=== PATIENT | female | born 1945 | race Caucasian/White ===

== ENCOUNTER → 2018-03-22 08:52 | Outpatient (CLI) | payer MEDICARE, OTHER, SELFPAY ==
[2018-03-22 10:19] LABS: Absolute Lymphocyte Count 1.57 X10^3/ul (0.83-4.51); Absolute Neutrophil Count 2.2 X10^3/uL (2.0-7.7); Basophil# 0.02 X10^3/uL; Basophil% 0.5 % (0-1); Eosinophil# 0.16 X10^3/uL; Eosinophils% 3.7 % (0-5); Hematocrit 48.2 % (37-47); Hemoglobin 16.4 g/dl (12.0-15.0); Lymphocyte # 1.57 X10^3/ul (4.0); Mean Corpuscular Hgb 30.8 pg (27.0-32.0); Mean Corpuscular Volume 90.4 fL (81-99); Mean Platelet Vol. 10.2 fl (6.2-12.0); Monocyte% 9.2 % (0-10); Neutrophil % 50.4 % (47-70); Platelet Count 207 K/mm3 (150-450); RBC Distribution Width CV 13.2 % (11.6-14.6); RBC Distribution Width SD 43.5 fl (35.1-43.9); Red Blood Count 5.33 M/mm3 (4.2-5.4); White Blood Count 4.4 K/mm3 (4.4-11.0)
[2018-03-22 10:22] LABS: POSITIVE COUNT NO; POSITIVE DIFFERENTIAL NO; POSITIVE MORPHOLOGY NO
[2018-03-22 10:43] LABS: Anion Gap 7 (5-15); BUN 18 mg/dL (7-18); BUN/Creat Ratio 19.4 RATIO (10-20); Calcium,Total 9.3 mg/dL (8.5-10.1); Chloride 104 mmol/L (98-107); Cholesterol 209 mg/dL (200); Creatinine, Serum 0.93 mg/dL (0.55-1.02); EST Glomerular Filtration Rate 63 mL/min (>60); Est Glom Filt Rate - Afr Amer 76 mL/min (>60); Glucose 118 mg/dL (74-106); High Density Lipoprotein 64 mg/dL; Potassium 4.2 mmol/L (3.5-5.1); Sodium Level 140 mmol/L (136-145); Thyroid Stim Hormone (TSH) 3.05 uIU/mL (0.358-3.74); Triglycerides 200 mg/dL; Very Low Density Lipoprotein 40 mg/dL (5-40)
[2018-03-22 11:13] LABS: Hemoglobin A1c 6.2 % (4.2-6.3)
== END ==
PROVIDERS: Family Provider Family Medicine; PCP Family Medicine; Visit Provider Family Medicine
DX: Z00.00 Encounter for general adult medical examination without abnormal findings (principal); R35.8 Other polyuria
CPT/HCPCS: 36415; 80048; 80061; 83036; 84443; 85025

== ENCOUNTER → 2018-03-26 15:22 | Outpatient (CLI) | payer MEDICARE, OTHER, SELFPAY ==
--- NOTE | 2018-03-26 15:24 | BI_ITS ---
MAMMOGRAPHY - BILATERAL SCREENING REASON FOR EXAM: Female, 73 years old. Routine annual screening examination. PERTINENT HISTORY: Aunt with breast cancer. TECHNIQUE: Digital bilateral breast velvet (3D mammographic acquisition) in the CC and MLO projections. 2-D mediolateral oblique (MLO) and craniocaudad (CC) views of both breasts were obtained. CAD: Full Field Digital Mammography with Computer Added Detection was performed. COMPARISON: Comparison is made with prior study dated July 24, 2015 and March 09, 2014. FINDINGS: Breast Composition: There are scattered areas of fibroglandular density. There are no dominant masses or suspicious calcifications. No other significant abnormalities are identified. There has been no significant change since the prior study. BI/SCREENING MAMM (CAD), BILAT IMPRESSION: Stable bilateral screening mammogram. Yearly follow-up mammogram recommended. (A) ASSESSMENT CATEGORY: BIRADS Category 1: Negative. A letter regarding these results will be sent to the patient by the facility within 30 days. Approximately 10% of breast cancers are not detected by mammography. A normal mammogram should not delay biopsy of a clinically suspicious abnormality. [id number] Electronically Signed: Ventura Winn MD at 8:02 EDT Tel [phone], Service support ,
== END ==
PROVIDERS: Family Provider Family Medicine; PCP Family Medicine; Visit Provider Family Medicine
DX: Z12.31 Encounter for screening mammogram for malignant neoplasm of breast (principal)
CPT/HCPCS: 77063; 77067

== ENCOUNTER → 2018-09-07 11:12 | Outpatient (CLI) | payer MEDICARE, OTHER, SELFPAY ==
[2018-09-07 14:11] LABS: Vitamin B12 737 pg/mL (211-911)
[2018-09-07 14:15] LABS: Microalbumin,Random Urine 33.1 mg/L (NO RANGE EST.); Microalbumin:Creatinine Ratio 28.3 mg/g CRE (<30 mg/g CRE)
[2018-09-07 14:44] LABS: AST(SGOT) 21 U/L (15-37); Alanine Aminotransfer ALT/SGPT 30 U/L (13-56); Albumin, Serum 3.9 g/dL (3.2-5.0); Alkaline Phosphatase 56 U/L (45-117); Anion Gap 10 (5-15); BUN 23 mg/dL (7-18); BUN/Creat Ratio 24.8 RATIO (10-20); Calcium,Total 9.3 mg/dL (8.5-10.1); Chloride 103 mmol/L (98-107); Creatinine, Serum 0.93 mg/dL (0.55-1.02); EST Glomerular Filtration Rate 63 mL/min (>60); Est Glom Filt Rate - Afr Amer 77 mL/min (>60); Glucose 105 mg/dL (74-106); Potassium 3.8 mmol/L (3.5-5.1); Protein, Total 7.9 g/dL (6.4-8.2); Sodium Level 142 mmol/L (136-145); T4 Free Direct 0.82 ng/dL (0.76-1.46)
== END ==
PROVIDERS: Family Provider Family Medicine; PCP Family Medicine; Visit Provider Family Medicine
DX: E88.81 Metabolic syndrome and other insulin resistance (principal); R53.81 Other malaise
CPT/HCPCS: 36415; 80053; 82043; 82570; 82607; 82746; 84439; 84443

== ENCOUNTER 2018-10-07 14:00 | Outpatient (RCR) | payer MEDICARE, OTHER, SELFPAY ==
--- NOTE | 2018-10-08 07:35 | HP.PTEVAL_ITS ---
Patient's Visit Information GARCIA MELGOZA is a 73 year old F referred to Physical Therapy by Fer Hough with a diagnosis of RTC tenderness. Date of Evaluation: 09/09/18 Physical Therapist: Jm Robles - Visit Plan Frequency: 1x/Week Duration: 4-6 Weeks Plan: Start with RTC ROM AAROM progressing to RTC stability/strength exsercises as tolerated. May use modalities if needed to decrease symptoms. - Subjective Findings: Pt. is here today for her initial evaluation with diagnosis of R RTC tenderness. Pt reports having increased pain in her R shouder, expecially with reaching over head and with attempting to lift anything. She is having difficulty with upper body dressing and with sleeping on her R side. Pt. denies N/T in her arm and no raidiating pain. Pt. reports pain is isolated to R subacromial space. Pt. has some pain in R deltoid. Pt. reports being able to complete most ADLs, but has increased pain while doing so. Pt. is hopeful to reduce symptoms in order get back to completing all ADLs without issues. - Pain R shoulder Pain Intensity (Out of 10): 4 Pain Intensity Range: 0 Comment: only with certain positions. - Objective POSTURE: Pt. has rounded shoulders, equal shoulder heights. Pt. has increased thoracic kyphosis, but is able to correct with TC/VCing. FH posture. PALPATION: Pt. has slight tenderness along posterior aspect of R subacromial space and R bicpitial groove. No pain through rest of shoulder. NEURO: Pt. has normal neuro signs. Normal DTR of bilateral UEs. Pt. has normal sensation. ROM: L shoulder: flexion 177deg, abd 175deg, Functional ER C5 functional IR L2. R shoulder- flexion 170deg increase NW, abd 165deg increase NW, functional ER C4 NE, functional IR L5 increase NW. MMT: LUE- wrist/elbow 5/5 throughout; shoulder- flexon 4+/5, abd 4+/5, ER 4+/5, IR 4+/5, ext 5/5. RUE- wrist/elbow 5/5 throughout; shoulder- flexion 4/5 mild increase NW, abd 4/5 mild increase NW, ER 4/5 increase NW, IR 4+/5 NE, ext 5/5 NE. - Special Tests R Shoulder Drop Sign - IS Test: Negative R Shoulder Empty Can - SS: Positive R Shoulder Belly Press - SupScap: Negative R Shoulder Neer - Impingement: Positive R Shoulder Farooq Fadi - Impingement: Positive R Shoulder Biceps Load Test - Labrum: Negative R Shoulder Speeds Test - Labrum/Biceps: Negative - Goals Goal 1:: Pt to be I with HEP. Goal Time Frame: 4-6 Weeks Goal 2:: Pt. to have increased R shoulder ROM symmetrical to L side without increase in symptoms. Goal Time Frame: 4-6 Weeks Goal 3:: Pt. to have increased R shoulder strength by 1/2 grade of all effected musculature in order to increase stability and joint. Goal Time Frame: 4-6 Weeks Goal 4:: Pt. to sleep throughout the night without increase in symptoms. Goal Time Frame: 4-6 Weeks Goal 5:: Pt. able to complete all ADls and house work without increase in symptoms. Goal Time Frame: 4-6 Weeks - Rehabilitation Potential Physical Therapy Diagnosis: Pt. has signs and symptoms consistent with R RTC pathology. Pt. does not appear to have a tear of the RTC, as she has decent strength and ROM. Pt. does have a slight painful arc with abduction movements. Pt. appears to have a RTC tendonosis and would benefit from PT to increase R shoulder ROM, strength and decreased symptoms in order to get back to all ADLS and recreational activities withotu increase in symptoms. Rehabilitation Potential: Excellent - Anticipated Interventions Patient/Client Instruction: Educate patient on: Condition, Plan of Care, Risk Factors, Benefits of Fitness Program For the Purpose of:: To foster healthy habits, To improve decision making, To facilitate caregiver knowledge, To improve self management, To prevent re- injury, To improve ability to perform tasks related to life management, To improve tolerance to ADL's Therapeutic Exercise to Include: Strength training, Power training, Postural training, Flexibilty training, Passive ROM, Active ROM, Scapular Strength/Stabilization For the Purpose of:: To decrease pain, To decrease swelling/inflammation, To increase ROM, To improve nutrient delivery to tissue, To increase oxygenation perfusion, To improve muscle performance and motor function, To improve ability to perform ADL's, To improve health of tissue, To decrease soft tissue restriction, To increase flexibility/ROM Manual Therapy Techniques to Include: Mobilization, Functional dry needling, Soft tissue mobilization For the Purpose of:: To decrease pain, To decrease swelling/inflammation, To increase ROM, To improve nutrient delivery to tissue Cryotherapy (ice pack, ice massage): Yes Ultrasound (thermal/non thermal): Yes For the Purpose of:: To decrease pain, To decrease swelling/inflammation, To increase ROM Thank you for the opportunity to evaluate your patient. For Medicare and Medicare HMO plans, please review the plan of care and approve it. It will need to be FAXED BACK to us at [phone] for Medicare purposes. For Medicare only, by signing this I certify the plan of care. Please let me know if there are questions or concerns regarding this plan of care. Physician Signature: Date:
--- NOTE | 2018-10-08 07:49 | HP.PTREVAL_ITS ---
Fer Hough, It has been my pleasure to treat GARCIA MELGOZA over the last 5 visits for RTC tenderness. Please see the progress note below for an update on the physical therapy plan of care! Subjective: Pt. reports I am doing pretty well I just fell a little weak in my shoulder, I am not having much pain any more. She reports being HEP compliant without issues. Pt. pleased. Objective/Function: ROM: R shoulder- flexion- 175deg, abd 173deg, Functional IR L2, functional ER C5 no pain. MMT: flexion 4+/5, abd 4+/5, ER 4+/5, IR 5/5, ext 5/5. Pt. reports being able to sleep withtout increase in symptoms. Pt. does have mild increase in symptoms with reaching out with wt., but minimal, no lasting symptoms. Pt. is independent with HEP without issues. Plan Plan: Start with RTC ROM AAROM progressing to RTC stability/strength exsercises as tolerated. May use modalities if needed to decrease symptoms. Goals Goal 1:: Pt to be I with HEP. Goal Time Frame: 4-6 Weeks Goal Progress: Goal Met Goal 2:: Pt. to have increased R shoulder ROM symmetrical to L side without increase in symptoms. Goal Time Frame: 4-6 Weeks Goal Progress: Goal Met Goal 3:: Pt. to have increased R shoulder strength by 1/2 grade of all effected musculature in order to increase stability and joint. Goal Time Frame: 4-6 Weeks Goal Progress: Goal Met Goal 4:: Pt. to sleep throughout the night without increase in symptoms. Goal Time Frame: 4-6 Weeks Goal Progress: Goal Met Goal 5:: Pt. able to complete all ADls and house work without increase in symptoms. Goal Time Frame: 4-6 Weeks Goal Progress: Progressing Anticipated Interventions Patient/Client Instruction: Educate patient on: Condition, Plan of Care, Risk Factors, Benefits of Fitness Program For the Purpose of:: To foster healthy habits, To improve decision making, To facilitate caregiver knowledge, To improve self management, To prevent re- injury, To improve ability to perform tasks related to life management, To improve tolerance to ADL's Therapeutic Exercise to Include: Strength training, Power training, Postural training, Flexibilty training, Passive ROM, Active ROM, Scapular Strength/Stabilization For the Purpose of:: To decrease pain, To decrease swelling/inflammation, To increase ROM, To improve nutrient delivery to tissue, To increase oxygenation perfusion, To improve muscle performance and motor function, To improve ability to perform ADL's, To improve health of tissue, To decrease soft tissue restriction, To increase flexibility/ROM Manual Therapy Techniques to Include: Mobilization, Functional dry needling, Soft tissue mobilization For the Purpose of:: To decrease pain, To decrease swelling/inflammation, To increase ROM, To improve nutrient delivery to tissue Cryotherapy (ice pack, ice massage): Yes Ultrasound (thermal/non thermal): Yes For the Purpose of:: To decrease pain, To decrease swelling/inflammation, To increase ROM Please do not hesitate to contact me at [phone] by phone or if you have questions or concerns regarding this new plan of care! Sincerely, Jm Robles
--- NOTE | 2019-01-05 12:29 | HP.PT.NRP ---
HP - Discharge Summary (1) - Patient Information GARCIA MELGOZA was seen in my office for initial evaluation on 09/09/18. The following Plan of Care was established for this patient: Initial Frequency: 1x/Week Initial Duration: 4-6 Weeks - Anticipated Interventions Patient/Client Instruction: Educate patient on: Condition, Plan of Care, Risk Factors, Benefits of Fitness Program For the Purpose of:: To foster healthy habits, To improve decision making, To facilitate caregiver knowledge, To improve self management, To prevent re-injury, To improve ability to perform tasks related to life management, To improve tolerance to ADL's Therapeutic Exercise to Include: Strength training, Power training, Postural training, Flexibilty training, Passive ROM, Active ROM, Scapular Strength/Stabilization For the Purpose of:: To decrease pain, To decrease swelling/inflammation, To increase ROM, To improve nutrient delivery to tissue, To increase oxygenation perfusion, To improve muscle performance and motor function, To improve ability to perform ADL's, To improve health of tissue, To decrease soft tissue restriction, To increase flexibility/ROM Manual Therapy Techniques to Include: Mobilization, Functional dry needling, Soft tissue mobilization For the Purpose of:: To decrease pain, To decrease swelling/inflammation, To increase ROM, To improve nutrient delivery to tissue Cryotherapy (ice pack, ice massage): Yes Ultrasound (thermal/non thermal): Yes For the Purpose of:: To decrease pain, To decrease swelling/inflammation, To increase ROM This patient was last seen in our office 10/07/18. Pertinent comments regarding their Physical therapy will appear below: PT. ws seen for her RTC pain. Pt. was treated with strengthening, ROM and US. Pt. was doing 85% better at our last visit. She was to follow up with PT if needed. Pt. has not been seen in several months. Pt. will be DC from PT at this point intime. At this point I will be discontinuing this patient from physical therapy. I would be happy to see this patient again in the future if found appropriate by the physician. Thank you! Jm Robles, NATASHAT
== END 2018-10-07 19:00 | disposition home or self-care (01) ==
LOC: PT 14:00
PROVIDERS: Family Provider Family Medicine; PCP Family Medicine; Referring Provider Family Medicine; Visit Provider Family Medicine
DX: M25.511 Pain in right shoulder (principal)
CPT/HCPCS: 97110; 97161

== ENCOUNTER 2018-11-17 18:39 | Emergency (ER) | payer MEDICARE, OTHER, SELFPAY ==
[2018-11-17 18:40] VITALS: BP 200/98; PULSE 89; RESP 16; TEMP 36.3; O2SAT 96; BMI 35.9
[2018-11-17 18:59] VITALS: TEMP 36.3
--- NOTE | 2018-11-17 19:08 | ED.VISSUMM ---
- ER Visit Summary Date of Service: 11/17/18 Chief Complaint: Dog bite left thumb History of Present Illness: The patient is a 73 F that was bitten by an older dog on her left thumb. Patient states this is not her pet. She is unsure of her last tetanus update. She is right-hand dominant. Physical Examination: Vital signs significant for blood pressure of 200/98, otherwise unremarkable. Patient sitting in a bedside chair no acute distress. Head neck examination is unremarkable. Heart is regular rate and rhythm. Lung sounds are clear. Left upper extremity examination was a puncture wound to the pad of the left thumb measuring approximately 0.5 cm. There is no active bleeding at this time. She has full range of motion and sensation is intact. Test Results: Left thumb x-rays reveal no evidence of foreign body. Emergency Department Course and Treatment: Patient is given tetanus update along with p.o. Augmentin. Wound is cleansed and dressed. She be discharged with 3 days of antibiotics at home. Treatment Plan: [] Disposition: Discharge Impression: Dog bite left thumb This note was generated with [employer] dictation software. It may contain incorrect words, spelling, and punctuation that were not noted in review of the chart prior to signing ED Disposition - Plan for ED Patient: Chief Complaint: Bite Referrals: Fer Hough MD [Primary Care Provider] -
--- NOTE | 2018-11-17 19:10 | RAD_ITS ---
STUDY: X-RAY - LEFT HAND, ATTENTION FIRST FINGER REASON FOR EXAM: Female, 73 years old. Dogbite TECHNIQUE: 3 view(s) of the finger were obtained. COMPARISON: None. FINDINGS: There are degenerative changes of the carpometacarpal joint. Normal metacarpal. Normal metacarpophalangeal joint. Normal proximal phalanx. Normal distal phalanx. Normal interphalangeal joint. Soft tissues appear grossly unremarkable. RAD/Finger(s) Min 2 Views IMPRESSION: 1. There are no No opaque foreign body. 2. No fracture or dislocation. Electronically Signed: Ronaldo Barba DO at 19:37 EST Tel [phone], Service support ,
--- NOTE | 2018-11-17 19:11 | ED.DEP ---
ED Disposition - Plan for ED Patient: Disposition: Home or Assisted Living Chief Complaint: Bite Instructions: ED Bite Dog Prescriptions: Amox/Clavulanate Tablet [Augmentin Tablet] 875 mg PO Q12H #6 tablet Referrals: Fer Hough MD [Primary Care Provider] - 1 Week
[2018-11-17] MEDS: Diphth,Pertuss(Acell),Tet Vac 0.5 ML Vial IM (19:12)
[2018-11-17] MEDS: Amox/Clavulanate 875 MG Tablet PO (19:12)
== END 2018-11-17 19:54 | disposition home or self-care (01) ==
LOC: ED 19:26
PROVIDERS: Emergency Provider Emergency Medicine; Family Provider Family Medicine; PCP Family Medicine
DX: S61.052A Open bite of left thumb without damage to nail, initial encounter (principal); W54.0XXA Bitten by dog, initial encounter; Y93.9 Activity, unspecified; Y92.89 Other specified places as the place of occurrence of the external cause; Y99.9 Unspecified external cause status; Z23 Encounter for immunization; I10 Essential (primary) hypertension; F32.9 Major depressive disorder, single episode, unspecified
CPT/HCPCS: 73140; 90471; 90715; 99282

== ENCOUNTER → 2019-04-22 11:12 | Outpatient (CLI) | payer MEDICARE, OTHER, SELFPAY ==
--- NOTE | 2019-04-22 11:16 | RAD_ITS ---
HISTORY:left knee pain for several months now left knee pain for several months now COMPARISON: None FINDINGS: # of images incl. paperwork: 4 XR Knee Complete 4 Views or More: Left BONE AND JOINTS: No acute fracture or subluxation. There is minimal lateral patellar tilt SOFT TISSUES: Unremarkable. No radiopaque foreign body. RAD/Knee 4 or More Views IMPRESSION: No acute pathology Minimal lateral patellar tilt If symptoms persist consider MRI for further evaluation at [phone] Reported and signed by: Tri Carter DO Electronically Signed: Tri Carter DO at 0:07 EDT Tel , Service support ,
== END ==
PROVIDERS: Family Provider Family Medicine; PCP Family Medicine; Referring Provider Family Medicine; Visit Provider Family Medicine
DX: M25.562 Pain in left knee (principal)
CPT/HCPCS: 73564

== ENCOUNTER → 2019-05-05 10:39 | Outpatient (CLI) | payer MEDICARE, OTHER, SELFPAY ==
[2019-05-05 12:16] LABS: Absolute Lymphocyte Count 2.35 X10^3/ul (0.83-4.51); Basophil# 0.03 X10^3/uL; Basophil% 0.5 % (0-1); Eosinophil# 0.14 X10^3/uL; Eosinophils% 2.3 % (0-5); Hematocrit 46.2 % (37-47); Hemoglobin 15.9 g/dl (12.0-15.0); Lymphocyte # 2.35 X10^3/ul (4.0); Lymphocyte % 38.4 % (19-41); Mean Corp Hgb Conc 34.4 g/gl (32-36); Mean Corpuscular Hgb 30.9 pg (27.0-32.0); Mean Corpuscular Volume 89.7 fL (81-99); Mean Platelet Vol. 9.7 fl (6.2-12.0); Monocyte# 0.57 X10^3/uL; Monocyte% 9.3 % (0-10); Neutrophil # 3.02 X10^3/uL (2.7-7.7); Neutrophil % 49.3 % (47-70); Platelet Count 216 K/mm3 (150-450); RBC Distribution Width CV 13.1 % (11.6-14.6); RBC Distribution Width SD 42.8 fl (35.1-43.9); Red Blood Count 5.15 M/mm3 (4.2-5.4); White Blood Count 6.1 K/mm3 (4.4-11.0)
[2019-05-05 12:17] LABS: POSITIVE COUNT NO; POSITIVE DIFFERENTIAL NO; POSITIVE MORPHOLOGY NO
[2019-05-05 12:36] LABS: Microalbumin,Random Urine 15.1 mg/L (NO RANGE EST.); Microalbumin:Creatinine Ratio 22.5 mg/g CRE (<30 mg/g CRE)
[2019-05-05 12:46] LABS: ALB/GLOB Ratio 1.2 RATIO (0.9-2.4); AST(SGOT) 21 U/L (15-37); Alanine Aminotransfer ALT/SGPT 32 U/L (13-56); Albumin, Serum 4.1 g/dL (3.2-5.0); Alkaline Phosphatase 69 U/L (45-117); Anion Gap 5 (5-15); BUN 25 mg/dL (7-18); Calcium,Total 9.5 mg/dL (8.5-10.1); Chloride 105 mmol/L (98-107); Creatinine, Serum 0.96 mg/dL (0.55-1.02); EST Glomerular Filtration Rate 60 mL/min (>60); Est Glom Filt Rate - Afr Amer 73 mL/min (>60); Globulin 3.5 g/dL (2.2-4.2); Glucose 91 mg/dL (74-106); Protein, Total 7.6 g/dL (6.4-8.2); Sodium Level 139 mmol/L (136-145); Thyroid Stim Hormone (TSH) 3.73 uIU/mL (0.358-3.74)
== END ==
PROVIDERS: Family Provider Family Medicine; PCP Family Medicine; Referring Provider Family Medicine; Visit Provider Family Medicine
DX: I10 Essential (primary) hypertension (principal); M17.10 Unilateral primary osteoarthritis, unspecified knee
CPT/HCPCS: 36415; 80053; 82043; 82570; 84443; 85025

== ENCOUNTER → 2019-07-22 07:56 | Outpatient (CLI) | payer MEDICARE, OTHER, SELFPAY ==
[2019-07-22 11:05] LABS: AST(SGOT) 23 U/L (15-37); Alanine Aminotransfer ALT/SGPT 35 U/L (13-56); Albumin, Serum 3.8 g/dL (3.2-5.0); Alkaline Phosphatase 57 U/L (45-117); Anion Gap 3 (5-15); BUN 21 mg/dL (7-18); BUN/Creat Ratio 21.7 RATIO (10-20); Calcium,Total 9.1 mg/dL (8.5-10.1); Chloride 105 mmol/L (98-107); Creatinine, Serum 0.97 mg/dL (0.55-1.02); EST Glomerular Filtration Rate 60 mL/min (>60); Est Glom Filt Rate - Afr Amer 73 mL/min (>60); Globulin 3.7 g/dL (2.2-4.2); Glucose 117 mg/dL (74-106); Protein, Total 7.5 g/dL (6.4-8.2); Sodium Level 139 mmol/L (136-145)
[2019-09-21 09:56] VITALS: BMI 35.9
== END ==
PROVIDERS: Family Provider Family Medicine; PCP Family Medicine; Referring Provider Family Medicine; Visit Provider Family Medicine
DX: I10 Essential (primary) hypertension (principal)
CPT/HCPCS: 36415; 80053

== ENCOUNTER → 2019-08-04 08:36 | Outpatient (CLI) | payer MEDICARE, OTHER, SELFPAY ==
[2019-08-04 10:03] LABS: Absolute Lymphocyte Count 1.77 X10^3/uL (0.83-4.51); Absolute Neutrophil Count 2.6 X10^3/uL (2.0-7.7); Basophil# 0.04 X10^3/uL; Basophil% 0.8 % (0-1); Eosinophil# 0.16 X10^3/uL; Eosinophils% 3.2 % (0-5); Hematocrit 46.3 % (37-47); Hemoglobin 15.4 g/dL (12.0-15.0); Lymphocyte # 1.77 X10^3/ul (4.0); Lymphocyte % 35.7 % (19-41); Mean Corp Hgb Conc 33.3 g/dL (32-36); Mean Corpuscular Hgb 30.4 pg (27.0-32.0); Mean Corpuscular Volume 91.5 fL (81-99); Mean Platelet Vol. 9.8 fl (6.2-12.0); Monocyte% 8.1 % (0-10); NRBC Flagged by Analyzer 0 % (0-5); Neutrophil # 2.57 X10^3/uL (2.7-7.7); Neutrophil % 51.8 % (47-70); Platelet Count 209 K/mm3 (150-450); RBC Distribution Width CV 12.7 % (11.6-14.6); RBC Distribution Width SD 42.4 fl (35.1-43.9); Red Blood Count 5.06 M/mm3 (4.2-5.4)
[2019-08-04 10:41] LABS: AST(SGOT) 23 U/L (15-37); Alanine Aminotransfer ALT/SGPT 32 U/L (13-56); Albumin, Serum 3.7 g/dL (3.2-5.0); Alkaline Phosphatase 55 U/L (45-117); Anion Gap 6 (5-15); BUN 24 mg/dL (7-18); BUN/Creat Ratio 23.8 RATIO (10-20); CRP < 2.90 mg/L (0.0-3.0); Calcium,Total 9.3 mg/dL (8.5-10.1); Chloride 104 mmol/L (98-107); Creatinine, Serum 1.01 mg/dL (0.55-1.02); EST Glomerular Filtration Rate 57 mL/min (>60); Est Glom Filt Rate - Afr Amer 69 mL/min (>60); Ferritin 92 ng/mL (8-252); Globulin 3.8 g/dL (2.2-4.2); Glucose 132 mg/dL (74-106); Hemoglobin A1c 6.1 % (4.2-6.3); Iron 124 ug/dL (50-170); Iron Binding Capacity,Total 321 ug/dL (250-450); PERCENT IRON SATURATION 38.6 % (15.0-55.0); Protein, Total 7.5 g/dL (6.4-8.2); Sodium Level 141 mmol/L (136-145); Thyroid Stim Hormone (TSH) 3.47 uIU/mL (0.358-3.74)
[2019-08-04 11:20] LABS: Hepatitis C Antibody Non-Reactive (Nonreactive); Vitamin D,25 Hydroxy 36.7 ng/mL (29.95-100.01)
[2019-08-07 13:44] LABS: Haptoglobin 91 mg/dL (34-200)
== END ==
PROVIDERS: Family Provider Family Medicine; PCP Family Medicine; Referring Provider Family Medicine; Visit Provider Family Medicine
DX: R17 Unspecified jaundice (principal); R53.83 Other fatigue; M19.90 Unspecified osteoarthritis, unspecified site
CPT/HCPCS: 36415; 80048; 80053; 80061; 80076; 82043; 82306; 82570; 82728; 83010; 83036; 83540; 83550; 84443; 85025; 85610; 86140; 86803

== ENCOUNTER → 2019-08-08 09:46 | Outpatient (CLI) | payer MEDICARE, OTHER, SELFPAY ==
--- NOTE | 2019-08-08 09:50 | US_ITS ---
STUDY: ABDOMINAL ULTRASOUND - RIGHT UPPER QUADRANT REASON FOR VISIT: Female, 74 years old elevated bilirubin. TECHNIQUE: Ultrasound evaluation of the right upper quadrant was performed with real-time and static barry-scale imaging. TECHNICAL QUALITY: Adequate. COMPARISON: None. FINDINGS: Liver: The liver measures 17 cm. There is increased echogenicity consistent with fatty infiltration. The bile ducts are within normal limits. There is hepatic color flow. The direction of portal flow is hepatopetal. There is no demonstrated mass lesion. Gallbladder: The patient is status post cholecystectomy. Common Bile Duct (C.B.D.): The common bile duct measures 5 mm. Pancreas: Normal size of the visualized head, body and tail of the pancreas. There is normal echogenicity of the pancreas. There is no demonstrated pancreatic mass or cyst. Right Kidney: Normal size of the right kidney. The right kidney measures 12.6 x 5.9 x 5.4 cm. Normal renal cortex. The right cortex measures 1.1 cm. There are at least 3 renal cortical cysts. One cyst at the anterior upper midpole measuring 1.8 x 2.3 x 2.1 cm. The second is at the anterior midpole, measuring 1.7 x 1.6 x 2.3 cm. A third fluid filled area that may be a septated cyst measuring 2.6 x 3.6 x 3.8 cm is adjacent to the renal pelvis. Distention of the renal pelvis itself is not excluded. There is no other sign of right hydronephrosis, however. US/Abdomen Limited IMPRESSION: 1. Prior cholecystectomy. 2. Fatty infiltration of the liver. 3. Unremarkable pancreas. 4. Renal cortical cysts, as noted. Possible fluid-filled extrarenal pelvis. Electronically Signed: Silviano Kate MD at 17:01 EDT , Service support ,
== END ==
PROVIDERS: Family Provider Family Medicine; PCP Family Medicine; Referring Provider Family Medicine; Visit Provider Family Medicine
DX: R17 Unspecified jaundice (principal)
CPT/HCPCS: 76705

== ENCOUNTER → 2019-10-14 07:56 | Outpatient (CLI) | payer MEDICARE, OTHER, SELFPAY ==
[2019-09-21 09:56] VITALS: BMI 35.9
[2019-10-14 10:21] LABS: AST(SGOT) 19 U/L (15-37); Alanine Aminotransfer ALT/SGPT 33 U/L (13-56); Albumin, Serum 3.8 g/dL (3.2-5.0); Alkaline Phosphatase 53 U/L (45-117); Bilirubin, Direct 0.32 mg/dL (0.00-0.30); Globulin 3.7 g/dL (2.2-4.2); Protein, Total 7.5 g/dL (6.4-8.2)
== END ==
PROVIDERS: Family Provider Family Medicine; PCP Family Medicine; Referring Provider Family Medicine; Visit Provider Family Medicine
DX: K76.0 Fatty (change of) liver, not elsewhere classified (principal)
CPT/HCPCS: 36415; 80076

== ENCOUNTER → 2020-02-16 09:20 | Outpatient (CLI) | payer MEDICARE, OTHER, SELFPAY ==
[2019-09-21 09:56] VITALS: BMI 35.9
--- NOTE | 2020-02-16 09:23 | BI_ITS ---
MAMMOGRAPHY - BILATERAL SCREENING REASON FOR EXAM: Female, 74 years old. Routine annual screening examination. PERTINENT HISTORY: Aunt with breast cancer. TECHNIQUE: Digital bilateral breast paddy (3D mammographic acquisition) in the CC and MLO projections. 2-D mediolateral oblique (MLO) and craniocaudad (CC) views of both breasts were obtained. CAD: Full Field Digital Mammography with Computer Added Detection was performed. COMPARISON: Comparison is made with prior examination dated March 26, 2018 and July 24, 2015. FINDINGS: Breast Composition: The breasts are almost entirely fatty. There are no dominant masses or suspicious calcifications. No other significant abnormalities are identified. There has been no significant change since the prior study. BI/SCREEN MAMM (CAD) W/PADDY BILAT IMPRESSION: Stable bilateral screening mammogram. Yearly follow-up mammogram recommended. (A) ASSESSMENT CATEGORY: BIRADS Category 1: Negative. A letter regarding these results will be sent to the patient by the facility within 30 days. Approximately 10% of breast cancers are not detected by mammography. A normal mammogram should not delay biopsy of a clinically suspicious abnormality. [id number] Electronically Signed: Ventura Winn, at 10:50 EDT , Service support ,
--- NOTE | 2020-02-16 09:27 | BD_ITS ---
STUDY: DUAL ENERGY X-RAY ABSORPTIOMETRY / DXA REASON FOR EXAM: Female, 74 years old. SECTION HAND -- TAKES HCTZ -- TAKES MULTIVITAMIN -- HX OF TAKING FOSAMAX IN PAST -- DOES NO EXERCISE -- FAMILY HX OF OSTEO- MOTHER -- HX OF RIGHT HIP REPLACEMENT -- LOULOU OF 3 INCHES TECHNIQUE: Bone Mineral Density (BMD) measurements of lumbar spine and left hip were obtained. COMPARISON: Comparison is made with prior examination dated May 11, 2012. FINDINGS: Lumbar Spine (L1-L4): g/cm2 (1.371) / T-score (1.6) / Z-score (3.3) Findings are suggestive of normal bone density with a low fracture risk. Left Femur Total: g/cm2 (1.031) / T-score (0.2) / Z-score (1.9) Left Femoral Neck: g/cm2 (0.974) / T-score (-0.5) / Z-score (1.4) The T-Scores on the most recent prior examination were: Lumbar Spine (L1-L4): There has been improvement of bone density since the previous examination. Left Femur Total: which represents an improvement of 0.9%. BD/Dexa Bone Density Study IMPRESSION: The patient is considered normal as outlined below according to World [employer] Organization (WHO) criteria with a low fracture risk. There has been improvement of bone density since the previous examination. Reference Information: The T-score is the number of standard deviations above or below the standard which is normal for young adults at their peak bone mineral density. The World Health Organization (WHO) interprets the T-scores as follows: Above -1 Normal bone density Between -1 and -2.5 Osteopenia Equal to / or below -2.5 Osteoporosis As a practical clinical guideline, osteopenia may be graded as follows: Mild -1 through -1.5 Moderate -1.6 through -2.0 Severe -2.1 through -2.4 The Z-score is the number of standard deviations above or below age-matched controls. A Z-score of less than -1.5 would be considered abnormal. References: 1. NIH Osteoporosis and Related Bone Diseases http://www.osteo.org 2. International Society for Clinical Densitometry http://www.iscd.org 3. National Osteoporosis Foundation http://www.nof.org Electronically Signed: Ventura Winn, at 10:17 EDT , Service support ,
== END ==
PROVIDERS: PCP Family Medicine; Referring Provider Nurse Practitioner Adult Health; Visit Provider Nurse Practitioner Adult Health
DX: Z12.31 Encounter for screening mammogram for malignant neoplasm of breast (principal); Z78.0 Asymptomatic menopausal state
CPT/HCPCS: 77063; 77067; 77080

== ENCOUNTER → 2020-07-17 11:24 | Outpatient (CLI) | payer MEDICARE, OTHER, SELFPAY ==
[2019-09-21 09:56] VITALS: BMI 35.9
[2020-07-17 16:28] LABS: Absolute Lymphocyte Count 1.88 X10^3/uL (0.83-4.51); Absolute Neutrophil Count 3.1 X10^3/uL (2.0-7.7); Basophil# 0.04 X10^3/uL; Basophil% 0.7 % (0-1); Eosinophil# 0.28 X10^3/uL; Eosinophils% 4.8 % (0-5); Hematocrit 48.9 % (37-47); Hemoglobin 16.2 g/dL (12.0-15.0); Lymphocyte # 1.88 X10^3/ul (4.0); Lymphocyte % 32.3 % (19-41); Mean Corp Hgb Conc 33.1 g/dL (32-36); Mean Corpuscular Hgb 30.6 pg (27.0-32.0); Mean Corpuscular Volume 92.4 fL (81-99); Mean Platelet Vol. 10.6 fl (6.2-12.0); Monocyte# 0.52 X10^3/uL; Monocyte% 8.9 % (0-10); NRBC Flagged by Analyzer 0 % (0-5); Neutrophil # 3.07 X10^3/uL (2.7-7.7); Neutrophil % 52.8 % (47-70); Platelet Count 221 K/mm3 (150-450); RBC Distribution Width CV 12.7 % (11.6-14.6); Red Blood Count 5.29 M/mm3 (4.2-5.4); White Blood Count 5.8 K/mm3 (4.4-11.0)
[2020-07-17 16:37] LABS: AST(SGOT) 25 U/L (15-37); Alanine Aminotransfer ALT/SGPT 30 U/L (13-56); Albumin, Serum 3.9 g/dL (3.2-5.0); Alkaline Phosphatase 55 U/L (45-117); Anion Gap 5 (5-15); BUN 19 mg/dL (7-18); BUN/Creat Ratio 21.3 RATIO (10-20); Calcium,Total 9.8 mg/dL (8.5-10.1); Chloride 104 mmol/L (98-107); Creatinine, Serum 0.89 mg/dL (0.55-1.02); EST Glomerular Filtration Rate 66 mL/min (>60); Est Glom Filt Rate - Afr Amer 79 mL/min (>60); Glucose 84 mg/dL (74-106); Potassium 3.9 mmol/L (3.5-5.1); Protein, Total 7.9 g/dL (6.4-8.2); Sodium Level 139 mmol/L (136-145)
[2020-07-17 16:44] LABS: Microalbumin,Random Urine 18.2 mg/L (NO RANGE EST.); Microalbumin:Creatinine Ratio 33.4 mg/g CRE (<30 mg/g CRE)
== END ==
PROVIDERS: PCP Family Medicine; Referring Provider Family Medicine; Visit Provider Family Medicine
DX: I10 Essential (primary) hypertension (principal); E66.9 Obesity, unspecified; Z68.35 Body mass index [BMI] 35.0-35.9, adult
CPT/HCPCS: 36415; 80053; 82043; 82570; 85025

== ENCOUNTER → 2020-07-25 10:20 | Outpatient (CLI) | payer MEDICARE, OTHER, SELFPAY ==
[2019-09-21 09:56] VITALS: BMI 35.9
--- NOTE | 2020-07-25 10:21 | US_ITS ---
STUDY: ABDOMINAL ULTRASOUND REASON FOR EXAM: Female, 75 years old. F/u renal cysts seen 1 year ago -- s/p cholecystectomy TECHNIQUE: Transabdominal ultrasound was performed with real-time and static barry scale imaging. TECHNICAL QUALITY: Adequate. COMPARISON: Comparison is made with prior study dated 08/08/2019. FINDINGS: Liver: The liver measures 16.8 cm. There is increased echogenicity consistent with fatty infiltration. The bile ducts are within normal limits. There is hepatic color flow. The direction of portal flow is hepatopetal. There is no demonstrated mass lesion. Portal vein measurement: Gallbladder: The patient is status post cholecystectomy. Common Bile Duct (C.B.D.): The common bile duct measures 7.2 mm. Pancreas: Normal size of the head, body and tail of the pancreas. There is increased echogenicity of the pancreas. There is no demonstrated pancreatic mass or cyst. Spleen: Normal size of the spleen. The spleen measures 9.8 cm x 4.8 cm x 4.5 cm. Right Kidney: Normal size of the right kidney. The right kidney measures 12.6 cm x 6.1 cm x 4.8 cm. Normal renal cortex. The right cortex measures 1.1 cm. 4 renal cysts are seen. The largest measures 3.6 cm x 4.5 cm x 3 cm. There is no right hydronephrosis. Left Kidney: Normal size of the left kidney. The left kidney measures 11.6 cm x 4.8 cm x 4.8 cm. Normal renal cortex. The left cortex measures 1.6 cm. There is a 2.7 cm x 3 cm x 2.3 cm cyst. There is no left hydronephrosis. Aorta: Calcific plaques. I.V.C.: The IVC is patent. There is no ascites. US/Abdomen Complete IMPRESSION: Bilateral renal cysts more prominent on the right side. Status post cholecystectomy. Fatty infiltration of the liver. Electronically Signed: Ventura Winn, at 12:31 EDT , Service support ,
== END ==
PROVIDERS: PCP Family Medicine; Referring Provider Family Medicine; Visit Provider Family Medicine
DX: N28.1 Cyst of kidney, acquired (principal)
CPT/HCPCS: 76700

== ENCOUNTER → 2021-01-14 08:18 | Outpatient (CLI) | payer MEDICARE, OTHER, SELFPAY ==
[2019-09-21 09:56] VITALS: BMI 35.9
[2021-01-14 10:18] LABS: Absolute Neutrophil Count 3.7 X10^3/uL (2.0-7.7); Basophil# 0.04 X10^3/uL; Basophil% 0.6 % (0-1); Eosinophil# 0.15 X10^3/uL; Eosinophils% 2.4 % (0-5); Hematocrit 49.5 % (37-47); Hemoglobin 16.1 g/dL (12.0-15.0); Lymphocyte % 31.4 % (19-41); Mean Corp Hgb Conc 32.5 g/dL (32-36); Mean Corpuscular Hgb 29.7 pg (27.0-32.0); Mean Corpuscular Volume 91.3 fL (81-99); Mean Platelet Vol. 10.3 fl (6.2-12.0); Monocyte% 7.8 % (0-10); NRBC Flagged by Analyzer 0 % (0-5); Neutrophil # 3.65 X10^3/uL (2.7-7.7); Neutrophil % 57.3 % (47-70); Platelet Count 237 K/mm3 (150-450); RBC Distribution Width CV 12.6 % (11.6-14.6); RBC Distribution Width SD 42.5 fl (35.1-43.9); Red Blood Count 5.42 M/mm3 (4.2-5.4); White Blood Count 6.4 K/mm3 (4.4-11.0)
[2021-01-14 10:37] LABS: AST(SGOT) 18 U/L (15-37); Alanine Aminotransfer ALT/SGPT 32 U/L (13-56); Albumin, Serum 3.7 g/dL (3.2-5.0); Alkaline Phosphatase 49 U/L (45-117); Anion Gap 4 (5-15); BUN 18 mg/dL (7-18); BUN/Creat Ratio 19.4 RATIO (10-20); Calcium,Total 9.4 mg/dL (8.5-10.1); Chloride 104 mmol/L (98-107); Creatinine, Serum 0.93 mg/dL (0.55-1.02); EST Glomerular Filtration Rate 63 mL/min (>60); Est Glom Filt Rate - Afr Amer 76 mL/min (>60); Globulin 3.6 g/dL (2.2-4.2); Glucose 119 mg/dL (74-106); Protein, Total 7.3 g/dL (6.4-8.2); Sodium Level 139 mmol/L (136-145)
== END ==
PROVIDERS: PCP Family Medicine; Referring Provider Family Medicine; Visit Provider Family Medicine
DX: K76.0 Fatty (change of) liver, not elsewhere classified (principal)
CPT/HCPCS: 36415; 80053; 85025

== ENCOUNTER 2021-01-15 08:00 | Outpatient (RCR) | payer MEDICARE, OTHER, SELFPAY ==
[2019-09-21 09:56] VITALS: BMI 35.9
[2021-01-15] MEDS: COVID-19 VACC, MRNA(PFIZER)/PF 30 MCG/0.3 ML SYRINGE IM (14:19)
[2021-02-05] MEDS: COVID-19 VACC, MRNA(PFIZER)/PF 30 MCG/0.3 ML SYRINGE IM (14:10)
== END 2021-04-16 23:59 ==
LOC: IMMUN 08:00
PROVIDERS: PCP Family Medicine; Visit Provider Family Medicine
DX: Z23 Encounter for immunization (principal)
CPT/HCPCS: 0001A; 0002A; 91300

== ENCOUNTER → 2021-01-17 10:27 | Outpatient (CLI) | payer MEDICARE, OTHER, SELFPAY ==
[2019-09-21 09:56] VITALS: BMI 35.9
[2021-01-17 12:13] LABS: Erythrocyte Sedimentation Rate 8 mm/hr (0-30)
[2021-01-17 12:26] LABS: Microalbumin,Random Urine 21.8 mg/L (NO RANGE EST.); Microalbumin:Creatinine Ratio 14.7 mg/g CRE (<30 mg/g CRE)
[2021-01-17 12:32] LABS: CRP < 2.90 mg/L (0.0-3.0); Ferritin 118 ng/mL (8-252)
[2021-01-18 20:08] LABS: Endomysial Antibody IgA Negative (Negative)
[2021-01-18 21:43] LABS: Immunoglobulin A 133 mg/dL (64-422); t-Transglutaminase IgA <2 U/mL (0-3)
== END ==
PROVIDERS: PCP Family Medicine; Referring Provider Family Medicine; Visit Provider Family Medicine
DX: R19.7 Diarrhea, unspecified (principal); I10 Essential (primary) hypertension; G25.81 Restless legs syndrome
CPT/HCPCS: 36415; 82043; 82570; 82728; 82784; 83516; 85652; 86140; 86255

== ENCOUNTER → 2021-03-22 09:58 | Outpatient (CLI) | payer MEDICARE, OTHER, SELFPAY ==
[2019-09-21 09:56] VITALS: BMI 35.9
[2021-03-22 12:08] LABS: Absolute Neutrophil Count 2.4 X10^3/uL (2.0-7.7); Basophil# 0.04 X10^3/uL; Basophil% 0.8 % (0-1); Eosinophil# 0.17 X10^3/uL; Eosinophils% 3.6 % (0-5); Hematocrit 50.1 % (37-47); Hemoglobin 16.1 g/dL (12.0-15.0); Lymphocyte % 35.7 % (19-41); Mean Corp Hgb Conc 32.1 g/dL (32-36); Mean Corpuscular Hgb 29.6 pg (27.0-32.0); Mean Corpuscular Volume 92.1 fL (81-99); Mean Platelet Vol. 10.4 fl (6.2-12.0); Monocyte# 0.47 X10^3/uL; Monocyte% 9.9 % (0-10); NRBC Flagged by Analyzer 0 % (0-5); Neutrophil # 2.38 X10^3/uL (2.7-7.7); Platelet Count 242 K/mm3 (150-450); RBC Distribution Width CV 12.6 % (11.6-14.6); Red Blood Count 5.44 M/mm3 (4.2-5.4); White Blood Count 4.8 K/mm3 (4.4-11.0)
[2021-03-22 12:53] LABS: AST(SGOT) 20 U/L (15-37); Alanine Aminotransfer ALT/SGPT 33 U/L (13-56); Albumin, Serum 3.8 g/dL (3.2-5.0); Alkaline Phosphatase 48 U/L (45-117); Anion Gap 3 (5-15); BUN 19 mg/dL (7-18); CRP < 2.90 mg/L (0.0-3.0); Calcium,Total 9.7 mg/dL (8.5-10.1); Chloride 103 mmol/L (98-107); EST Glomerular Filtration Rate 65 mL/min (>60); Est Glom Filt Rate - Afr Amer 78 mL/min (>60); Globulin 3.9 g/dL (2.2-4.2); Glucose 115 mg/dL (74-106); Lipase 164 U/L (73-393); Protein, Total 7.7 g/dL (6.4-8.2); Sodium Level 138 mmol/L (136-145)
[2021-03-25 20:08] LABS: Endomysial Antibody IgA Negative (Negative)
[2021-03-25 20:41] LABS: Immunoglobulin A 121 mg/dL (64-422); t-Transglutaminase IgA <2 U/mL (0-3)
== END ==
PROVIDERS: PCP Family Medicine; Referring Provider Family Medicine; Visit Provider Family Medicine
DX: R19.7 Diarrhea, unspecified (principal)
CPT/HCPCS: 36415; 80053; 82784; 83516; 83690; 85025; 86140; 86255

== ENCOUNTER → 2021-03-29 07:25 | Outpatient (CLI) | payer MEDICARE, OTHER, SELFPAY ==
[2019-09-21 09:56] VITALS: BMI 35.9
--- NOTE | 2021-03-29 07:27 | CT_ITS ---
STUDY: CT ABDOMEN AND PELVIS WITH CONTRAST REASON FOR EXAM: Female, 76 years old. chronic diarrhea and now LLQ pain on exam RADIATION DOSAGE (If Supplied By Facility): CTDIvol = ( 20.42 ) mGy, DLP = ( 1366.19 ) mGycm TECHNIQUE: Transaxial images were obtained from the dome of the diaphragm to the symphysis pubis with oral contrast. IV 100mL [id number]-300 was administered. Sagittal and coronal images were reconstructed. Individualized dose optimization techniques were used for this CT. COMPARISON: None. FINDINGS: The visualized lung bases are unremarkable. The visualized portions of the heart are within normal limits. Normal liver. There is non-visualization of the gallbladder, which may be secondary to either contraction or a prior cholecystectomy. Normal spleen. Normal pancreas. Normal bilateral adrenal glands. No obstructive uropathy, multiple bilateral simple renal cysts. No specific follow-up needed. Normal visualized stomach. Normal small intestine. Retained stool noted throughout the colon. There are a few scattered diverticula but no CT evidence of acute diverticulitis. The appendix is visualized and appears normal. Appendix best seen on coronal recon images [id number] There is diffuse atherosclerotic calcification of the abdominal aorta, without a demonstrated aneurysm. Normal inferior vena cava. Normal retroperitoneum. Normal urinary bladder. Uterus is present, the endometrium cannot be accurately evaluated with CT. No suspicious adnexal mass or free fluid There is a fat-containing ventral hernia with the neck measuring 2.7 cm just to the right of midline. There are diffuse degenerative changes of the visualized lumbar spine, and pelvis. There is been previous interbody fusion between T12 and L1 and there is a grade 1 spondylolisthesis at L4-5. Replaced right hip joint free of complication CT/Abdomen/Pelvis WITH Contrast IMPRESSION: No suspicious solid organ abnormality, simple bilateral renal cysts, no specific follow-up needed Sigmoid diverticulosis, no CT evidence of acute diverticulitis. Normal appendix visualized Uterus is present the endometrium cannot be accurately evaluated with CT. Fat-containing ventral hernia Degenerative bony changes Electronically Signed: Silviano Arias MD at 8:01 EDT , Service support ,
== END ==
PROVIDERS: PCP Family Medicine; Referring Provider Family Medicine; Visit Provider Family Medicine
DX: R10.32 Left lower quadrant pain (principal)
CPT/HCPCS: 74177; Q9967

== ENCOUNTER 2021-05-02 05:12 | Day surgery (SDC) | payer MEDICARE, OTHER, SELFPAY ==
[2021-04-19 09:10] VITALS: BMI 33.6
--- NOTE | 2021-05-02 05:36 | HP.PCM_ITS ---
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: No Allergies No Known Allergies Allergy (Verified 04/19/21 09:14) Medications celecoxib 200 mg PO DAILY 11/17/18 [History Confirmed 04/19/21] hydrochlorothiazide 25 mg PO DAILY 11/17/18 [History Confirmed 04/19/21] lisinopril 20 mg PO DAILY 11/17/18 [History Confirmed 04/19/21] magnesium oxide 500 mg PO BID 11/17/18 [History Confirmed 04/19/21] omega-3 fatty acids-fish oil 1 ea PO TID 11/17/18 [History Confirmed 04/19/21] pyridoxine (vitamin B6) 200 mg PO BID 11/17/18 [History Confirmed 04/19/21] amlodipine 5 mg tablet 5 mg PO DAILY #90 tab 09/21/19 [History Confirmed 04/19/21] azelastine 205.5 mcg (0.15 %) nasal spray 2 spray INTRANASAL DAILY #30 ml 09/21/19 [History Confirmed 04/19/21] diclofenac sodium 1 % topical gel 2 g TOPICAL ONCE PRN #300 g 09/21/19 [History Confirmed 04/19/21] folic acid 400 mcg tablet 400 mcg PO DAILY 09/21/19 [History Confirmed 04/19/21] psyllium husk 3.4 gram/5.4 gram oral powder 1 tbsp PO DAILY PRN 09/21/19 [History Confirmed 04/19/21] PFSH Medical History Arthritis Back problem Depression Elevated bilirubin Fatigue Hypertension Lymphocytic colitis Numbness and tingling Osteoarthritis Surgical History History of carpal tunnel surgery Hx of cholecystectomy Hx of colonoscopy Hx of tonsillectomy Family History Mother Arthritis Hypertension Father Heart disease Hypertension Diabetes Brother Pancreatic cancer Diabetes Heart disease Hypertension Cancer skin cancer Social History Smoking Status: Never smoker second hand exposure: No alcohol intake: never substance use type: does not use caffeine: Yes what type of physical activity do you participate in: none frequency: does not exercise HPI HPI HPI: GARCIA MELGOZA, is a 76 F who presents to the office today for surgical consultation regarding 2 different items. The patient is referred by Dr. Fer Hough and a written copy my surgical consult and recommendations were returned to him. BUN is 76. She is retired from the [employer]. She is having trouble with postprandial epigastric pain. She has a known ventral incisional hernia at the umbilicus related to a remote laparoscopic cholecystectomy. She does not think that is the source of her discomfort but she is not sure. There is no particular foods that cause her increased grief. Of very significant pertinence so is that she has been having intractable diarrhea and fecal incontinence. No fever chills or sweats. No bright red blood per rectum or melena. As noted below March 29, [address] scan showing the ventral hernia and some diverticulosis. Her previous colonoscopy was done by myself December 19, 2014. Random biopsies were obtained at that time and lymphocytic colitis was identified but the patient was not symptomatic and so no treatment was pursued. Her current episode of diarrhea and incontinence started mid December 2020. She has had very slight weight loss but some of that intentional March 29, 2021 STUDY: CT ABDOMEN AND PELVIS WITH CONTRAST REASON FOR EXAM: Female, 76 years old. chronic diarrhea and now LLQ pain on exam RADIATION DOSAGE (If Supplied By Facility): CTDIvol = ( 20.42 ) mGy, DLP = ( 1366.19 ) mGycm TECHNIQUE: Transaxial images were obtained from the dome of the diaphragm to the symphysis pubis with oral contrast. IV 100mL [id number]-300 was administered. Sagittal and coronal images were reconstructed. Individualized dose optimization techniques were used for this CT. COMPARISON: None. FINDINGS: The visualized lung bases are unremarkable. The visualized portions of the heart are within normal limits. Normal liver. There is non-visualization of the gallbladder, which may be secondary to either contraction or a prior cholecystectomy. Normal spleen. Normal pancreas. Normal bilateral adrenal glands. No obstructive uropathy, multiple bilateral simple renal cysts. No specific follow-up needed. Normal visualized stomach. Normal small intestine. Retained stool noted throughout the colon. There are a few scattered diverticula but no CT evidence of acute diverticulitis. The appendix is visualized and appears normal. Appendix best seen on coronal recon images [id number] There is diffuse atherosclerotic calcification of the abdominal aorta, without a demonstrated aneurysm. Normal inferior vena cava. Normal retroperitoneum. Normal urinary bladder. Uterus is present, the endometrium cannot be accurately evaluated with CT. No suspicious adnexal mass or free fluid There is a fat-containing ventral hernia with the neck measuring 2.7 cm just to the right of midline. There are diffuse degenerative changes of the visualized lumbar spine, and pelvis. There is been previous interbody fusion between T12 and L1 and there is a grade 1 spondylolisthesis at L4-5. Replaced right hip joint free of complication CT/Abdomen/Pelvis WITH Contrast IMPRESSION: No suspicious solid organ abnormality, simple bilateral renal cysts, no specific follow-up needed Sigmoid diverticulosis, no CT evidence of acute diverticulitis. Normal appendix visualized Uterus is present the endometrium cannot be accurately evaluated with CT. Fat-containing ventral hernia Degenerative bony changes Electronically Signed: Silviano Arias MD at 8:01 EDT , Service support , ROS General General: Yes weight change; No appetite, fatigue, colon cancer or breast cancer HEENT HEENT: No difficulty swallowing, eye injury, eye surgery, swollen glands or hoarseness Endo Endocrine: No thyroid disease, diabetes mellitus, thyroid cancer, Hair loss, heat intolerance or cold intolerance Skin Skin: No rash or changing moles Musc Musculoskeletal: Yes back problems and arthritis; No rheumatoid arthritis, gout or joint pain Cardio Cardiovascular: Yes high blood pressure; No murmur, pacemaker, heart disease, atrial fibrillation, heart attack, heart stent, palpitations, shortness of breat with exertion or chest pain Psych Psychiatric: Yes depression; No anxiety or hearing voices Resp Respiratory: No shortness of breath, No sleep apnea, No cough, No COPD, No asthma, No emphysema and No wheezing Gastro Gastrointestinal: No abdominal pain, No nausea or vomiting, Yes diarrhea, No constipation, No blood in stool, No acid reflux, Yes hemorrhoids, No ulcers, No gallbladder problem and No black,tarry stools Waldemar Hematologic: No blood thinners, No blood disorders, No bleeding, No anemia and No blood clots Exam Const General: cooperative, comfortable and no acute distress Nutritional Appearance: average body habitus Orientation: awake [facility] Head: normal to inspection Chest Chest palpation & inspection: normal inspection of the chest Resp Effort & Inspection: normal respiratory effort Auscultation: clear to auscultation bilaterally Cardio Rate: regular rate Rhythm: regular rhythm GI Palpation: soft and no hepatosplenomegaly Auscultation: normal bowel sounds Musc Cervical Spine: normal cervical lordosis Skin General: no rashes or lesions noted Neuro General: patient alert and patient awake Extrem General: no calf tenderness bilaterally Psych Affect: normal affect COVID (Procedure Consent) Procedure Criteria Procedure Criteria: Yes Elective The surgeon/proceduralist and patient have discussed in detail the risk of exposure to and/or potential harm posed by the COVID-19 virus with having a surgery/procedure at this time versus the risk of delaying the surgery/procedure. It is not possible to know either the risk of delaying the surgery or procedure or chance of getting an infection with perfect accuracy, but a joint decision was made between the patient and the surgeon/proceduralist to proceed at this time with the scheduled surgery/procedure as indicated on the consent form. Assessment and Plan Assessment and Plan (1) Epigastric abdominal pain: Status: Acute (2) Ventral incisional hernia without obstruction or gangrene: Status: Acute (3) Diarrhea: Status: Acute Qualifiers: Diarrhea type: unspecified type Qualified Code(s): R19.7 - Diarrhea, unspecified Plan Details Additional Comments: Very pleasant 76-year-old female with postprandial epigastr ic pain. She has had a previous laparoscopic cholecystectomy. This discomfort is relatively new. She does have a ventral incisional hernia located to the umbilicus. She is not sure that this is contributing to her pain. Of great concern is intractable diarrhea with urgency so bad that she has incontinence. Previous colonoscopy December 2014 demonstrated lymphocytic colitis but she was not symptomatic since that time did not require treatment. Not clear whether this could be the same etiology. I propose for her a esophagogastroduodenoscopy with possible biopsy and evaluation of her epigastric pain. I propose for her a colonoscopy with possible biopsy or polypectomy as indicated. Consideration for random colonic biopsies certainly will be pursued. Pending the outcome of that evaluation I have instructed the patient that she is otherwise enjoying good health and if the diarrhea situation can be improve then perhaps she should consider pursuing ventral incisional herniorrhaphy. She will consider her treatment options and recontact me regarding that issue. I appreciate the ongoing opportunity of assisting with her surgical care Copy: Dr. Fer Arshad M.D., F.A.C.S. Coding Level of Care Code 07457 Diagnoses Epigastric abdominal pain R10.13 Ventral incisional hernia without obstruction or gangrene K43.2 Diarrhea R19.7 Diarrhea type: unspecified type I have re-examined the patient. There are no clinical changes since date of exam.
[2021-05-02 05:56] VITALS: BP 152/88; PULSE 66; RESP 16; TEMP 36.8; O2SAT 100; BMI 33.9
[2021-05-02] MEDS: Lactated Ringers 1,000 ML 100 ML IV (06:02)
--- NOTE | 2021-05-02 06:30 | EGD_PTH ---
PATIENT: GARCIA MELGOZA LOC: EN U#:[id number] AGE/SX: 76/F ROOM: RE05/02/[address]: Dr. Alex Arshad MD : 1945 BED: DIS: 05/02/2021 SPEC #: [id number] RECD: 05/02/21 08:40 STATUS: MARTHA RAIN #: [id number] JERMAINE: 05/02/21 06:[address]: Alex Arshad DEPT: SURGICAL PATHOLOGY RECD BY: Barby Castle ENTERED: 05/02/21 09:55 SP TYPE: EGD BIOPSY OT DR: Dr. Fer Hough MD Tissues: A - Duodenum, NOS B - Gastric mucous membrane C - Esophagus, NOS D - Esophagus, NOS E - COLON BIOPSY Procedures: Trichrome (control) Special Stain Group II Surgery Specimen Level IV HEADER OPERATION: [place], [place] PRE-OP DIAGNOSIS: Epigastric abdominal pain; ventral incisional hernia TISSUE SUBMITTED: A - Duodenum biopsy, B - Antrum biopsy for H. pylori and path, C - Distal esophagus biopsy, D - Mid esophagus biopsy, E - Random colonic biopsy MICROSCOPIC DIAGNOSIS A. Duodenum, biopsy: Fragments of duodenal mucosa, no pathologic diagnosis. B. Antral biopsy: Mild gastritis. See microscopic description and comment. C. Distal esophagus, biopsy: Fragments of squamous epithelium, no pathologic diagnosis. D. Mid esophagus, biopsy: A fragment of squamous epithelium, no pathologic diagnosis. E. Colon, random biopsy: Fragments of colonic mucosa with changes consistent with microscopic (lymphocytic) colitis. See comment. SJ:mike 05/03/2021 COMMENT B. The results of immunohistochemistry for Helicobacter pylori will be reported separately ([id number]). E. Trichrome stain with matched control is used in the evaluation of the specimen and do not any significant thickening of subepithelial collagen band. Case has been reviewed in consultation with Dr. Mohan who concurs with the above diagnosis. IDC:AM MICROSCOPIC DESCRIPTION Slides are reviewed. B. The specimen shows fragments of gastric mucosa with chronic inflammatory cell infiltrates in the lamina propria consisting of lymphocytes and plasma cells, consistent with mild chronic gastritis. Mucosal congestion is also present. GROSS DESCRIPTION A - Received in fixative is one container labeled with the patient's name and designated duodenal biopsy. The specimen consists of one irregular fragment of light doshi soft tissue that measures 0.3 x 0.2 x 0.1 cm. The specimen is totally submitted in one cassette. B - Received in fixative is one container labeled with the patient's name and designated antrum biopsy. The specimen consists of one irregular fragment of light doshi soft tissue that measures 0.3 x 0.2 x 0.1 cm. The specimen is totally submitted in one cassette. C - Received in fixative is one container labeled with the patient's name and designated distal esophagus biopsy. The specimen consists of multiple irregular fragments of light doshi soft tissue that in aggregate measure 1 x 0.2 x 0.1 cm. The specimen is totally submitted in one cassette. D - Received in fixative is one container labeled with the patient's name and designated mid esophagus biopsy. The specimen consists of two irregular fragments of light doshi soft tissue that in aggregate measure 0.4 x 0.2 x 0.1 cm. The specimen is totally submitted in one cassette. E - Received in fixative is one container labeled with the patient's name and designated random colonic biopsy. The specimen consists of multiple irregular fragments of light doshi soft tissue that in aggregate measure 2 x 0.5 x 0.1 cm. The specimen is totally submitted in one cassette. / SJ:rg 05/02/21 TC:4 CPT: 00550 x5, 12617
--- NOTE | 2021-05-02 06:30 | IMM_PTH ---
PATIENT: GARCIA MELGOZA LOC: EN U#:[id number] AGE/SX: 76/F ROOM: RE05/02/[address]: Dr. Alex Arshad MD : 1945 BED: DIS: 05/02/2021 SPEC #: [id number] RECD: 05/02/21 10:16 STATUS: MARTHA REKillian #: [id number] JERMAINE: 05/02/21 06:[address]: Alex Arshad DEPT: IMMUNOHISTOCHEMISTRY RECD BY: Cortney Obregon ENTERED: 05/02/21 10:20 SP TYPE: IMMUNO OTHR DR: Dr. Fer Hough MD Tissues: B - Stomach, NOS Procedures: H Pylori (initial) PHYSICIAN & INSTITUTION [place] [address] SPECIMEN INFORMATION: Tissue Source: B ? Antrum biopsy Clinical Info: Epigastric abdominal pain; ventral incisional hernia Specimen Number: [id number] CPT code: 60507 METHODOLOGY: Deparaffinized sections of prefer/formalin-fixed tissue or PAP/DQ stained slides are incubated with monoclonal/polyclonal antibodies/oligonucleotide probes. Localization is made via biotin free immunoperoxidase method. Appropriate controls are performed and reacted as expected. Results on target cell population are indicated in the following table: RESULTS: ANTIBODY / CLONE RESULT Block B H Pylori (polyclonal) negative These tests were developed and their performance characteristics determined by [facility]. They may not have been cleared or approved by the U.S. Food and Drug Administration. The FDA has determined that such clearance or approval is not necessary. INTERPRETATION: B. Antrum biopsy: Negative for Helicobacter pylori organisms. YOKASTA:mike 05/03/2021
[2021-05-02 07:01] VITALS: BP 108/61; BP 152/88; PULSE 62; RESP 16; TEMP 36.8; O2SAT 97
[2021-05-02 07:05] VITALS: BP 108/58; BP 152/88; PULSE 68; RESP 16; O2SAT 99
[2021-05-02 07:09] VITALS: BP 111/56; BP 152/88; PULSE 60; RESP 16; O2SAT 100
[2021-05-02 07:15] VITALS: BP 110/74; BP 152/88; PULSE 66; RESP 16; TEMP 36.8; O2SAT 100
[2021-05-02 07:45] VITALS: BP 152/88
--- NOTE | 2021-05-02 10:34 | OP.CCLET_ITS ---
05/02/2021 Fer Hough [address] [place] [address] Re : Upper GI endoscopy procedure for Denisa Guzman Dear Dr. Hough This procedure was performed on April. My impressions and recommendations are as follows: Impressions : - Normal mid esophagus. Biopsied. - Normal distal esophagus. Biopsied. - Small hiatal hernia. - Erythematous mucosa in the gastric body and antrum. Biopsied. - Normal examined duodenum. Biopsied. Recommendations : - Discharge patient to home. - Resume previous diet. - Continue present medications. - Telephone my office for pathology results in 1 week. Mild gastritis might correlate with patient's concerns of epigastric pain. She does not appear to be on any acid suppression medications. Will await biopsy pathology prior to making recommendations. My findings are described in the full procedure note, which is enclosed. If I can be of further assistance, please feel free to contact me at Doctor phone number(s): Work: . Sincerely, Alex Arshad MD 05/02/2021 7:00:27 AM This report has been signed electronically.
--- NOTE | 2021-05-02 10:34 | OP.CCLET_ITS ---
05/02/2021 Fer Hough [address] [place] [address] Re : Colonoscopy procedure for Denisa Guzman Dear Dr. Hough This procedure was performed on April. My impressions and recommendations are as follows: Impressions : - Hemorrhoids found on perianal exam. - Diverticulosis in the sigmoid colon. - The examination was otherwise normal. - Biopsies were taken with a cold forceps from the entire colon for evaluation of microscopic colitis. Recommendations : - Discharge patient to home. - Resume previous diet. - Continue present medications. - Repeat colonoscopy is not recommended due to current age (66 years or older) for screening purposes. - Telephone my office for pathology results in 1 week. My findings are described in the full procedure note, which is enclosed. If I can be of further assistance, please feel free to contact me at Doctor phone number(s): Work: . Sincerely, Alex Arshad MD 05/02/2021 7:03:05 AM This report has been signed electronically.
--- NOTE | 2021-05-02 10:34 | OP.EGD_ITS ---
Patient Name: Denisa Guzman Procedure Date: 05/02/2021 6:12 AM Date of : 1945 Age: 76 Procedure: Upper GI endoscopy Indications: Epigastric abdominal pain Providers: Alex Arshad MD Referring MD: Fer Hough Medicines: See the Anesthesia note for documentation of the administered medications Complications: No immediate complications. Procedure: Pre-Anesthesia Assessment: - Prior to the procedure, a History and Physical was performed, and patient medications and allergies were reviewed. The patient's tolerance of previous anesthesia was also reviewed. The risks and benefits of the procedure and the sedation options and risks were discussed with the patient. All questions were answered, and informed consent was obtained. Prior Anticoagulants: The patient has taken no previous anticoagulant or antiplatelet agents. ASA Grade Assessment: II - A patient with mild systemic disease. After reviewing the risks and benefits, the patient was deemed in satisfactory condition to undergo the procedure. After obtaining informed consent, the endoscope was passed under direct vision. Throughout the procedure, the patient's blood pressure, pulse, and oxygen saturations were monitored continuously. The gastroscope was introduced through the mouth, and advanced to the second part of duodenum. The upper GI endoscopy was accomplished without difficulty. The patient tolerated the procedure well. Scope In: 6:35:17 AM Scope Out: 6:40:31 AM Total Procedure Duration Time 0 hours 5 minutes 14 seconds Findings: The mid esophagus was normal. Biopsies were taken with a cold forceps for histology. The distal esophagus was normal. Biopsies were taken with a cold forceps for histology. A small hiatal hernia was present. Diffuse mildly erythematous mucosa without bleeding was found in the gastric body and in the gastric antrum. Biopsies were taken with a cold forceps for histology. The examined duodenum was normal. Biopsies were taken with a cold forceps for histology. Impression: - Normal mid esophagus. Biopsied. - Normal distal esophagus. Biopsied. - Small hiatal hernia. - Erythematous mucosa in the gastric body and antrum. Biopsied. - Normal examined duodenum. Biopsied. Recommendation: - Discharge patient to home. - Resume previous diet. - Continue present medications. - Telephone my office for pathology results in 1 week. Mild gastritis might correlate with patient's concerns of epigastric pain. She does not appear to be on any acid suppression medications. Will await biopsy pathology prior to making recommendations. Procedure Code(s): --- Professional --- 61011, Esophagogastroduodenoscopy, flexible, transoral; with biopsy, single or multiple Diagnosis Code(s): --- Professional --- K44.9, Diaphragmatic hernia without obstruction or gangrene K31.89, Other diseases of stomach and duodenum R10.13, Epigastric pain CPT copyright 2017 [employer]. All rights reserved. The codes documented in this report are preliminary and upon beef splitter review may be revised to meet current compliance requirements. Alex Arshad MD 05/02/2021 7:00:27 AM This report has been signed electronically. Number of Addenda: 0 Note Initiated On: 05/02/2021 6:12 AM
--- NOTE | 2021-05-02 10:34 | OP.COLON_ITS ---
Patient Name: Denisa Guzman Procedure Date: 05/02/2021 6:42 AM Date of : 1945 Age: 76 Procedure: Colonoscopy Indications: Chronic diarrhea Providers: Alex Arshad MD Referring MD: Fer Hough Medicines: See the Anesthesia note for documentation of the administered medications Patient Profile: Last Colonoscopy: December 2014. Complications: No immediate complications. Procedure: Pre-Anesthesia Assessment: - Prior to the procedure, a History and Physical was performed, and patient medications and allergies were reviewed. The patient's tolerance of previous anesthesia was also reviewed. The risks and benefits of the procedure and the sedation options and risks were discussed with the patient. All questions were answered, and informed consent was obtained. Prior Anticoagulants: The patient has taken no previous anticoagulant or antiplatelet agents. ASA Grade Assessment: II - A patient with mild systemic disease. After reviewing the risks and benefits, the patient was deemed in satisfactory condition to undergo the procedure. After I obtained informed consent, the scope was passed under direct vision. Throughout the procedure, the patient's blood pressure, pulse, and oxygen saturations were monitored continuously. The colonoscope was introduced through the anus and advanced to the cecum, identified by appendiceal orifice and ileocecal valve. The colonoscopy was performed without difficulty. The patient tolerated the procedure well. The quality of the bowel preparation was good. The ileocecal valve and the appendiceal orifice were photographed. Scope In: 6:44:24 AM Scope Withdrawal Time 0 hours 6 minutes 41 seconds Scope Out: 6:55:14 AM Total Procedure Duration Time 0 hours 10 minutes 50 seconds Findings: Hemorrhoids were found on perianal exam. A few diverticula were found in the sigmoid colon. The exam was otherwise without abnormality. Biopsies for histology were taken with a cold forceps from the entire colon for evaluation of microscopic colitis. Impression: - Hemorrhoids found on perianal exam. - Diverticulosis in the sigmoid colon. - The examination was otherwise normal. - Biopsies were taken with a cold forceps from the entire colon for evaluation of microscopic colitis. Recommendation: - Discharge patient to home. - Resume previous diet. - Continue present medications. - Repeat colonoscopy is not recommended due to current age (66 years or older) for screening purposes. - Telephone my office for pathology results in 1 week. Procedure Code(s): --- Professional --- 14258, Colonoscopy, flexible; with biopsy, single or multiple Diagnosis Code(s): --- Professional --- K64.9, Unspecified hemorrhoids K52.9, Noninfective gastroenteritis and colitis, unspecified K57.30, Diverticulosis of large intestine without perforation or abscess without bleeding CPT copyright 2017 [employer]. All rights reserved. The codes documented in this report are preliminary and upon recovery analyst review may be revised to meet current compliance requirements. Alex Arshad MD 05/02/2021 7:03:05 AM This report has been signed electronically. Number of Addenda: 0 Note Initiated On: 05/02/2021 6:42 AM
== END 2021-05-02 07:45 ==
LOC: EN 05:12 → AC 05:17
PROVIDERS: PCP Family Medicine; Referring Provider Family Medicine; Visit Provider Surgery
PROC: 0DJD8ZZ Inspection of Lower Intestinal Tract, Via Natural or Artificial Opening Endoscopic (ICD-10-PCS; CPT 45378; principal; 2021-05-02 06:25)
DX: K44.9 Diaphragmatic hernia without obstruction or gangrene (principal); K31.89 Other diseases of stomach and duodenum; K43.2 Incisional hernia without obstruction or gangrene; R10.13 Epigastric pain; K64.9 Unspecified hemorrhoids; K52.9 Noninfective gastroenteritis and colitis, unspecified; K57.30 Diverticulosis of large intestine without perforation or abscess without bleeding; I10 Essential (primary) hypertension; Z90.49 Acquired absence of other specified parts of digestive tract
CPT/HCPCS: 43239; 45380; 88305; 88313; 88342; J7120; J2405

== ENCOUNTER → 2021-07-10 07:54 | Outpatient (CLI) | payer MEDICARE, OTHER, SELFPAY ==
[2021-07-10 10:14] LABS: Hematocrit 47.8 % (37-47); Mean Corp Hgb Conc 33.5 g/dL (32-36); Mean Corpuscular Hgb 30.4 pg (27.0-32.0); Mean Corpuscular Volume 90.7 fL (81-99); Mean Platelet Vol. 10.5 fl (6.2-12.0); Platelet Count 228 K/mm3 (150-450); RBC Distribution Width CV 12.6 % (11.6-14.6); RBC Distribution Width SD 41.9 fl (35.1-43.9); Red Blood Count 5.27 M/mm3 (4.2-5.4)
[2021-07-10 10:34] LABS: International Normalized Ratio 0.9; Prothrombin Time (Protime)PT. 11.9 SECONDS (11.7-14.9)
[2021-07-10 10:41] LABS: AST(SGOT) 18 U/L (15-37); Alanine Aminotransfer ALT/SGPT 32 U/L (13-56); Albumin, Serum 3.7 g/dL (3.2-5.0); Alkaline Phosphatase 49 U/L (45-117); Anion Gap 3 (5-15); BUN 21 mg/dL (7-18); BUN/Creat Ratio 23.9 RATIO (10-20); Calcium,Total 9.3 mg/dL (8.5-10.1); Chloride 105 mmol/L (98-107); Creatinine, Serum 0.88 mg/dL (0.55-1.02); EST Glomerular Filtration Rate 67 mL/min (>60); Est Glom Filt Rate - Afr Amer 81 mL/min (>60); Globulin 3.7 g/dL (2.2-4.2); Glucose 112 mg/dL (74-106); Protein, Total 7.4 g/dL (6.4-8.2); Sodium Level 138 mmol/L (136-145)
== END ==
PROVIDERS: PCP Family Medicine
DX: K76.0 Fatty (change of) liver, not elsewhere classified (principal)
CPT/HCPCS: 36415; 80053; 85027; 85610

== ENCOUNTER → 2021-08-22 16:42 | Outpatient (CLI) | payer MEDICARE, OTHER, SELFPAY | PROVIDERS: PCP Family Medicine; Referring Provider Family Medicine; Visit Provider Family Medicine | DX: U07.1 COVID-19 (principal); Z11.52 Encounter for screening for COVID-19 | CPT/HCPCS: 87635; U0005; U0003 ==

== ENCOUNTER 2021-12-16 08:32 | Outpatient (CLI) | payer MEDICARE, SELFPAY ==
[2021-12-16 10:09] LABS: Absolute Lymphocyte Count 1.84 X10^3/uL (0.83-4.51); Absolute Neutrophil Count 2.5 X10^3/uL (2.0-7.7); Basophil# 0.04 X10^3/uL; Basophil% 0.8 % (0-1); Eosinophil# 0.26 X10^3/uL; Eosinophils% 5.1 % (0-5); Hematocrit 46.8 % (37-47); Hemoglobin 15.3 g/dL (12.0-15.0); Lymphocyte # 1.84 X10^3/ul (0.83-4.51); Lymphocyte % 36.3 % (19-41); Mean Corp Hgb Conc 32.7 g/dL (32-36); Mean Corpuscular Hgb 29.9 pg (27.0-32.0); Mean Corpuscular Volume 91.4 fL (81-99); Mean Platelet Vol. 10.4 fl (6.2-12.0); Monocyte# 0.37 X10^3/uL; Monocyte% 7.3 % (0-10); NRBC Flagged by Analyzer 0 % (0-5); Neutrophil # 2.54 X10^3/uL (2.7-7.7); Neutrophil % 50.1 % (47-70); Platelet Count 224 K/mm3 (150-450); RBC Distribution Width CV 12.7 % (11.6-14.6); RBC Distribution Width SD 42.6 fl (35.1-43.9); Red Blood Count 5.12 M/mm3 (4.2-5.4); White Blood Count 5.1 K/mm3 (4.4-11.0)
[2021-12-16 10:31] LABS: Microalbumin,Random Urine 68.3 mg/L (NO RANGE EST.); Microalbumin:Creatinine Ratio 59.4 mg/g CRE (<30 mg/g CRE)
[2021-12-16 10:32] LABS: Hemoglobin A1c 5.8 % (3.8-5.6)
[2021-12-16 10:47] LABS: AST(SGOT) 17 U/L (15-37); Alanine Aminotransfer ALT/SGPT 24 U/L (13-56); Albumin, Serum 3.7 g/dL (3.2-5.0); Alkaline Phosphatase 48 U/L (45-117); Anion Gap 4 (5-15); BUN 24 mg/dL (7-18); BUN/Creat Ratio 22.9 RATIO (10-20); CRP < 2.90 mg/L (0.0-3.0); Calcium,Total 9.2 mg/dL (8.5-10.1); Chloride 105 mmol/L (98-107); Cholesterol 217 mg/dL (200); Creatinine, Serum 1.05 mg/dL (0.55-1.02); EST Glomerular Filtration Rate 54 mL/min (>60); Est Glom Filt Rate - Afr Amer 66 mL/min (>60); Globulin 3.7 g/dL (2.2-4.2); Glucose 118 mg/dL (74-106); High Density Lipoprotein 71 mg/dL; Protein, Total 7.4 g/dL (6.4-8.2); Sodium Level 139 mmol/L (136-145); Thyroid Stim Hormone (TSH) 3.65 uIU/mL (0.358-3.74); Triglycerides 111 mg/dL; Very Low Density Lipoprotein 22 mg/dL (5-40)
== END 2021-12-16 23:59 | disposition home or self-care (01) ==
LOC: MTLAB 08:34
PROVIDERS: PCP Family Medicine; Referring Provider Family Medicine; Visit Provider Family Medicine
DX: I10 Essential (primary) hypertension (principal); K52.832 Lymphocytic colitis; E66.9 Obesity, unspecified; Z68.35 Body mass index [BMI] 35.0-35.9, adult
CPT/HCPCS: 36415; 80053; 80061; 82043; 82570; 83036; 84443; 85025; 86140

== ENCOUNTER 2021-12-24 15:19 | Outpatient (CLI) | payer MEDICARE, SELFPAY ==
--- NOTE | 2021-12-24 15:25 | RAD_ITS ---
STUDY: X-RAY - RIGHT HAND, ATTENTION SECOND FINGER REASON FOR EXAM: Female, 76 years old. Mucus cyst right index finger with nail grooving. TECHNIQUE: 3 view(s) of the finger were obtained. COMPARISON: None. FINDINGS: Osteopenia. Mild arthrosis of the second MCP and IP joints. Severe arthrosis of the DIP joint of the second digit with marked osteophyte formation. Soft tissue swelling at the DIP joint. RAD/Finger(s) Min 2 Views IMPRESSION: Osteopenia with osteoarthritic changes most marked at the DIP joint. No acute abnormality. Electronically Signed: Tyrese Jj MD at 9:36 EST ,
== END 2021-12-24 23:59 | disposition home or self-care (01) ==
LOC: RAD 15:21
PROVIDERS: PCP Family Medicine; Referring Provider Family Medicine; Visit Provider Family Medicine
DX: M67.441 Ganglion, right hand (principal); L60.8 Other nail disorders; M15.1 Heberden's nodes (with arthropathy)
CPT/HCPCS: 73140

== ENCOUNTER 2022-02-17 08:37 | Outpatient (CLI) | payer MEDICARE, SELFPAY | END 2022-02-17 23:59 | disposition home or self-care (01) | LOC: SDC 08:38 | PROVIDERS: PCP Family Medicine; Visit Provider Surgery | DX: Z01.812 Encounter for preprocedural laboratory examination (principal) ==

== ENCOUNTER → 2022-04-12 | Outpatient (CLI) | payer MEDICARE, SELFPAY ==
[2022-04-16 20:57] LABS: Pancreatic Elastase, Fecal 56 (>200)
[2022-04-24 21:39] LABS: Calprotectin, Stool 317 ug/g (0-120); pH, Stool 6.5 (7.0-7.5)
== END | disposition home or self-care (01) ==
LOC: LABSPEC 09:01
PROVIDERS: PCP Family Medicine; Visit Provider Family Medicine
DX: K86.89 Other specified diseases of pancreas (principal); R19.7 Diarrhea, unspecified
CPT/HCPCS: 82653; 83986; 83993

== ENCOUNTER → 2022-07-01 | Outpatient (CLI) | payer MEDICARE, SELFPAY ==
[2022-07-01 10:30] LABS: Hematocrit 45.8 % (37-47); Hemoglobin 15.7 g/dL (12.0-15.0); Mean Corp Hgb Conc 34.3 g/dL (32-36); Mean Corpuscular Hgb 31.2 pg (27.0-32.0); Mean Corpuscular Volume 91.1 fL (81-99); Mean Platelet Vol. 10.7 fl (6.2-12.0); Platelet Count 221 K/mm3 (150-450); RBC Distribution Width CV 12.8 % (11.6-14.6); RBC Distribution Width SD 42.4 fl (35.1-43.9); Red Blood Count 5.03 M/mm3 (4.2-5.4); White Blood Count 4.4 K/mm3 (4.4-11.0)
[2022-07-01 10:55] LABS: ALB/GLOB Ratio 1.1 RATIO (0.9-2.4); AST(SGOT) 18 U/L (15-37); Alanine Aminotransfer ALT/SGPT 22 U/L (13-56); Albumin, Serum 3.7 g/dL (3.2-5.0); Alkaline Phosphatase 47 U/L (45-117); Anion Gap 4 (5-15); BUN 22 mg/dL (7-18); BUN/Creat Ratio 24.6 RATIO (10-20); Calcium,Total 9.5 mg/dL (8.5-10.1); Chloride 107 mmol/L (98-107); Cholesterol 203 mg/dL (200); Creatinine, Serum 0.89 mg/dL (0.55-1.02); EST Glomerular Filtration Rate 65 mL/min (>60); Est Glom Filt Rate - Afr Amer 79 mL/min (>60); Globulin 3.5 g/dL (2.2-4.2); Glucose 117 mg/dL (74-106); High Density Lipoprotein 70 mg/dL; Potassium 3.9 mmol/L (3.5-5.1); Protein, Total 7.2 g/dL (6.4-8.2); Sodium Level 142 mmol/L (136-145); Triglycerides 122 mg/dL; Very Low Density Lipoprotein 24 mg/dL (5-40)
[2022-07-01 10:57] LABS: Hemoglobin A1c 5.8 % (3.8-5.6)
[2022-07-01 11:03] LABS: Microalbumin,Random Urine 37.1 mg/L (NO RANGE EST.); Microalbumin:Creatinine Ratio 27.3 mg/g CRE (<30 mg/g CRE)
== END | disposition home or self-care (01) ==
LOC: MTLAB 07:43
PROVIDERS: PCP Family Medicine; Referring Provider Family Medicine; Visit Provider Family Medicine
DX: E88.81 Metabolic syndrome and other insulin resistance (principal); I10 Essential (primary) hypertension; K76.0 Fatty (change of) liver, not elsewhere classified
CPT/HCPCS: 36415; 80053; 80061; 82043; 82570; 83036; 85027

== ENCOUNTER → 2022-08-04 | Outpatient (CLI) | payer MEDICARE, SELFPAY ==
--- NOTE | 2022-08-04 08:00 | US_ITS ---
STUDY: ABDOMINAL ULTRASOUND - ELASTOGRAPHY REASON FOR VISIT: Female, 77 years old. Fatty infiltration of the liver. Elevated bilirubin. TECHNIQUE: Liver stiffness measurements were obtained on a [employer]ia RS 85 ultrasound machine using a CA 1-7 probe following the SRU guidelines. 3 measurements were obtained using a 2-D-SWE method. The IQR/M was 18% suggesting a quality data set. TECHNICAL QUALITY: Adequate. COMPARISON: Comparison is made with prior study done earlier in the day. FINDINGS: Liver: Fatty infiltration of the liver. Median liver stiffness measured 10 kPa. US/Elastography Parenchyma/Organ IMPRESSION: Liver stiffness measures 10 kPa compatible with F2-F3 (Mild to moderate liver fibrosis) Metavir score. Electronically Signed: Ventura Winn MD at 9:36 EDT ,
--- NOTE | 2022-08-04 08:00 | US_ITS ---
STUDY: ABDOMINAL ULTRASOUND REASON FOR EXAM: Female, 77 years old. ELEVATED BILI . Prior cholecystectomy. TECHNIQUE: Transabdominal ultrasound was performed with real-time and static barry scale imaging. TECHNICAL QUALITY: Adequate. COMPARISON: Comparison is made with prior CT scan of the abdomen and pelvis dated 03/29/2021. FINDINGS: Liver: The liver measures 15.8 cm. There is increased echogenicity consistent with fatty infiltration. The bile ducts are within normal limits. There is hepatic color flow. The direction of portal flow is hepatopetal. There is no demonstrated mass lesion. Portal vein measurement: Gallbladder: The patient is status post cholecystectomy. Common Bile Duct (C.B.D.): The common bile duct measures 5 mm. Pancreas: Normal size of the head, body and tail of the pancreas. There is increased echogenicity of the pancreas. There is no demonstrated pancreatic mass or cyst. Spleen: Normal size of the spleen. The spleen measures 9.3 cm x 3.3 cm x 3.1 cm. Right Kidney: Normal size of the right kidney. The right kidney measures 11.3 cm x 7.5 cm x 5.2 cm. Normal renal cortex. The right cortex measures 1.7 cm. Multiple cysts are seen in the kidney. The largest cyst measures 6 cm x 5.5 cm x 4.5 cm. There is no right hydronephrosis. Left Kidney: Normal size of the left kidney. The left kidney measures 10.6 cm x 5.4 cm x 5.4 cm. Normal renal cortex. The left cortex measures 1.4 cm. There is no demonstrated renal mass or cyst. There is no left hydronephrosis. Aorta: Unremarkable I.V.C.: The IVC is patent. There is no ascites. US/Abdomen Complete IMPRESSION: Fatty infiltration of the liver. Status post cholecystectomy. Right renal cysts. Electronically Signed: Ventura Winn MD at 9:35 EDT ,
== END | disposition home or self-care (01) ==
PROVIDERS: PCP Family Medicine; Referring Provider Family Medicine; Visit Provider Family Medicine
DX: R17 Unspecified jaundice (principal)
CPT/HCPCS: 76700; 76981

== ENCOUNTER 2022-08-20 05:42 | Day surgery (SDC) | payer MEDICARE, SELFPAY ==
--- NOTE | 2022-08-19 23:39 | PCM.HP.BLA ---
History and Physical Date of Admission: 08/20/22 HISTORY OF PRESENT ILLNESS 77 year old woman presents with a soft tissue mass at eponychial fold right index finger that she has had for at least a year.? She has poked a needle in the mass a couple of times with some clear gelatinous drainage consistent with a ganglion (mucous) cyst of the right index finger.? It is on the radial side.? She is right hand dominant.? It has enlarged over the last several months.? She has evidence of Heberden's nodes from her arthritis and she thought it was related to her arthritis which explains some of the delay.? When the mass starting putting pressure on the nail bed complex growth center, she developed some nail grooving, and it's the grooving that was the motivating reason for today's visit.? She denies fever.? She denies trauma.? She denies any trouble with range of motion of her right hand and fingers. She had an x-ray done of the right hand on 12/24/21. It showed osteopenia. Mild arthrosis of the second MCP and IP joints. Severe arthrosis of the DIP joint of the second digit with marked osteophyte formation. Soft tissue swelling at the DIP joint. She presents at this time for further evaluation and treatment. 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) cholecystectomy colonoscopy tonsillectomy ALLERGIES No Known Allergies MEDICATIONS celecoxib hydrochlorothiazide lisinopril magnesium oxide omega-3 fatty acids-fish oil pyridoxine (vitamin B6) amlodipine folic acid cholecalciferol (vitamin D3) [Vitamin D3] famotidine [id number]-qszvk-[id number] 2-C-D3-silva [Wxcmxfry-Hqylsj-YYB with vit D] turmeric root extract FAMILY HISTORY Mother - Arthritis, Hypertension Father - Heart disease, Hypertension, Diabetes, Angina at rest Brother - Pancreatic cancer, Diabetes, Heart disease, Hypertension, Skin cancer Brother - Diabetes, Hypertension SOCIAL HISTORY Smoking Status:? Never smoker second hand exposure:? No alcohol intake:? never substance use type:? does not use REVIEW OF SYSTEMS General - Denies fever and weight loss.? Has fatigue. Eyes - Has cataracts.? Denies glaucoma. ENT - Denies nasal congestion and sore throat.? Has chronic sinus problems. Endocrine - Denies excessive thirst and urination. Skin - Denies skin cancer.? Has ulcerated enlarging soft tissue mass right index finger at the eponychial fold.? Musculoskeletal - Has joint pain, joint stiffness, weakness of muscles and joints, back pain, and arthritis.? Has Heberden's nodes involving the DIP joints. Neuro - Denies headaches. Cardiovascular - Denies chest pain, fatigue, and shortness of breath with exertion. Psych - Denies anxiety.? Has depression. Respiratory - Denies chronic cough and shortness of breath. Gastrointestinal - Denies nausea, vomiting, diarrhea, and constipation. Hematologic - Denies abnormal bruising and bleeding. Genitourinary - Denies hematuria and urinary frequency. PHYSICAL EXAMINATION General - Alert and Oriented. HEENT - PERRL. EOMI.? Throat is clear.? No suspicious lesions noted. Neck - Supple and nontender.? No cervical adenopathy.? No suspicious lesions noted. Lungs - Clear to auscultation. Heart - Regular rate and rhythm. Abdomen - Soft and nondistended. Extremities - FROM. No axillary adenopathy.? Radial pulses are palpable.? Has Heberden's nodes involving the DIP joints.? Patient is right hand dominant.? On the right index finger is a soft tissue mass on the radial aspect at the eponychial fold.? Measures 6 mm.? Has some ulceration.? No exposed bone,? No exposed tendon.? Mild tenderness to palpation.? Has nail grooving on the radial aspect of right index finger nail which is secondary to pressure from the growth of the soft tissue mass. No other suspicious lesions noted. Neuro - CN II-XII grossly intact. Psych - Normal mood and affect. ASSESSMENT 1.? 6 mm ulcerated soft tissue mass (consistent with a mucous cyst)? radial aspect right index finger at eponychial fold. 2.? Nail grooving radial aspect right index finger nail. 3.? Heberden's nodes on the dorsal DIP joint right index finger.? Where the mass is located, there is evidence of distal nail grooving from the pressure on the nail growth center. PLAN Recommend excision of this ulcerated mass and send it to Pathology for analysis to rule out carcinoma.? Because of the location of the wound at the eponychial fold area, and since there will exposed bone and exposed tendon after the excision, it is hard to put a skin graft over exposed bone and tendon.? Sometimes these masses travel underneath the extensor tendon and to the other side (ulnar side).? It is important to look very thoroughly since leaving even a small sliver behind can lead to recurrence of the symptomatology.? Reconstruction will be with a dorsal skin advancement flap.? This entails excising the mass in a horizontal direction to encompass the eponychial fold.? A vertical incision will be made down the finger toward the MP joint and the skin flap elevated at the level of the tendon sheath.? It should be able to advance into the defect and sutured.? The raw edge of the skin flap will help create a new eponychial fold.? Once this mass is removed, the nail grooving should improve and possibly reversed to some degree.? Any permanent damage to the nail growth center and the scar tissue will remain.? Sometimes a nail bed graft may be useful if there is chronic scarring on the nail bed.? If there is some difficulty in closing the skin flap because of the presence of the Heberdens's nodes, then they can be reduced it if means easier closure and safer as there will be less tension on the suture line. Preoperatively she had an X-ray of the right index finger on 12/24/21. It showed osteopenia. Mild arthrosis of the second MCP and IP joints. Severe arthrosis of the DIP joint of the second digit with marked osteophyte formation. Soft tissue swelling at the DIP joint. These osteophytes and bony spurs at the DIP joint would need to be excised to aid in the healing process and minimize recurrence. After surgery, may set her up with OT for range of motion exercises, strengthening, and edema management if stiffness and swelling persist postoperatively. Patient was informed of the risks and complications of the procedure including alternatives to surgery.? These were discussed with the patient personally.? Patient voices understanding and wishes to proceed. Some of the risks and complications were included in a form from the [place] [employer]. Some of the risks and complications that were discussed included but were not inclusive of failure to diagnose including symptom relief, pain, infection, numbness, stiffness, loss of digit, RSD (CRPS), need for further surgery, contracture, and wound healing problems.
--- NOTE | 2022-08-20 | CYST_PTH ---
PATIENT: GARCIA MELGOZA LOC: [facility] [place][id number] AGE/SX: 77/F ROOM: RE08/20/[address]: Dr. Harris Lazar MD : 1945 BED: DIS: 08/20/2022 SPEC #: [id number] RECD: 08/20/22 13:27 STATUS: MARTHA REQ #: [id number] JERMAINE: 08/20/22 00:[address]: Harris Lazar DEPT: SURGICAL PATHOLOGY RECD BY: Semaj Gar ENTERED: 08/20/22 13:27 SP TYPE: Cyst OTHR DR: Dr. Fer Hough MD Tissues: CYST Procedures: Decalcification bone/plaque Surgery Specimen Level IV HEADER OPERATION: Excision ulcerated mucus cyst right index finger, radial aspect PRE-OP DIAGNOSIS: Ulcerated mucus cyst right index finger TISSUE SUBMITTED: Mucus cyst right index finger MICROSCOPIC DIAGNOSIS Cyst of right index finger, biopsy: Fragments of bone and cartilage with fibrinoid/degenerative change. Skin with no pathologic change. AM:mike 08/25/2022 COMMENT The findings are consistent with mucous cyst. Clinical correlation is suggested. Case has been reviewed in consultation with Dr. Bobo who concurs with the above diagnosis. IDC:YOKASTA MICROSCOPIC DESCRIPTION Slides are reviewed. GROSS DESCRIPTION Received in fixative is one container labeled with the patient's name and designated bone plus mucus cyst right index finger. The specimen consists of multiple pieces of skin, soft tissue and bone that in aggregate measure 2 x 1 x 0.3 cm. The entire specimen is submitted in one cassette after decalcification. / YOKASTA:mike 08/20/2022 TC:5 CPT: 65230, 81656
[2022-08-20] MEDS: Lactated Ringers 1,000 ML 15 ML IV (06:15)
[2022-08-20 06:31] VITALS: BP 148/61; PULSE 67; RESP 17; TEMP 36.9; O2SAT 97; BMI 31.6
[2022-08-20] MEDS: Cefazolin 2 GM in 0.9% Normal Saline 100 ML IV (07:34)
[2022-08-20] MEDS: Lidocaine 1% (30 ml sdv) 30 ML Vial (07:49)
[2022-08-20 08:50] VITALS: BP 114/44; BP 148/61; PULSE 76; RESP 14; TEMP 36.6; O2SAT 96
[2022-08-20 08:55] VITALS: BP 115/55; BP 148/61; PULSE 73; RESP 16; O2SAT 95
[2022-08-20 09:00] VITALS: BP 111/56; BP 148/61; PULSE 71; RESP 16; O2SAT 96
[2022-08-20 09:05] VITALS: BP 121/54; BP 148/61; PULSE 64; RESP 16; TEMP 36.8; O2SAT 98
--- NOTE | 2022-08-20 09:20 | PCM.OPRPT ---
Problems Associated Problem List Diagnoses (1) Ganglion cyst of finger of right hand: (2) Acquired deformity of nail of finger: (3) Heberden's nodes of both hands: Report of Operation Date of Procedure: 08/20/22 Pre-Operative Diagnosis: 1. 6 mm ulcerated soft tissue mass (consistent with a mucous cyst) radial aspect right index finger at eponychial fold. 2. Nail grooving radial aspect right index finger nail. 3. Heberden's nodes on the dorsal DIP joint right index finger. Where the mass is located, there is evidence of distal nail grooving from the pressure on the nail growth center. Post-Operative Diagnosis: Same. Surgery/Procedure Performed:: Excision 6 mm ulcerated mucous cyst radial aspect right index finger near eponychial fold with dorsal advancement skin flap reconstruction (6 cm2). Description of Surgical Findings:: 77 year old woman presents with a soft tissue mass at eponychial fold right index finger that she has had for at least a year.? She has poked a needle in the mass a couple of times with some clear gelatinous drainage consistent with a ganglion (mucous) cyst of the right index finger.? It is on the radial side.? She is right hand dominant.? It has enlarged over the last several months.? She has evidence of Heberden's nodes from her arthritis and she thought it was related to her arthritis which explains some of the delay.? When the mass starting putting pressure on the nail bed complex growth center, she developed some nail grooving, and it's the grooving that was the motivating reason for today's visit.? She denies fever.? She denies trauma.? She denies any trouble with range of motion of her right hand and fingers.? She had an x-ray done of the right hand on 12/24/21.? It showed osteopenia. Mild arthrosis of the second MCP and IP joints.? Severe arthrosis of the DIP joint of the second digit with marked osteophyte formation.? Soft tissue swelling at the DIP joint. She presents at this time for further evaluation and treatment. Patient was informed of the risks and complications of the procedure including alternatives to surgery. These were discussed with the patient personally. Patient voices understanding and wishes to proceed. Some of the risks and complications were included in a form from the [place] [employer]. Some of the risks and complications that were discussed included but were not inclusive of failure to diagnose including symptom relief, pain, infection, numbness, stiffness, loss of digit, RSD (CRPS), need for further surgery, contracture, and wound healing problems. Total tourniquet time - 39 minutes. Surgeon: Harris Lazar adjunct art history instructor: None Type of Anesthesia: Local MAC (Xylocaine digital metacarpal block and IV sedation) Anesthesiologist: Mac Garcia MD and Tyrese Mead CRNA. Specimen's removed: Ulcerated mucous cyst right index finger with underlying bone to Pathology. Drains: None. Estimated Blood Loss (mL): 2. Description of Procedure: Patient was taken to OR in supine position and was given IV sedation. The right hand was prepped and draped in the usual fashion. SCD's were placed for DVT prophylaxis. Perioperative antibiotics were given intravenously. Using Xylocaine, a digital metacarpal block was placed at the base of the right index finger. After waiting 5 minutes for the anesthetic to take effect, a digital tourniquet was placed. Under loupe magnification, I made a horizontal incision to over the mass to expose the mass. The overlying skin was thin and scarred from previous ulceration. I made a circular incision to encompass the mass as I dissected down to the bone. The sac was dissected out and removed with the overlying skin. I explored underneath the extensor tendon that remained intact. The ulnar side of the finger showed no evidence of a continuation of the mucous cyst. There was a large osteophyte present that was sharply excised using rongeurs. By opening up the joint using the rongeurs, it minimizes recurrence of the mucous cyst. There was not enough skin to close the wound primarily. So I designed a dorsal skin flap that would be based on the ulnar vasculature. I made a vertical incision down the dorsal radial aspect of the finger past the PIP joint crease. I extended the incision horizontally toward the ulnar side of the finger. I dissected the dorsal skin flap off the underlying extensor tendon. When I dissected just past the PIP joint crease, I was able to advance the dorsal skin flap distally to close the wound defect. The soft tissue and bone was sent to Pathology for analysis to rule out carcinoma. The wound was irrigated with saline. I then started to close the wound after advancing the dorsal skin flap with 5-0 Monocryl interrupted sutures for the deep dermis and subcutaneous tissue. The skin was approximated with 5-0 Prolene simple interrupted and vertical mattress interrupted sutures. The tourniquet was released after 39 minutes while I was closing the skin. No active bleeding noted. Some oozing edges that were controlled with gauze compression and 5-0 Prolene sutures. The skin flap was pink and viable during the repair of the dorsal wound right index finger. Antibiotic ointment was applied to the suture line followed by Xeroform gauze and 2x2 gauze followed by a Kerlix compression gauze. She will keep her head elevated during the initial postop period. She will followup in a week for a wound check and for discussion of the pathology report. The sutures will be removed in two weeks. Grafts/Implants Used: None. Procedure Start Time: 07:51 Procedure Stop Time: 08:36 Complications None. Admit VTE Documentation VTE Present on Admission: No VTE Mechan Device Prophylaxis: SCD's VTE Pharm Prophylaxis ordered?: No Addendum Addendum: Surgery Charges CPT - 22774 ICD-10 - M67.441, L60.8, M15.1 17868 M67.441, L60.8, M15.1
--- NOTE | 2022-08-20 09:25 | DCINST_ITS ---
Discharge Instructions Diet Discharge Diet: No restrictions Activity Discharge Activity: May Not Drive, May Shower (wear plastic bag over right hand when showering. ) and - ( Keep right hand elevated. No lifting right hand.) May resume sexual activity in: No Restrictions Weight Bearing Status: Full weight bearing Lifting Restrictions: no lifting right hand. Keep extremity elevated above heart level: Right Arm Dressing / Incision Call your doctor if your incision/area has: Continuous Slow Oozing, Sudden Increased Bleeding, Increased Pain/ Swelling, Increased Redness, Foul Smelling Discharge and Swelling at the incision site Call your doctor if you observe: Fever of 101 or Higher, Coldness, Increased Pain, Shortness of breath, Chest pain, Calf discomfort and Uncontrolled pain Change Dressing in: do not change dressing (will remove the operative dressing in office in one week.) Remove Dressing in: 1 week (will remove the operative dressing in the office in a week.) Cleanse incision/area with: Keep Dressing Clean & Dry and - (wear plastic bag over right hand when showering.) Additional Dressing/Incision Instructions:: if the dressing feels tight, patient may unwrap the dressing and reapply more loosely. Or she can come into the office and we can change the dressing and apply it more loosely. Any questions she can call the office. Follow Up Care Please Follow Up With: Harris Lazar MD When: Friday August 26, 2022 at 1000am. Test Results: Test results from this visit will be discussed in further detail at your follow- up appointment, if applicable. Discharge Plan Admission Primary Reason for Your Visit: excision mucous cyst right index finger. Attending Provider: Harris Lazar Primary Care Provider: Fer Hough Discharge Orders/Prescriptions Prescriptions: New cefadroxil 500 mg capsule 500 mg PO BID Qty: 8 0RF oxycodone-acetaminophen [Percocet] 5-325 mg tablet 1 tab PO Q6H PRN (Reason: pain (scale score 7-10)) 7 Days Qty: 28 0RF Rx Instructions: 28 tabs (twenty-eight) L.acidoph,saliva-B.bif-S.therm [Acidophilus Probiotic Blend] 175 mg capsule 1 cap PO DAILY Qty: 10 0RF Continued amlodipine 5 mg tablet 5 mg PO DAILY Qty: 90 Label Comments: TAKE 1 TABLET BY MOUTH EVERY DAY folic acid 400 mcg tablet 400 mcg PO DAILY celecoxib 200 MG capsule 200 mg PO DAILY lisinopril 10 MG tablet 20 mg PO DAILY hydrochlorothiazide 25 MG tablet 25 mg PO DAILY pyridoxine (vitamin B6) 100 MG tablet 200 mg PO BID omega-3 fatty acids-fish oil 1 EACH capsule 1 ea PO TID magnesium oxide 500 MG capsule 500 mg PO BID cholecalciferol (vitamin D3) [Vitamin D3] 25 mcg (1,000 unit) Tablet 25 mcg PO BID turmeric root extract 500 mg Capsule 500 mg PO DAILY Nranwbft-Gukcwr-FLY with vit D 750-30-1,000-1 ur-yf-mvdp-mg Tablet 1 tab PO BID tolterodine 4 mg capsule,extended release 24hr 4 mg PO QHS Label Comments: TAKE 1 CAPSULE BY MOUTH ONCE DAILY IN THE EVENING TO HELP WITH URINE URGENCY Creon 36,000-114,000- 180,000 unit capsule,delayed release(DR/EC) 36,000 cap PO BID Label Comments: TAKE 3 CAPSULES BY MOUTH WITH MEALS AND 1 CAP WITH LARGE SNACK. MAX 11 CAPSULES DAILY Referrals / Follow Up: Fer Hough MD [Primary Care Provider] - Disposition Disposition (needs filled in before D/C Order can be placed): Home, Self Care
[2022-08-20 10:45] VITALS: BP 148/61; PULSE 56; RESP 16; TEMP 36.6; O2SAT 97
== END 2022-08-20 10:57 | disposition home or self-care (01) ==
LOC: SDC 05:43 → AC 05:44
PROVIDERS: PCP Family Medicine; Referring Provider Surgery; Visit Provider Surgery
PROC: (CPT 26160; principal; 2022-08-20 07:20)
DX: M67.441 Ganglion, right hand (principal); M15.1 Heberden's nodes (with arthropathy); E78.00 Pure hypercholesterolemia, unspecified; I10 Essential (primary) hypertension; L60.8 Other nail disorders
CPT/HCPCS: 26160; 14040; 01810; 88304; 88305; 88311; J7120; J2405

== ENCOUNTER → 2022-11-19 | Outpatient (CLI) | payer MEDICARE, SELFPAY ==
--- NOTE | 2022-11-19 08:41 | BI_ITS ---
MAMMOGRAPHY - BILATERAL SCREENING REASON FOR EXAM: Female, 77 years old. Routine annual screening examination. PERTINENT HISTORY: Aunt with breast cancer. TECHNIQUE: Digital bilateral breast paddy (3D mammographic acquisition) in the CC and MLO projections. 2-D mediolateral oblique (MLO) and craniocaudad (CC) views of both breasts were obtained. CAD: Full Field Digital Mammography with Computer Added Detection was performed. COMPARISON: Comparison is made with prior examination 02/16/2020 and 03/26/2018. FINDINGS: Breast Composition: The breasts are almost entirely fatty. There are no dominant masses or suspicious calcifications. No other significant abnormalities are identified. There has been no significant change since the prior study. BI/SCRN MAMM (CAD)W/PADDY BILAT IMPRESSION: Stable bilateral screening mammogram. Yearly follow-up mammogram recommended. (A) ASSESSMENT CATEGORY: BIRADS Category 1: Negative. A letter regarding these results will be sent to the patient by the facility within 30 days. Approximately 10% of breast cancers are not detected by mammography. A normal mammogram should not delay biopsy of a clinically suspicious abnormality. [id number] Electronically Signed: Ventura Winn MD at 9:42 EST ,
--- NOTE | 2022-11-19 08:46 | BD_ITS ---
STUDY: DUAL ENERGY X-RAY ABSORPTIOMETRY / DXA REASON FOR EXAM: Female, 77 years old. Z780 TECHNIQUE: Bone Mineral Density (BMD) measurements of lumbar spine and left hip were obtained. COMPARISON: Comparison is made with prior study dated 02/16/2020. FINDINGS: Lumbar Spine (L1-L4): g/cm2 (1.231) / T-score (1.7) / Z-score (4.2) Findings are suggestive of normal bone density with a low fracture risk. Left Femur Total: g/cm2 (0.962) / T-score (0.2) / Z-score (2.0) Left Femoral Neck: g/cm2 (0.817) / T-score (-0.3) / Z-score (1.9) The T-Scores on the most recent prior examination were: Lumbar Spine (L1-L4): There has been improvement of bone density since the previous examination. Left Femur Total: which represents a worsening of 0.2%. BD/Dexa Bone Density Study IMPRESSION: The patient is considered normal as outlined below according to World [employer] Organization (WHO) criteria with a low fracture risk. There has been improvement of bone density since the previous examination. Reference Information: The T-score is the number of standard deviations above or below the standard which is normal for young adults at their peak bone mineral density. The World Health Organization (WHO) interprets the T-scores as follows: Above -1 Normal bone density Between -1 and -2.5 Osteopenia Equal to / or below -2.5 Osteoporosis As a practical clinical guideline, osteopenia may be graded as follows: Mild -1 through -1.5 Moderate -1.6 through -2.0 Severe -2.1 through -2.4 The Z-score is the number of standard deviations above or below age-matched controls. A Z-score of less than -1.5 would be considered abnormal. References: 1. NIH Osteoporosis and Related Bone Diseases www osteo.org 2. International Society for Clinical Densitometry www iscd.org 3. National Osteoporosis Foundation www nof.org Electronically Signed: Ventura Winn MD at 9:34 EST ,
== END | disposition home or self-care (01) ==
PROVIDERS: PCP Family Medicine; Referring Provider Nurse Practitioner Family; Visit Provider Nurse Practitioner Family
DX: Z12.31 Encounter for screening mammogram for malignant neoplasm of breast (principal); Z78.0 Asymptomatic menopausal state; Z13.820 Encounter for screening for osteoporosis
CPT/HCPCS: 77063; 77067; 77080

== ENCOUNTER → 2023-03-02 | Outpatient (CLI) | payer MEDICARE, SELFPAY ==
[2023-03-02 12:09] LABS: Absolute Lymphocyte Count 1.63 X10^3/uL (0.83-4.51); Absolute Neutrophil Count 3.3 X10^3/uL (2.0-7.7); Basophil# 0.04 X10^3/uL; Basophil% 0.7 % (0-1); Eosinophil# 0.11 X10^3/uL; Hematocrit 49.9 % (37-47); Hemoglobin 16.6 g/dL (12.0-15.0); Lymphocyte # 1.63 X10^3/ul (0.83-4.51); Lymphocyte % 29.7 % (19-41); Mean Corp Hgb Conc 33.3 g/dL (32-36); Mean Corpuscular Hgb 30.1 pg (27.0-32.0); Mean Corpuscular Volume 90.6 fL (81-99); Mean Platelet Vol. 10.3 fl (6.2-12.0); Monocyte# 0.44 X10^3/uL; NRBC Flagged by Analyzer 0 % (0-5); Neutrophil # 3.26 X10^3/uL (2.7-7.7); Neutrophil % 59.4 % (47-70); Platelet Count 240 K/mm3 (150-450); RBC Distribution Width CV 12.5 % (11.6-14.6); RBC Distribution Width SD 41.2 fl (35.1-43.9); Red Blood Count 5.51 M/mm3 (4.2-5.4); White Blood Count 5.5 K/mm3 (4.4-11.0)
[2023-03-02 12:32] LABS: Microalbumin,Random Urine 32.8 mg/L (NO RANGE EST.); Microalbumin:Creatinine Ratio 71.9 mg/g CRE (<30 mg/g CRE)
[2023-03-02 12:51] LABS: Vitamin B12 783 pg/mL (211-911)
[2023-03-02 13:26] LABS: ALB/GLOB Ratio 0.9 RATIO (0.9-2.4); AST(SGOT) 17 U/L (15-37); Alanine Aminotransfer ALT/SGPT 26 U/L (13-56); Albumin, Serum 3.7 g/dL (3.2-5.0); Alkaline Phosphatase 62 U/L (45-117); Anion Gap 5 (5-15); BUN 20 mg/dL (7-18); BUN/Creat Ratio 25.4 RATIO (10-20); CRP < 2.90 mg/L (0.0-3.0); Calcium,Total 9.8 mg/dL (8.5-10.1); Chloride 104 mmol/L (98-107); Creatinine, Serum 0.79 mg/dL (0.55-1.02); EST Glomerular Filtration Rate 75 mL/min (>60); Est Glom Filt Rate - Afr Amer 91 mL/min (>60); Ferritin 87 ng/mL (8-252); Glucose 106 mg/dL (74-106); Magnesium 2.4 mg/dL (1.6-2.6); Potassium 3.6 mmol/L (3.5-5.1); Protein, Total 7.7 g/dL (6.4-8.2); Sodium Level 137 mmol/L (136-145)
== END | disposition home or self-care (01) ==
LOC: MTLAB 10:57
PROVIDERS: PCP Family Medicine; Referring Provider Family Medicine; Visit Provider Family Medicine
DX: K52.832 Lymphocytic colitis (principal); K86.89 Other specified diseases of pancreas; I10 Essential (primary) hypertension
CPT/HCPCS: 36415; 80053; 82043; 82570; 82607; 82728; 82746; 83735; 85025; 86140

== ENCOUNTER → 2023-07-21 | Outpatient (CLI) | payer MEDICARE, SELFPAY ==
[2023-07-21 10:08] LABS: Absolute Lymphocyte Count 1.72 X10^3/uL (0.83-4.51); Absolute Neutrophil Count 3.3 X10^3/uL (2.0-7.7); Basophil# 0.03 X10^3/uL; Basophil% 0.5 % (0-1); Eosinophil# 0.12 X10^3/uL; Eosinophils% 2.1 % (0-5); Hematocrit 47.9 % (37-47); Hemoglobin 15.8 g/dL (12.0-15.0); Lymphocyte # 1.72 X10^3/ul (0.83-4.51); Lymphocyte % 30.6 % (19-41); Mean Corpuscular Hgb 30.6 pg (27.0-32.0); Mean Corpuscular Volume 92.6 fL (81-99); Mean Platelet Vol. 10.3 fl (6.2-12.0); Monocyte# 0.48 X10^3/uL; Monocyte% 8.5 % (0-10); NRBC Flagged by Analyzer 0 % (0-5); Neutrophil # 3.25 X10^3/uL (2.7-7.7); Neutrophil % 57.9 % (47-70); Platelet Count 228 K/mm3 (150-450); RBC Distribution Width CV 12.6 % (11.6-14.6); RBC Distribution Width SD 43.5 fl (35.1-43.9); Red Blood Count 5.17 M/mm3 (4.2-5.4); White Blood Count 5.6 K/mm3 (4.4-11.0)
[2023-07-21 10:32] LABS: Prothrombin Time (Protime)PT. 12.7 SECONDS (11.7-14.9)
[2023-07-21 10:42] LABS: AST(SGOT) 14 U/L (15-37); Alanine Aminotransfer ALT/SGPT 21 U/L (13-56); Albumin, Serum 3.6 g/dL (3.2-5.0); Alkaline Phosphatase 51 U/L (45-117); Anion Gap 4 (5-15); BUN 25 mg/dL (7-18); BUN/Creat Ratio 26.2 RATIO (10-20); Calcium,Total 9.7 mg/dL (8.5-10.1); Chloride 105 mmol/L (98-107); Creatinine, Serum 0.96 mg/dL (0.55-1.02); EST Glomerular Filtration Rate 60 mL/min (>60); Est Glom Filt Rate - Afr Amer 73 mL/min (>60); Globulin 3.7 g/dL (2.2-4.2); Glucose 107 mg/dL (74-106); Potassium 3.7 mmol/L (3.5-5.1); Protein, Total 7.3 g/dL (6.4-8.2); Sodium Level 140 mmol/L (136-145)
[2023-07-21 11:47] LABS: Microalbumin,Random Urine 20.5 mg/L (NO RANGE EST.); Microalbumin:Creatinine Ratio 19.9 mg/g CRE (<30 mg/g CRE)
== END | disposition home or self-care (01) ==
LOC: MTLAB 08:47
PROVIDERS: PCP Family Medicine
DX: K76.0 Fatty (change of) liver, not elsewhere classified (principal); R10.13 Epigastric pain
CPT/HCPCS: 36415; 80053; 82043; 82570; 85025; 85610

== ENCOUNTER → 2024-03-17 | Outpatient (CLI) | payer MEDICARE, SELFPAY ==
[2024-03-17 16:10] LABS: Absolute Lymphocyte Count 1.66 X10^3/uL (0.83-4.51); Absolute Neutrophil Count 2.2 X10^3/uL (2.0-7.7); Basophil# 0.04 X10^3/uL; Basophil% 0.9 % (0-1); Eosinophil# 0.16 X10^3/uL; Eosinophils% 3.5 % (0-5); Hematocrit 47.2 % (37-47); Hemoglobin 15.1 g/dL (12.0-15.0); Lymphocyte # 1.66 X10^3/ul (0.83-4.51); Lymphocyte % 36.6 % (19-41); Mean Corpuscular Volume 90.8 fL (81-99); Mean Platelet Vol. 10.2 fl (6.2-12.0); Monocyte# 0.42 X10^3/uL; Monocyte% 9.3 % (0-10); NRBC Flagged by Analyzer 0 % (0-5); Neutrophil # 2.24 X10^3/uL (2.7-7.7); Neutrophil % 49.3 % (47-70); Platelet Count 227 K/mm3 (150-450); RBC Distribution Width SD 43.5 fl (35.1-43.9); White Blood Count 4.5 K/mm3 (4.4-11.0)
[2024-03-17 16:28] LABS: Erythrocyte Sedimentation Rate 10 mm/hr (0-30)
[2024-03-17 16:42] LABS: Microalbumin,Random Urine 15.8 mg/L (NO RANGE EST.); Microalbumin:Creatinine Ratio 27.2 mg/g CRE (<30 mg/g CRE)
[2024-03-17 16:46] LABS: ALB/GLOB Ratio 1.1 RATIO (0.9-2.4); AST(SGOT) 20 U/L (15-37); Alanine Aminotransfer ALT/SGPT 25 U/L (13-56); Albumin, Serum 3.9 g/dL (3.2-5.0); Alkaline Phosphatase 57 U/L (45-117); Anion Gap 5 (5-15); BUN 22 mg/dL (7-18); BUN/Creat Ratio 25.4 RATIO (10-20); CRP < 2.90 mg/L (0.0-3.0); Chloride 102 mmol/L (98-107); Creatinine, Serum 0.87 mg/dL (0.55-1.02); EST Glomerular Filtration Rate 67 mL/min (>60); Est Glom Filt Rate - Afr Amer 81 mL/min (>60); Globulin 3.6 g/dL (2.2-4.2); Glucose 95 mg/dL (74-106); Potassium 3.8 mmol/L (3.5-5.1); Protein, Total 7.5 g/dL (6.4-8.2); Sodium Level 139 mmol/L (136-145); Thyroid Stim Hormone (TSH) 3.08 uIU/mL (0.358-3.74)
[2024-03-19 11:10] LABS: Lyme Scn Total Ab w/Rflx Negative (Negative)
[2024-03-21 13:07] LABS: ANTINUCLEAR ANTIBODIES DIRECT Negative (Negative)
== END | disposition home or self-care (01) ==
LOC: MFPLAB 11:04
PROVIDERS: PCP Family Medicine; Visit Provider Family Medicine
DX: M19.90 Unspecified osteoarthritis, unspecified site (principal); I10 Essential (primary) hypertension
CPT/HCPCS: 36415; 80053; 82043; 82570; 84443; 85025; 85652; 86038; 86140; 86618

== ENCOUNTER → 2024-04-07 | Outpatient (CLI) | payer MEDICARE, SELFPAY ==
[2024-04-07 17:44] LABS: Absolute Lymphocyte Count 1.82 X10^3/uL (0.83-4.51); Absolute Neutrophil Count 2.4 X10^3/uL (2.0-7.7); Basophil# 0.02 X10^3/uL; Basophil% 0.4 % (0-1); Hematocrit 44.4 % (37-47); Hemoglobin 14.6 g/dL (12.0-15.0); Lymphocyte # 1.82 X10^3/ul (0.83-4.51); Lymphocyte % 36.3 % (19-41); Mean Corp Hgb Conc 32.9 g/dL (32-36); Mean Corpuscular Hgb 29.4 pg (27.0-32.0); Mean Corpuscular Volume 89.5 fL (81-99); Mean Platelet Vol. 10.1 fl (6.2-12.0); Monocyte# 0.71 X10^3/uL; Monocyte% 14.1 % (0-10); NRBC Flagged by Analyzer 0 % (0-5); Neutrophil # 2.36 X10^3/uL (2.7-7.7); Platelet Count 250 K/mm3 (150-450); RBC Distribution Width CV 12.5 % (11.6-14.6); RBC Distribution Width SD 41.1 fl (35.1-43.9); Red Blood Count 4.96 M/mm3 (4.2-5.4)
[2024-04-07 17:55] LABS: Erythrocyte Sedimentation Rate 14 mm/hr (0-30)
[2024-04-07 18:38] LABS: ALB/GLOB Ratio 0.9 RATIO (0.9-2.4); AST(SGOT) 23 U/L (15-37); Alanine Aminotransfer ALT/SGPT 28 U/L (13-56); Albumin, Serum 3.5 g/dL (3.2-5.0); Alkaline Phosphatase 57 U/L (45-117); Anion Gap 5 (5-15); BUN 25 mg/dL (7-18); BUN/Creat Ratio 27.8 RATIO (10-20); CRP < 2.90 mg/L (0.0-3.0); Calcium,Total 9.6 mg/dL (8.5-10.1); Chloride 101 mmol/L (98-107); EST Glomerular Filtration Rate 64 mL/min (>60); Est Glom Filt Rate - Afr Amer 78 mL/min (>60); Glucose 93 mg/dL (74-106); Lipase 23 U/L (13-75); Potassium 3.6 mmol/L (3.5-5.1); Protein, Total 7.5 g/dL (6.4-8.2); Sodium Level 137 mmol/L (136-145)
== END | disposition home or self-care (01) ==
PROVIDERS: PCP Family Medicine; Visit Provider Family Medicine
DX: R19.7 Diarrhea, unspecified (principal); R10.13 Epigastric pain
CPT/HCPCS: 36415; 80053; 83690; 83993; 85025; 85652; 86140; 87329; 87493

== ENCOUNTER → 2024-05-04 | Outpatient (CLI) | payer MEDICARE, SELFPAY ==
--- NOTE | 2024-05-04 14:01 | CT_ITS ---
PROCEDURE: CT LEFT KNEE WITHOUT CONTRAST REASON FOR EXAM: Female, 79 years old. Preoperative planning for the [employer] Robotic knee surgery. Knee pain. TECHNIQUE: Transaxial CT of the hip, knee and ankle were obtained. Coronal and sagittal reconstruction images of the knee were provided. Individualized dose optimization techniques were used for this CT. COMPARISON: None. FINDINGS: Standard protocol for the preoperative planning for the [employer] robotic knee surgery was performed. Mild arthrosis of the left, moderate medial compartmental arthrosis of the knee and mild arthrosis of the lateral and patellofemoral compartments. Mild arthrosis of the tibiotalar joint.. CT/Extremity Lower without Contra IMPRESSION: Preoperative [employer] Robotic knee surgical CT evaluation with findings as described above. Electronically Signed: Tyrese Jj MD at 15:41 EDT ,
== END | disposition home or self-care (01) ==
LOC: CT 13:56
PROVIDERS: PCP Family Medicine; Referring Provider Orthopaedic Surgery; Visit Provider Orthopaedic Surgery
DX: M17.12 Unilateral primary osteoarthritis, left knee (principal); M21.162 Varus deformity, not elsewhere classified, left knee
CPT/HCPCS: 73700

== ENCOUNTER → 2024-05-24 | Outpatient (CLI) | payer MEDICARE, SELFPAY ==
--- NOTE | 2024-05-24 10:49 | EKG12_ITS ---
Test Reason : PRE OP Blood Pressure : / mmHG Vent. Rate : 058 BPM Atrial Rate : 058 BPM P-R Int : 188 ms QRS Dur : 076 ms QT Int : 384 ms P-R-T Axes : 057 -22 063 degrees QTc Int : 376 ms Sinus bradycardia with Premature atrial complexes Septal infarct (cited on or before 31-JAN-2015) Abnormal ECG Confirmed by MAN MALONE, LILIA ([id number]), editorial intern DULCE MARIA SALDANA ([id number]) on 05/25/2024 9:34:25 AM Referred By: All Turner Confirmed By:PIEDAD CONWAY MD
--- NOTE | 2024-05-24 11:10 | RAD_ITS ---
STUDY: X-RAY CHEST REASON FOR EXAM: Female, 79 years old. Pre-Surgical Testing TECHNIQUE: PA and lateral views of the chest. COMPARISON: None. FINDINGS: The lungs are clear and expanded. There is no demonstrated pleural abnormality. Normal size heart. Normal mediastinum and juan alberto. Normal visualized pulmonary arteries. Normal visualized aortic arch and descending thoracic aorta. Normal visualized thoracic spine. Normal visualized ribs, clavicles, and shoulders. There is no demonstrated abnormality of the visualized soft tissue structures of the upper abdomen. RAD/Chest PA and Lateral IMPRESSION: Normal x-ray examination of the chest. Electronically Signed: Avila Benedict MD at 8:16 EDT ,
[2024-05-24 12:38] LABS: Absolute Lymphocyte Count 1.68 X10^3/uL (0.83-4.51); Absolute Neutrophil Count 2.8 X10^3/uL (2.0-7.7); Basophil# 0.04 X10^3/uL; Basophil% 0.8 % (0-1); Eosinophil# 0.17 X10^3/uL; Eosinophils% 3.3 % (0-5); Hematocrit 45.9 % (37-47); Hemoglobin 15.2 g/dL (12.0-15.0); Lymphocyte # 1.68 X10^3/ul (0.83-4.51); Lymphocyte % 32.7 % (19-41); Mean Corp Hgb Conc 33.1 g/dL (32-36); Mean Corpuscular Hgb 29.2 pg (27.0-32.0); Mean Corpuscular Volume 88.3 fL (81-99); Mean Platelet Vol. 10.4 fl (6.2-12.0); Monocyte# 0.46 X10^3/uL; Monocyte% 8.9 % (0-10); NRBC Flagged by Analyzer 0 % (0-5); Neutrophil # 2.78 X10^3/uL (2.7-7.7); Neutrophil % 54.1 % (47-70); Platelet Count 215 K/mm3 (150-450); RBC Distribution Width CV 12.7 % (11.6-14.6); RBC Distribution Width SD 40.9 fl (35.1-43.9); White Blood Count 5.1 K/mm3 (4.4-11.0)
[2024-05-24 13:19] LABS: Albumin, Serum 3.8 g/dL (3.2-5.0); Anion Gap 5 (5-15); BUN 22 mg/dL (7-18); BUN/Creat Ratio 24.6 RATIO (10-20); Calcium,Total 9.9 mg/dL (8.5-10.1); Chloride 105 mmol/L (98-107); EST Glomerular Filtration Rate 65 mL/min (>60); Est Glom Filt Rate - Afr Amer 78 mL/min (>60); Glucose 107 mg/dL (74-106); Potassium 3.6 mmol/L (3.5-5.1); Sodium Level 138 mmol/L (136-145)
== END | disposition home or self-care (01) ==
PROVIDERS: PCP Family Medicine; Referring Provider Orthopaedic Surgery; Visit Provider Orthopaedic Surgery
DX: Z01.810 Encounter for preprocedural cardiovascular examination (principal); Z01.811 Encounter for preprocedural respiratory examination; Z01.818 Encounter for other preprocedural examination; I10 Essential (primary) hypertension
CPT/HCPCS: 36415; 71046; 80048; 82040; 85025; 93005

== ENCOUNTER → 2024-06-17 | Outpatient (CLI) | payer MEDICARE, SELFPAY ==
--- NOTE | 2024-06-17 07:15 | KNEE_PTH ---
PATIENT: GARCIA MELGOZA LOC: [facility] U#:[id number] AGE/SX: 79/F ROOM: RE06/17/[address]: Dr. All Turner MD : 1945 BED: DIS: 06/17/2024 SPEC #: [id number] RECD: 06/17/24 14:54 STATUS: MARTHA REQ #: [id number] JERMAINE: 06/17/24 07:[address]: All Turner DEPT: SURGICAL PATHOLOGY RECD BY: Barby Castle ENTERED: 06/20/24 09:37 SP TYPE: TOTAL KNEE OTHR DR: Dr. Fer Hough MD [facility] Tissues: Knee, NOS Procedures: Decalcification bone/plaque Surgery Specimen Level IV HEADER OPERATION: Left total knee replacement PRE-OP DIAGNOSIS: Left knee grade 4 osteoarthritis TISSUE SUBMITTED: Bone and tissue left knee MICROSCOPIC DIAGNOSIS Bone and tissue of left knee, total knee resection: Severe degenerative joint disease. AM: 06/22/2024 MICROSCOPIC DESCRIPTION Slides are reviewed. GROSS DESCRIPTION Received is one container designated bone and soft tissue left knee. The specimen consists of multiple fragments of doshi-yellow bone measuring in aggregate 10.0 x 8.0 x 2.0 cm. No soft tissue is identified. A number of bony fragments contain articular surfaces consistent with tibial plateau and femoral condyle and displaying prominent osteophyte formation, eburnation and bone erosion. Perfusionist sections are submitted in one cassette after decalcification./ YOKSATA/ 06/20/2024 TC:5 CPT: 91157, 04394
== END | disposition home or self-care (01) ==
LOC: LABSPEC 16:22
PROVIDERS: PCP Family Medicine; Referring Provider Orthopaedic Surgery; Visit Provider Orthopaedic Surgery
DX: M17.12 Unilateral primary osteoarthritis, left knee (principal)
CPT/HCPCS: 88305; 88311

== ENCOUNTER → 2024-09-13 | Outpatient (CLI) | payer MEDICARE, SELFPAY ==
[2024-09-13 15:42] LABS: Prothrombin Time (Protime)PT. 13.2 SECONDS (11.7-14.9)
[2024-09-13 15:47] LABS: ALB/GLOB Ratio 1.1 RATIO (0.9-2.4); AST(SGOT) 18 U/L (15-37); Alanine Aminotransfer ALT/SGPT 23 U/L (13-56); Albumin, Serum 3.9 g/dL (3.2-5.0); Alkaline Phosphatase 61 U/L (45-117); Anion Gap 4 (5-15); BUN 25 mg/dL (7-18); Calcium,Total 9.9 mg/dL (8.5-10.1); Chloride 103 mmol/L (98-107); Creatinine, Serum 0.83 mg/dL (0.55-1.02); EST Glomerular Filtration Rate 70 mL/min (>60); Est Glom Filt Rate - Afr Amer 85 mL/min (>60); Globulin 3.6 g/dL (2.2-4.2); Glucose 95 mg/dL (74-106); Protein, Total 7.5 g/dL (6.4-8.2); Sodium Level 138 mmol/L (136-145)
[2024-09-13 15:57] LABS: Microalbumin,Random Urine 19.1 mg/L (NO RANGE EST.); Microalbumin:Creatinine Ratio 30.5 mg/g CRE (<30 mg/g CRE)
[2024-09-13 16:11] LABS: Hemoglobin A1c 5.8 % (3.8-5.6)
== END | disposition home or self-care (01) ==
LOC: MFPLAB 11:26
PROVIDERS: PCP Family Medicine; Visit Provider Family Medicine
DX: I10 Essential (primary) hypertension (principal); E88.810 Metabolic syndrome; K76.0 Fatty (change of) liver, not elsewhere classified
CPT/HCPCS: 36415; 80053; 82043; 82570; 83036; 85610

== ENCOUNTER → 2025-02-03 | Outpatient (CLI) | payer MEDICARE, SELFPAY ==
[2025-02-03 12:37] LABS: Absolute Lymphocyte Count 1.67 X10^3/uL (0.83-4.51); Absolute Neutrophil Count 2.8 X10^3/uL (2.0-7.7); Basophil# 0.04 X10^3/uL; Basophil% 0.8 % (0-1); Eosinophil# 0.15 X10^3/uL; Eosinophils% 2.9 % (0-5); Hematocrit 44.1 % (37-47); Lymphocyte # 1.67 X10^3/ul (0.83-4.51); Lymphocyte % 32.6 % (19-41); Mean Corpuscular Hgb 30.8 pg (27.0-32.0); Mean Corpuscular Volume 90.6 fL (81-99); Mean Platelet Vol. 9.6 fl (6.2-12.0); Monocyte# 0.49 X10^3/uL; Monocyte% 9.6 % (0-10); NRBC Flagged by Analyzer 0 % (0-5); Neutrophil # 2.76 X10^3/uL (2.7-7.7); Neutrophil % 53.9 % (47-70); Platelet Count 225 K/mm3 (150-450); RBC Distribution Width CV 12.2 % (11.6-14.6); RBC Distribution Width SD 40.7 fl (35.1-43.9); Red Blood Count 4.87 M/mm3 (4.2-5.4); White Blood Count 5.1 K/mm3 (4.4-11.0)
[2025-02-03 14:09] LABS: AST(SGOT) 22 U/L (<=31); Alanine Aminotransfer ALT/SGPT 18 U/L (<=34); Albumin, Serum 4.8 g/dL (3.4-4.8); Alkaline Phosphatase 68 U/L (35-104); Bilirubin, Direct 0.43 mg/dL (0.00-0.30); Globulin 2.7 g/dL (2.2-4.2); Protein, Total 7.5 g/dL (5.9-8.4)
== END | disposition home or self-care (01) ==
LOC: MTLAB 11:11
PROVIDERS: PCP Family Medicine
DX: K52.832 Lymphocytic colitis (principal); K76.0 Fatty (change of) liver, not elsewhere classified
CPT/HCPCS: 36415; 80076; 85025

== ENCOUNTER → 2025-05-01 | Outpatient (CLI) | payer MEDICARE, SELFPAY ==
[2025-05-01 15:13] LABS: Absolute Lymphocyte Count 1.83 X10^3/uL (0.83-4.51); Absolute Neutrophil Count 3.1 X10^3/uL (2.0-7.7); Basophil# 0.03 X10^3/uL; Basophil% 0.5 % (0-1); Eosinophil# 0.11 X10^3/uL; Eosinophils% 1.9 % (0-5); Hematocrit 47.5 % (37-47); Hemoglobin 15.8 g/dL (12.0-15.0); Lymphocyte # 1.83 X10^3/ul (0.83-4.51); Mean Corp Hgb Conc 33.3 g/dL (32-36); Mean Corpuscular Hgb 30.2 pg (27.0-32.0); Mean Corpuscular Volume 90.8 fL (81-99); Mean Platelet Vol. 9.9 fl (6.2-12.0); Monocyte# 0.63 X10^3/uL; NRBC Flagged by Analyzer 0 % (0-5); Neutrophil # 3.09 X10^3/uL (2.7-7.7); Neutrophil % 54.1 % (47-70); Platelet Count 263 K/mm3 (150-450); RBC Distribution Width CV 12.3 % (11.6-14.6); Red Blood Count 5.23 M/mm3 (4.2-5.4); White Blood Count 5.7 K/mm3 (4.4-11.0)
[2025-05-01 15:51] LABS: ALB/GLOB Ratio 1.4 RATIO (0.9-2.4); AST(SGOT) 23 U/L (<=31); Alanine Aminotransfer ALT/SGPT 15 U/L (<=34); Albumin, Serum 4.5 g/dL (3.4-4.8); Alkaline Phosphatase 71 U/L (35-104); Anion Gap 12 (5-15); BUN 26 mg/dL (4-19); Calcium,Total 10.2 mg/dL (7.6-11.0); Carbon Dioxide 27.5 mmol/L (21.0-32.0); Chloride 101 mmol/L (98-108); Creatinine, Serum 1.15 mg/dL (0.70-1.20); EST Glomerular Filtration Rate 48 (>60); Ferritin 102 ng/mL (22-378); Globulin 3.2 g/dL (2.2-4.2); Glucose 111 mg/dL (70-99); Magnesium 2.7 mg/dL (1.5-2.2); Potassium 4.6 mmol/L (3.3-5.1); Protein, Total 7.6 g/dL (5.9-8.4); Sodium Level 141 mmol/L (133-145)
[2025-05-01 16:37] LABS: Microalbumin,Random Urine 28.5 mg/L (NO RANGE EST.); Microalbumin:Creatinine Ratio 16.6 mg/g CRE
== END | disposition home or self-care (01) ==
LOC: MFPLAB 12:01
PROVIDERS: PCP Family Medicine; Visit Provider Family Medicine
DX: K86.81 Exocrine pancreatic insufficiency (principal); I10 Essential (primary) hypertension; K76.0 Fatty (change of) liver, not elsewhere classified
CPT/HCPCS: 36415; 80053; 82043; 82570; 82728; 83735; 85025

== ENCOUNTER → 2025-08-16 | Outpatient (CLI) | payer MEDICARE, SELFPAY | END | disposition home or self-care (01) | LOC: LABSPEC 10:53 | PROVIDERS: PCP Family Medicine | DX: R19.7 Diarrhea, unspecified (principal) | CPT/HCPCS: 87493 ==

== ENCOUNTER → 2025-10-12 | Outpatient (CLI) | payer MEDICARE, SELFPAY ==
--- NOTE | 2025-10-12 15:06 | BD_ITS ---
PROCEDURE: DEXA BONE DENSITY STUDY 10/12/2025 REASON FOR EXAM: F, age 80 y/o . TECHNIQUE: Procedure Code: BDDBD Modality: DX Procedure: DEXA BONE DENSITY STUDY COMPARISON: 11/19/2022 FINDINGS: BMD and T-SCORES Lumbar spine: 1.154 g/cm2, T-score 1.1 Levels: L1 and L4 Change from prior: -1.7%. Left femoral neck: 0.796 g/cm2, T-score -0.5 Left total hip: 0.917 g/cm2, T-score -0.2 Change from prior: -4.7%. The World Health Organization has defined the following categories based on bone density: Normal bone density: T-score equal to or greater than -1.0 Osteopenia: T-score between -1.0 and -2.5 Osteoporosis: T-score equal to or less than -2.5 FRAX (or Comparable) Fracture Risk Assessment: 10 Year Probability of Fracture: Major Osteoporotic Fracture: 9.4% Hip Fracture: 1.4% (Note: FRAX is not to be reported in setting of normal range bone density, osteoporosis on DEXA, known history of osteoporosis, prior osteoporotic hip or vertebral fracture, or for any patient undergoing pharmacological treatment for bone loss.) The National Osteoporosis Foundation (NOF) recommends pharmacological treatment for patients with a FRAX 10-year risk of 3% or higher for a hip fracture, or 20% or higher for a major osteoporotic fracture, to prevent osteoporosis and reduce fracture risk. The patient does not meet the pharmacological treatment recommendations for prevention of osteoporosis.
--- NOTE | 2025-10-12 16:00 | BI_ITS ---
EXAM: SCRN MAMM (CAD)W/PADDY BILAT DATE: 10/12/2025 CLINICAL HISTORY: F, Age 80 y/o , SCREEN TECHNIQUE: Procedure Code: [id number] Modality: MG Procedure: SCRN MAMM (CAD)W/PADDY BILAT COMPARISON: Prior exam(s) dated 11/19/2022, 02/16/2020. FINDINGS: TISSUE DENSITY: The breasts are almost entirely fatty. Bilateral Breast Mammographic Findings: No significant masses, calcifications or other abnormalities are identified. BI/SCRN MAMM (CAD)W/PADDY BILAT IMPRESSION: There is no mammographic evidence of malignancy. OVERALL FINAL ASSESSMENT BI-RADS 1: NEGATIVE. RECOMMENDATION: Routine annual follow-up in 1 Year Additional Recommendation none A letter with findings and recommendations will be mailed to the patient. Reading Location: [id number]
--- OUTSIDE RECORDS SUMMARY | 2025-10-12 18:22 | XMS RPT_ITS | CCD ---
Author Organization [facility] CliniSymn Care Team Providers Care Zigzagger Name Role Phone Dr. Maribell Hough Primary Care Provider [phone] Dr. Maribell Hough Referring Provider [phone] Dr. Harris Lazar Attending Provider Dr. Maribell Hough Primary Care Provider [phone] Nagi, Dr. Harris Campos Attending Provider Nagi, Dr. Harris Campos Referring Provider Nagi, Dr. Harris Campos Other Provider Dr. Maribell Hough Primary Care Provider [phone] Nagi, Dr. Harris Campos Attending Provider Nagi, Dr. Harris Campos Referring Provider Nagi, Dr. Harris Campos Other Provider Dr. Maribell Hough Referring Provider [phone] Dr. Maribell Hough MD Primary Care Provider Dr. Maribell Hough MD Referring Provider Tao Cisse Attending Provider JOSE MEYERS Attending Provider JOSE MEYERS Referring Provider Dr. Maribell Hough MD Primary Care Provider Dr. Maribell Hough MD Attending Provider Dr. Maribell Hough MD Primary Care Physician Gianluca MALONE, Dr. Monroe Attending Physician Dr. Maribell Hough MD Referring Provider [phone] Tao Cisse Attending Physician [phone] Maribell Hough Referring Unavailable Maribell Hough Primary Care Unavailable Tao Cisse Attending Unavailable Maribell Hough Primary Care Unavailable Maribell Hough Referring Unavailable Tao Cisse Attending Unavailable Maribell Hough Primary Care Unavailable McMorrow GRINDING SUPERVISOR, Laurent Referring Unavailable McMorrow GRINDING SUPERVISOR, Laurent Attending Unavailable Maribell Hough Attending Unavailable Maribell Hough Primary Care Unavailable DAVID OBRIEN Attending Unavailable Mariblel Hough Primary Care Unavailable DAVID OBRIEN Referring Unavailable Maribell Hough Primary Care Unavailable Maribell Hough Attending Unavailable Medications Current Medications Medication Drug Class(es) Dates Sig (Normalized) Sig (Original) amoxicillin 875 mg oral tablet (1 source) Penicillin-class Antibacterial Start: 08-01-2025 take 1 tablet by mouth twice daily Amoxicillin 875 mg tablet Active 875 mg PO TWICE A DAY August 01, 2025 12:00am Complies with drug therapy amylase 893834 unt / lipase 92704 unt / protease [id number] unt delayed release oral capsule (6 sources) Start: 08-13-2022 take 32403-910684 capsules by mouth twice daily Qbaubi-Xqyzfmeq-Iwoi ase (Creon) 36,000-114,000- 180,000 unit capsule,delayed release(DR/EC) Active 58821 NMA PO TWICE A DAY August 13, 2022 12:00am Complies with drug therapy cholecalciferol 0.025 mg oral tablet (9 sources) Vitamin D Start: 04-29-2021 take 1 tablet by mouth twice daily Cholecalciferol (Vitamin D3) (Vitamin D3) 25 mcg (1,000 unit) Tablet Active 25 ug PO TWICE A DAY April 29, 2021 12:00am Complies with drug therapy folic acid 0.4 mg oral tablet (9 sources) Start: 09-21-2019 take 1 tablet by mouth once daily Folic Acid 400 mcg tablet Active 400 ug PO DAILY September 21, 2019 1:00am Complies with drug therapy Nnzlbwrm-Nfvxy-Isp 2-C-D3-Silva (Cukglwez-Fgjbyh-Uxt With Vit D) 750-30-1,000-1 mi-dq-gzxh-mg Tablet (9 sources) Start: 04-29-2021 take 1 tablet by mouth once daily Xtjemhtr-Ftpia-Tbc 2-C-D3-Silva (Injmfays-Mltaxn-Mfc With Vit D) 750-30-1,000-1 jk-fw-poiw-mg Tablet Active 1 TABLET PO DAILY April 29, 2021 2:55pm Start: 04-29-2021 Glucosam-Chond -Msm 2-C-D3-Silva (Fufvgdsu-Rkommb-Pip With Vit D) 750-30-1,000-1 pl-wh-pzfy-mg Tablet Active 1 {tbl} PO TWICE A DAY April 29, 2021 12:00am Complies with drug therapy Start: 04-29-2021 Glucosam-Chond -Msm 2-C-D3-Silva (Yyttqrdf-Ufifsy-Ppc With Vit D) 750-30-1,000-1 ji-lv-heky-mg Tablet Active 1 {tbl} PO TWICE A DAY April 29, 2021 12:00am Start: 04-29-2021 take 1 tablet by brad twice daily Pjljwxnt-Mqjwx-Ekf 2-C-D3-Silva (Jotqofft-Nwhkjp-Dka With Vit D) 750-30-1,000-1 jo-ms-xofz-mg Tablet Active 1 TABLET PO TWICE A DAY April 28, 2021 11:00pm Start: 04-29-2021 take 1 tablet by brad twice daily Zzmrsjws-Fbcbl-Znd 2-C-D3-Silva (Ykdsllrz-Ojkxxu-Cnn With Vit D) 750-30-1,000-1 eb-jo-nwkk-mg Tablet Active 1 TABLET PO TWICE A DAY April 29, 2021 12:00am Start: 04-29-2021 take 1 tablet by brad once daily Wkewtmwk-Ttecs-Qen 2-C-D3-Silva (Cyxdpxqo-Emoefs-Usy With Vit D) 750-30-1,000-1 gg-nh-evdo-mg Tablet Active 1 TABLET PO DAILY April 29, 2021 12:00am hydroCHLOROthiazide 25 mg oral tablet (9 sources) Thiazide Diuretic Start: 11-17-2018 take 1 tablet by mouth once daily Hydrochlorothiazide 25 MG tablet Active 25 mg PO DAILY November 17, 2018 1:00am Complies with drug therapy lisinopril 10 mg oral tablet (9 sources) Angiotensin Converting Enzyme Inhibitor Start: 11-17-2018 take 2 tablets by mouth once daily Lisinopril 10 MG tablet Active 20 mg PO DAILY November 17, 2018 1:00am Complies with drug therapy Start: 11-17-2018 take 20 mg by mouth once daily Lisinopril Active 20 MG PO DAILY November 17, 2018 1:00am magnesium oxide 500 mg oral capsule (9 sources) Start: 11-17-2018 take 1 capsule by mouth twice daily Magnesium Oxide 500 MG capsule Active 500 mg PO TWICE A DAY November 17, 2018 1:00am Complies with drug therapy Taswell-3 Fatty Acids-Fish Oil (6 sources) Start: 11-17-2018 Taswell-3 Fatty Acids-Fish Oil Active 1 EACH PO THREE TIMES A DAY November 17, 2018 8:04pm Start: 11-17-2018 Taswell-3 Fatty Acids-Fish Oil Active 1 EACH PO THREE TIMES A DAY November 17, 2018 12:00am Start: 11-17-2018 Taswell-3 Fatty Acids-Fish Oil Active 1 EACH PO THREE TIMES A DAY November 17, 2018 1:00am Taswell-3 Fatty Acids-Fish Oil 1 EACH capsule (3 sources) Start: 11-17-2018 Taswell-3 Fatty Acids-Fish Oil 1 EACH capsule Active 1 NMA PO THREE TIMES A DAY November 17, 2018 1:00am Complies with drug therapy Start: 11-17-2018 Taswell-3 Fatty Acids-Fish Oil 1 EACH capsule Active 1 NMA PO THREE TIMES A DAY November 17, 2018 1:00am 24 hr tolterodine tartrate 4 mg extended release oral capsule (9 sources) Cholinergic Muscarinic Antagonist Start: 01-30-2022 take 1 capsule by mouth every twenty-four hours at bedtime Tolterodine 4 mg capsule,extended release 24hr Active 4 mg PO AT BEDTIME January 30, 2022 12:00am Complies with drug therapy Turmeric Root Extract (3 sources) Start: 04-29-2021 take 500 mg by mouth once daily Turmeric Root Extract Active 500 MG PO DAILY April 29, 2021 2:55pm Start: 04-29-2021 take 500 mg by mouth once gilles y Turmeric Root Extract Active 500 MG PO DAILY April 29, 2021 12:00am Turmeric Root Extract (3 sources) Start: 04-29-2021 take 500 mg by mouth once daily Turmeric Root Extract Active 500 MG PO DAILY April 28, 2021 11:00pm Start: 04-29-2021 take 500 mg by mouth once gilles y Turmeric Root Extract Active 500 MG PO DAILY April 29, 2021 12:00am Turmeric Root Extract 500 mg Capsule (3 sources) Start: 04-29-2021 take 1 capsule by mouth once daily Turmeric Root Extract 500 mg Capsule Active 500 mg PO DAILY April 29, 2021 12:00am Complies with drug therapy Start: 04-29-2021 take 1 capsule by mo uth once daily Turmeric Root Extract 500 mg Capsule Active 500 mg PO DAILY April 29, 2021 12:00am vitamin b6 100 mg oral table t (9 sources) Start: 11-17-2018 Pyridoxine (Vi tamin B6) 100 MG tablet Active 200 mg PO TWICE A DAY November 17, 2018 1:00am Complies with drug therapy Completed/Discontinued Medications Medication Drug Class(es) Dates Sig (Normalized) Sig (Original) acetaminophen 325 mg / oxyCODONE hydrochloride 5 mg oral tablet (6 sources) Opioid Agonist Start: 08-20-2022 End: 09-02-2022 take 7-10 tablets by mouth every six hours as needed for pain Oxycodone-Acetamino phen (Percocet) 5-325 mg tablet Discontinued 1 {tbl} PO EVERY 6 HOURS as needed for pain (scale score 7-10) 28 7 0 August 20, 2022 September 02, 2022 1:35pm Other acute postprocedural pain Other acute postprocedural pain 28 tabs (twenty-eight) amLODIPine 5 mg oral tablet (9 sources) Dihydropyridine Calcium Channel Nikki Start: 09-21-2019 End: 02-24-2024 take 1 tablet by mouth once daily Amlodipine 5 mg tablet Discontinued 5 mg PO DAILY 90 0 September 21, 2019 1:00am February 24, 2024 9:29am amoxicillin 875 mg / clavulanate 125 mg oral tablet (9 sources) Penicillin-class Antibacterial Start: 11-17-2018 End: 09-21-2019 take 1 tablet by mouth every twelve hours Amoxicillin-Pot Clavulanate 875 MG tablet Discontinued 875 mg PO Q12H 6 0 November 17, 2018 1:00am September 21, 2019 10:45am aspirin 81 mg chewable tablet (18 sources) Platelet Aggregation Inhibitor, Nonsteroidal Anti-inflammatory Drug Start: 11-17-2018 End: 09-21-2019 take 1 tablet by mouth once daily Aspirin 81 MG tablet,chewable Discontinued 81 mg PO DAILY November 17, 2018 1:00am September 21, 2019 10:45am Start: 01-31-2015 End: 02-21-2015 take 1 tablet by mouth once daily Aspirin 81 MG tablet Discontinued 81 mg PO DAILY@0800 January 31, 2015 12:00am February 21, 2015 10:28am benzonatate 100 mg oral capsule (6 sources) Non-narcotic Antitussive Start: 10-26-2024 End: 08-01-2025 take 1 capsule by mouth three times daily as needed for cough Benzonatate 100 mg capsule Discontinued 100 mg PO THREE TIMES A DAY as needed for cough 20 0 October 26, 2024 1:00am August 01, 2025 10:23am Start: 02-24-2024 End: 10-26-2024 take 1 capsule by mouth three times daily as needed for cough Benzonatate 200 mg capsule Discontinued 200 mg PO THREE TIMES A DAY as needed for cough 20 0 February 24, 2024 12:00am October 26, 2024 9:39am 12 hr buPROPion hydrochloride 150 mg extended release oral tablet (9 sources) Aminoketone Start: 11-17-2018 End: 09-21-2019 take 1 tablet by mouth every twelve hours at bedtime Bupropion Hcl 150 MG tablet sustained-release 12 hr Discontinued 150 mg PO AT BEDTIME November 17, 2018 1:00am September 21, 2019 10:52am cefadroxil 500 mg oral capsule (6 sources) Cephalosporin Antibacterial Start: 08-20-2022 End: 09-02-2022 take 1 capsule by mouth twice daily Cefadroxil 500 mg capsule Discontinued 500 mg PO TWICE A DAY 8 0 August 20, 2022 12:00am September 02, 2022 1:34pm celecoxib 200 mg oral capsule (9 sources) Nonsteroidal Anti-inflammatory Drug Start: 11-17-2018 End: 08-01-2025 take 1 capsule by mouth once daily Celecoxib 200 MG capsule Discontinued 200 mg PO DAILY November 17, 2018 1:00am August 01, 2025 10:22am cephalexin 500 mg oral capsule (3 sources) Cephalosporin Antibacterial Start: 07-27-2024 End: 10-26-2024 take 1 capsule by mouth three times daily Cephalexin 500 mg capsule Discontinued 500 mg PO THREE TIMES A DAY July 27, 2024 12:00October 26, 2024 9:38am L.Acidoph,Saliva-B .Bif-S.Therm (Acidophilus Probiotic Blend) 175 mg capsule (6 sources) Start: 08-20-2022 End: 09-02-2022 take 1 capsule by mouth once daily L.Acidoph,Saliva-B.Bif -S.Therm (Acidophilus Probiotic Blend) 175 mg capsule Discontinued 1 NMA PO DAILY August 20, 2022 12:00am September 02, 2022 1:34pm Start: 08-20-2022 End: 09-02-2022 take 1 capsule by mouth once daily L.Acidoph,Saliva-B.Bif-S.Therm (Acidophi korey Probiotic Blend) 175 mg capsule Discontinued 1 NMA PO DAILY August 20, 2022 12:00am September 02, 2022 1:34pm Start: 08-20-2022 End: 09-02-2022 take 1 capsule by mouth once daily L.Acidoph,Saliva-B.Bif-S.Therm (Acidophi korey Probiotic Blend) 175 mg capsule Discontinued 1 CAP PO DAILY August 20, 2022 12:00am September 02, 2022 1:34pm Start: 08-20-2022 End: 09-02-2022 take 1 capsule by mouth once daily L.Acidoph,Saliva-B.Bif-S.Therm (Acidophi korey Probiotic Blend) 175 mg capsule Discontinued 1 CAP PO DAILY August 19, 2022 11:00pm September 02, 2022 12:34pm Start: 08-20-2022 take 1 capsule by mouth once daily L.Acidoph,Saliva-B.Bif-S.Therm (Acidophi korey Probiotic Blend) 175 mg capsule Active 1 CAP PO DAILY August 20, 2022 12:00am methylPREDNISolone 4 mg oral tablet (3 sources) Corticosteroid Start: 10-26-2024 End: 08-01-2025 take 1 tablet by mouth once Methylprednisolone (Medrol (Patrice)) 4 mg tablets,dose pack Discontinued 0 PO per package directions October 26, 2024 1:00am August 01, 2025 10:23am PO PER PKG DIR traMADol hydrochloride 50 mg oral tablet (9 sources) Opioid Agonist Start: 01-31-2015 End: 02-21-2015 take 1 tablet by mouth every six hours as needed for pain Tramadol 50 MG tablet Discontinued 50 mg PO EVERY 6 HOURS NEEDED as needed for Pain January 31, 2015 12:00am February 21, 2015 10:28am Problems Active Problems Problem Classification Problem Date Documented Da te Episodic/Chronic Abdominal hernia (9 sources) Ventral incisional hernia; Translations: [Incisional hernia without obstruction or gangrene] 04-19-2021 Episodic Abdominal pain (9 sources) Epigastric pain; Translations: [Epigastric pain] 04-19-2021 Episodic Allergic reactions (9 sources) Allergic condition; Translations: [Allergy, unspecified, initial encounter] 12-20-2021 Episodic Blindness and vision defects (9 sources) Wears glasses; Translations: [Presence of spectacles and contact lenses] 12-20-2021 Episodic Disorders of lipid metabolism (9 sources) Hypercholesterolemia ; Translations: [Pure hypercholesterolemia , unspecified] 08-13-2022 Chronic Comment on above: CONTROLLED WITH DIET Essential hypertension (10 sources) Hypertensive disorder; Translations: [Essential (primary) hypertension] Onset: 10-05-2024 04-29-2021 Chronic Comment on above: CONTROLLED ON MED Malaise and fatigue (9 sources) Fatigue; Translations: [Other fatigue] 09-21-2019 Episodic Mood disorders (9 sources) Depressive disorder; Translations: [Depression] 09-21-2019 Chronic Noninfectious gastroenteritis (10 sources) Lymphocytic colitis; Translations: [Lymphocytic colitis] Onset: 02-07-2025 09-21-2019 Chronic Osteoarthritis (20 sources) Bilateral Heberden nodes; Translations: [Heberden's nodes (with arthropathy)] Chronic Other connective tissue disease (9 sources) Ganglion cyst of right hand; Translations: [Ganglion, right hand] 08-22-2022 Episodic Comment on above: 6 mm ulcerated mucou s cyst radial aspect right index finger involving the eponychial fold Other connective tissue disease (5 sources) Ganglion, right hand; Translations: [Ganglion, unspecified] Episodic Other gastrointestinal disorders (9 sources) Diarrhea; Translations: [Diarrhea, unspecified] 04-19-2021 Episodic Other gastrointestinal disorders (1 source) Diarrhea, unspecified; Translations: [Diarrhea, unspecified] Onset: 09-06-2025 Episodic Other inflammatory condition of skin (9 sources) Psoriasis; Translations: [Psoriasis, unspecified] 12-20-2021 Chronic Other liver diseases (9 sources) Disease of liver; Translations: [Liver disease, unspecified] 12-20-2021 Chronic Other liver diseases (9 sources) Increased bilirubin level; Translations: [Unspecified jaundice] 09-21-2019 Episodic Other nervous system disorders (9 sources) Numbness and tingling sensation of skin; Translations: [Anesthesia of skin] 09-21-2019 Episodic Other nervous system disorders (6 sources) Acute postoperative pain; Translations: [Other acute postprocedural pain] 08-20-2022 Episodic Other skin disorders (9 sources) Acquired deformity of nail of finger; Translations: [Other nail disorders] 12-24-2021 Episodic Comment on above: nail grooving radial aspect right index finger nail Other skin disorders (5 sources) Other nail disorders; Translations: [Other specified diseases of nail] Episodic Residual codes; unclassified (9 sources) History of colonoscopy; Translations: [Other specified postprocedural states] 09-21-2019 Episodic Comment on above: 12/19/14 Skin and subcutaneous tissue infections (3 sources) Onychia of finger; Translations: [Cellulitis of right finger] 07-27-2024 Episodic Spondylosis; intervertebral disc disorders; other back problems (9 sources) Back problem; Translations: [Dorsopathy, unspecified] 09-21-2019 Episodic Past or Other Problems Problem Classification Problem Date Documented Da te Episodic/Chronic Pancreatic disorders (not diabetes) (1 source) Exocrine pancreatic insufficiency; Translations: [Exocrine pancreatic insufficiency] Onset: 05-05-2025 Episodic Results Test Name Value Interpretation Reference Range Facility CDIFF (PCR)on 08-16-2025 CDIFF A positive C. difficile molecular test does not differentiate between an active C. difficile infection and C. difficile colonization. Use clinical judgement and paired toxin/antigen testing to identify true infection and need for treatment. C diff DNA Spec Ql JAMESON+probe Reference Range: Negative [facility] GeneXpert: polymerase chain reaction (PCR) 027 027 NAP1-B1 Presumptive Negative *for epidemiolologic???u se C. Diff PCR Negative- No toxigenic C. Diff Detected Normal [facility] Comment on above: Performed By: #### M 100.6796 #### [facility] [address] [place], [address] Urgent Care Visit Reporton 0 08-01-2025 Urgent Care Visit Report [facility] [address], [address] [place] [address] OFFICE VISIT Date of Service: 08/01/25 MR#: [id number] Acct: [id number] Name: GARCIA MELGOZA Rep #: [id number] : 1945 Provider: LANIE Paez Age/Sex: 80/F Location: [facility] Status: Signed Intake Vital Signs 02/24/24 09:28 08/01/25 10:24 Height 5 ft 2 in 5 ft 2 in Weight: 185 lb BMI 33.8 BP 150/86 H Blood Pressure Location Lt brachial Position Sitting Pulse 84 Pulse Source Monitor Temp 98.6 F Temp Source Oral Pulse Oximetry (%) 98 Oxygen Delivery Method room air Intake Visit Reasons: CONGESTION, COUGH Chief Complaint: Cough, Congestion Accompanied by: Self Allergies No Known Allergies Allergy (Verified 08/01/25 10:22) Medications ???Medication ???Instructions ???Recorded ???Confirmed ???Type hydrochlorothiazide 25 mg tablet 25 mg PO DAILY 11/17/18 08/01/25 H istory lisinopril 10 mg tablet 20 mg PO DAILY 11/17/18 08/01/25 H istory magnesium oxide 500 mg capsule 500 mg PO BID 11/17/18 08/01/25 Hi story omega-3 fatty acids-fish oil 340 1 ea PO TID 11/17/18 08/01/25 Hist ory mg-1,000 mg capsule pyridoxine (vitamin B6) 100 mg 200 mg PO BID 11/17/18 08/01/25 Hi story tablet folic acid 400 mcg tablet 400 mcg PO DAILY 09/21/19 08/01/25 History cholecalciferol (vitamin D3) 25 25 mcg PO BID 04/29/21 08/01/25 Hi story mcg (1,000 unit) tablet (Vitamin D3) glucosamine 750 tq-yvrsmt-rtm 2-C 1 tab PO BID 04/29/21 08/01/25 Hi story 30 mg-D3 1,000 unit-silva 1 mg tablet (Glucosamine-Chondr oitin-MSM + vitD) turmeric root extract 500 mg 500 mg PO DAILY 04/29/21 08/01/25 History capsule tolterodine 4 mg capsule,extended 4 mg PO QHS 01/30/22 08/01/25 His tory release 24 hr juiwid-tcejfvee-fjk lase 36,000 cap PO BID 08/13/22 5 History 36,000-114,000-180, 000 unit capsule,delay rel (Creon) amoxicillin 875 mg tablet 875 mg PO BID #20 tabs 08/01/25 Rx Have you fallen in the past year?: No Nurse's Note: Cough, congestion, sneezing. Started before the fair was going on, but cough and congestion stayed. [facility] Medical History (Updated 07/27/24 @ 08:46 by Tao Espinoza PA, PA) Paronychia of right middle finger Wears partial dentures Post-menopausal History of hiatal hernia Non-smoker 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 Ganglion cyst of finger of right hand Psoriasis Liver disease High cholesterol Gall stones Carpal tunnel syndrome Cataract Allergies Wears glasses Kidney stone Fatty liver Gastric reflux Shortness of breath on exertion Lymphocytic colitis Depression Numbness and tingling Arthritis Back problem Elevated bilirubin Fatigue Osteoarthritis Hypertension Surgical History History of surgical removal of ganglion cyst Hx of colonoscopy History of total right hip replacement ( 02/19/15) Hx of tonsillectomy History of carpal tunnel surgery Hx of colonoscopy Hx of cholecystectomy Family History Mother Arthritis Hypertension Father Heart disease Hypertension Diabetes Angina at rest Brother Pancreatic cancer Diabetes Heart disease Hypertension Cancer skin cancer Skin cancer Brother Diabetes Hypertension Social History Smoking Status: Never smoker second hand exposure: No alcohol intake: never substance use type: does not use caffeine: Yes what type of physical activity do you participate in: none frequency: does not exercise additional social history: Does Not Take Aspirin Does Not Take Ibuprofen HPI HPI Chief Complaint: Cough, Congestion Details: GARCIA MELGOZA, is a 80 F who presents to the office today for [facility] evaluation at [facility] for approximately 3-week history of progressively worsening forehead pressure/congestion with purulent postnasal drip, cough, and sore throat. No complaints of fever, chills, myalgias, fatigue, runny nose, or nausea/vomiting/lopez rrhea. No complaints of chest pain/shortness of breath/dyspnea on exertion. No close contacts with similar complaints. No other associated symptoms and no other alleviating/aggrava ting factors. ROS Const Constitutional: No other (as above) Exam Const General: cooperative, healthy appearing and no acute distress Orientation: alert, awake HENMT Head: normal to inspection Ears: hearing grossly normal bilaterally, external ears normal, TM's normal bilaterally and EAC's normal Nose: external nose normal, nares normal, septum normal and no nasal discharge Face and sinus: (more content not included)... Normal [facility] Absolute lymphocyte countOrd ered By: Maribell Hough on 05-01-2025 Lymphocytes Auto (Unsp spec) [#/Vol] 1.83 10*3/uL 0.83-4.51 [facility] Absolute neutrophil countOrd ered By: Maribell Hough on 05-01-2025 Neutrophils (Bld) [#/Vol] 3.1 10*3/uL 2.0-7.7 [facility] Anion gap in Serum or Plasma Ordered By: Maribell Hough on 05-01-2025 Anion gap [Moles/Vol] 12 mmol/L 5-15 [facility] Automated lymphocyte count a s percentage of total leukocytesOrdered By: Maribell Hough on 05-01-2025 Lymphocytes/100 WBC Auto (Unsp spec) 32.0 % 19-41 [facility] BUN/creatinine ratioOrdered By: Maribell Hough on 05-01-2025 Urea nitrogen/Creatinine [Mass ratio] 23.0 mg/mg High 10-20 [facility] Basophil percentageOrdered B y: Maribell Hough on 05-01-2025 Basophils/100 WBC (Bld) 0.5 % 0-1 [facility] Bilirubin, totalOrdered By: Maribell Hough on 05-01-2025 Bilirubin [Mass/Vol] 0.90 mg/dL 0.00-1.30 [facility] CBC W/Diff, Automatedon 06-2 -2024 Absolute Lymph 1.83 X10 3/uL Normal 0.83-4.51 [facility] Comment on above: Performed By: #### L 100.0100, L502.0250, L501.5200, L500.4050, L503.6550 #### [facility] [address] [place], [address] Absolute Neut 3.1 X10 3/uL Normal 2.0-7.7 [facility] Comment on above: Performed By: #### L 100.0100, L502.0250, L501.5200, L500.4050, L503.6550 #### [facility] [address] [place], [address] Basophils/100 WBC (Bld) 0.5 % Normal 0-1 [facility] Comment on above: Performed By: #### L 100.0100, L502.0250, L501.5200, L500.4050, L503.6550 #### [facility] [address] [place], [address] Eosinophils/100 WBC (Bld) 1.9 % Normal 0-5 [facility] Comment on above: Performed By: #### L 100.0100, L502.0250, L501.5200, L500.4050, L503.6550 #### [facility] [address] [place], [address] Erythrocyte distribution width (RBC) [Ratio] 12.3 % Normal 11.6-14.6 [facility] Comment on above: Performed By: #### L 100.0100, L502.0250, L501.5200, L500.4050, L503.6550 #### [facility] [address] [place], [address] Hematocrit (Bld) [Volume fraction] 47.5 % High 37-47 [facility] Comment on above: Performed By: #### L 100.0100, L502.0250, L501.5200, L500.4050, L503.6550 #### [facility] [address] [place], [address] Hemoglobin (Bld) [Mass/Vol] 15.8 g/dL High 12.0-15.0 [facility] Comment on above: Performed By: #### L 100.0100, L502.0250, L501.5200, L500.4050, L503.6550 #### [facility] [address] [place], [address] IG% 0.500 Normal 0.0-0.9 [facility] Comment on above: Result Comment: IG% - Immature Granulocytes (promyelocytes, myelocytes and metamyelocytes) > 1% indicates that a LEFT SHIFT is Present. Performed By: #### L 100.0100, L502.0250, L501.5200, L500.4050, L503.6550 #### [facility] [address] [place], [address] Lymphocytes/100 WBC (Bld) 32.0 % Normal 19-41 [facility] Comment on above: Performed By: #### L 100.0100, L502.0250, L501.5200, L500.4050, L503.6550 #### [facility] [address] [place], [address] MCH (RBC) [Entitic mass] 30.2 pg Normal 27.0-32.0 [facility] Comment on above: Performed By: #### L 100.0100, L502.0250, L501.5200, L500.4050, L503.6550 #### [facility] [address] [place], [address] MCHC (RBC) [Mass/Vol] 33.3 g/dL Normal 32-36 [facility] Comment on above: Performed By: #### L 100.0100, L502.0250, L501.5200, L500.4050, L503.6550 #### [facility] [address] [place], [address] MCV (RBC) [Entitic vol] 90.8 fL Normal 81-99 [facility] Comment on above: Performed By: #### L 100.0100, L502.0250, L501.5200, L500.4050, L503.6550 #### [facility] [address] [place], [address] Monocytes/100 WBC (Bld) 11.0 % High 0-10 [facility] Comment on above: Performed By: #### L 100.0100, L502.0250, L501.5200, L500.4050, L503.6550 #### [facility] [address] [place], [address] Neutrophils/100 WBC (Bld) 54.1 % Normal 47-70 [facility] Comment on above: Performed By: #### L 100.0100, L502.0250, L501.5200, L500.4050, L503.6550 #### [facility] [address] [place], [address] Nucleated RBC (Bld) [#/Vol] 0 10*3/uL Normal 0-5 [facility] Comment on above: Performed By: #### L 100.0100, L502.0250, L501.5200, L500.4050, L503.6550 #### [facility] [address] [place], [address] Platelet mean volume (Bld) [Entitic vol] 9.9 fL Normal 6.2-12.0 [facility] Comment on above: Performed By: #### L 100.0100, L502.0250, L501.5200, L500.4050, L503.6550 #### [facility] [address] [place], [address] Platelets (Bld) [#/Vol] 263 10*3/uL Normal 150-450 [facility] Comment on above: Performed By: #### L 100.0100, L502.0250, L501.5200, L500.4050, L503.6550 #### [facility] [address] [place], [address] RBC (Bld) [#/Vol] 5.23 10*6/uL Normal 4.2-5.4 [facility] Comment on above: Performed By: #### L 100.0100, L502.0250, L501.5200, L500.4050, L503.6550 #### [facility] [address] [place], [address] RDW SD 41.0 fl Normal 35.1-43.9 [facility] Comment on above: Performed By: #### L 100.0100, L502.0250, L501.5200, L500.4050, L503.6550 #### [facility] [address] [place], [address] WBC (Bld) [#/Vol] 5.7 10*3/uL Normal 4.4-11.0 [facility] Comment on above: Performed By: #### L 100.0100, L502.0250, L501.5200, L500.4050, L503.6550 #### [facility] [address] [place], [address] Carbon dioxide, total [Moles /volume] in Central venous bloodOrdered By: Maribell Hough on 05-01-2025 CO2 [Moles/Vol] 27.5 mmol/L 21.0-32.0 [facility] Chloride assayOrdered By: Gaurang Hough on 05-01-2025 Chloride [Moles/Vol] 101 mmol/L 98-108 [facility] Comprehensive Metabolic Prof ilon 05-01-2025 Albumin [Mass/Vol] 4.5 g/dL Normal 3.4-4.8 [facility] Comment on above: Performed By: #### L 100.0100, L502.0250, L501.5200, L500.4050, L503.6550 #### [facility] [address] [place], [address] Albumin/Globulin [Mass ratio] 1.4 {ratio} Normal 0.9-2.4 [facility] Comment on above: Performed By: #### L 100.0100, L502.0250, L501.5200, L500.4050, L503.6550 #### [facility] [address] [place], [address] ALK PHOS 71 U/L Normal 35-104 [facility] Comment on above: Performed By: #### L 100.0100, L502.0250, L501.5200, L500.4050, L503.6550 #### [facility] [address] [place], [address] ALT [Catalytic activity/Vol] 15 U/L Normal <=34 [facility] Comment on above: Performed By: #### L 100.0100, L502.0250, L501.5200, L500.4050, L503.6550 #### [facility] [address] [place], [address] AST [Catalytic activity/Vol] 23 U/L Normal <=31 [facility] Comment on above: Performed By: #### L 100.0100, L502.0250, L501.5200, L500.4050, L503.6550 #### [facility] [address] [place], [address] Bilirubin [Mass/Vol] 0.90 mg/dL Normal 0.00-1.30 [facility] Comment on above: Performed By: #### L 100.0100, L502.0250, L501.5200, L500.4050, L503.6550 #### [facility] [address] [place], [address] BUN/CRE 23.0 RATIO High 10-20 [facility] Comment on above: Performed By: #### L 100.0100, L502.0250, L501.5200, L500.4050, L503.6550 #### [facility] [address] [place], [address] Calcium [Mass/Vol] 10.2 mg/dL Normal 7.6-11.0 [facility] Comment on above: Performed By: #### L 100.0100, L502.0250, L501.5200, L500.4050, L503.6550 #### [facility] [address] [place], [address] Chloride [Moles/Vol] 101 mmol/L Normal 98-108 [facility] Comment on above: Performed By: #### L 100.0100, L502.0250, L501.5200, L500.4050, L503.6550 #### [facility] [address] [place], [address] CO2 [Moles/Vol] 27.5 mmol/L Normal 21.0-32.0 [facility] Comment on above: Performed By: #### L 100.0100, L502.0250, L501.5200, L500.4050, L503.6550 #### [facility] [address] [place], [address] Creatinine [Mass/Vol] 1.15 mg/dL Normal 0.70-1.20 [facility] Comment on above: Performed By: #### L 100.0100, L502.0250, L501.5200, L500.4050, L503.6550 #### [facility] [address] [place], [address] GAP 12 Normal 5-15 [facility] Comment on above: Performed By: #### L 100.0100, L502.0250, L501.5200, L500.4050, L503.6550 #### [facility] [address] [place], [address] GFR/1.73 sq M.predicted among non-blacks MDRD (S/P/Bld) [Vol rate/Area] 48 mL/min/{1.73_m2} Low >60 [facility] Comment on above: Result Comment: mL/m in/1.73m2 CKD-EPI Creatinine Equation (2020) Performed By: #### L 100.0100, L502.0250, L501.5200, L500.4050, L503.6550 #### [facility] [address] [place], [address] Globulin (S) [Mass/Vol] 3.2 g/dL Normal 2.2-4.2 [facility] Comment on above: Performed By: #### L 100.0100, L502.0250, L501.5200, L500.4050, L503.6550 #### [facility] [address] [place], [address] Glucose [Mass/Vol] 111 mg/dL High 70-99 [facility] Comment on above: Performed By: #### L 100.0100, L502.0250, L501.5200, L500.4050, L503.6550 #### [facility] [address] [place], [address] Potassium [Moles/Vol] 4.6 mmol/L Normal 3.3-5.1 [facility] Comment on above: Performed By: #### L 100.0100, L502.0250, L501.5200, L500.4050, L503.6550 #### [facility] [address] [place], [address] Sodium [Moles/Vol] 141 mmol/L Normal 133-145 [facility] Comment on above: Performed By: #### L 100.0100, L502.0250, L501.5200, L500.4050, L503.6550 #### [facility] [address] [place], [address] T PROT 7.6 g/dL Normal 5.9-8.4 [facility] Comment on above: Performed By: #### L 100.0100, L502.0250, L501.5200, L500.4050, L503.6550 #### [facility] [address] [place], [address] Urea nitrogen [Mass/Vol] 26 mg/dL High 4-19 [facility] Comment on above: Performed By: #### L 100.0100, L502.0250, L501.5200, L500.4050, L503.6550 #### [facility] [address] [place], [address] Eosinophil percentageOrdered By: Maribell Hough on 05-01-2025 Eosinophils/100 WBC (Bld) 1.9 % 0-5 [facility] Erythrocyte distribution wid th ratioOrdered By: Maribell Hough on 05-01-2025 Erythrocyte distribution width (RBC) [Ratio] 12.3 % 11.6-14.6 [facility] Erythrocyte distribution wid th standard deviationOrdered By: Maribell Hough on 05-01-2025 Erythrocyte distribution width (RBC) [Ratio] 41.0 fl 35.1-43.9 [facility] Ferritinon 05-01-2025 Ferritin [Mass/Vol] 102 ng/mL Normal 22-378 [facility] Comment on above: Performed By: #### L 502.0250, L501.9985, L500.4050, L300.3900 #### [facility] [address] [place], [place], [address] Glomerular filtration rate ( GFR) estimation/1.73 sq m using serum, plasma, or whole bOrdered By: Maribell Hough on 05-01-2025 GFR/1.73 sq M.predicted among non-blacks MDRD (S/P/Bld) [Vol rate/Area] 48 mL/min/{1.73_m2} Low >60 [facility] Comment on above: mL/min/1.73m2 CKD-EP I Creatinine Equation (2020) Hematocrit Auto (Bld) [Volum e fraction]Ordered By: Maribell Hough on 05-01-2025 Hematocrit (Bld) [Volume fraction] 47.5 % High 37-47 [facility] Hemoglobin measurementOrdere d By: Maribell Hough on 05-01-2025 Hemoglobin (Bld) [Mass/Vol] 15.8 g/dL High 12.0-15.0 [facility] Immature granulocytes/100 WB C Auto (Bld)Ordered By: Maribell Hough on 05-01-2025 Immature granulocytes/100 WBC (Bld) 0.500 % 0.0-0.9 [facility] Comment on above: IG% - Immature Granu locytes (promyelocytes, myelocytes and metamyelocytes) > 1% indicates that a LEFT SHIFT is Present. Laboratory - Chemistry and C hemistry - challengeOrdered By: Maribell Hough on 05-01-2025 AST [Catalytic activity/Vol] 23 U/L <32 [facility] MCV (mean corpuscular volume ) determinationOrdered By: Maribell Hough on 05-01-2025 MCV (RBC) [Entitic vol] 90.8 fL 81-99 [facility] Magnesiumon 05-01-2025 Magnesium [Mass/Vol] 2.7 mg/dL High 1.5-2.2 [facility] Comment on above: Performed By: #### L 100.0100, L502.0250, L501.5200, L500.4050, L503.6550 #### [facility] [address] [place], [address] Magnesium measurement (mass/ volume)Ordered By: Maribell Hough on 05-01-2025 Magnesium (Unsp spec) [Mass/Vol] 2.7 mg/dL High 1.5-2.2 [facility] Mean corpuscular hemoglobin (MCH) determinationOrdered By: Maribell Hough on 05-01-2025 MCH (RBC) [Entitic mass] 30.2 pg 27.0-32.0 [facility] Mean corpuscular hemoglobin concentration (MCHC) determinationOrdered By: Maribell Hough on 05-01-2025 MCHC (RBC) [Mass/Vol] 33.3 g/dL 32-36 [facility] Mean platelet volume determi nationOrdered By: Maribell Hough on 05-01-2025 Platelet mean volume (Bld) [Entitic vol] 9.9 fL 6.2-12.0 [facility] Microalb:Creat Ratio,Random URon 05-01-2025 Creatinine [Mass/Vol] 172.00 mg/dL Normal 28.00-217.00 [facility] Comment on above: Performed By: #### L 502.0250, L501.9985, L500.4050, L300.3900 #### [facility] [address] [place], [address] MALB:CREAT 16.6 mg/g CRE Normal [facility] Comment on above: Performed By: #### L 502.0250, L501.9985, L500.4050, L300.3900 #### [facility] [address] [place], [address] MICROALBUMIN,UR 28.5 mg/L Normal NO RANGE EST. [facility] Comment on above: Performed By: #### L 502.0250, L501.9985, L500.4050, L300.3900 #### [facility] [address] [place], [address] Monocyte percentageOrdered B y: Maribell Hough on 05-01-2025 Monocytes/100 WBC (Bld) 11.0 % High 0-10 [facility] Neutrophil percentageOrdered By: Maribell Hough on 05-01-2025 Neutrophils/100 WBC (Bld) 54.1 % 47-70 [facility] Nucleated red blood cell per centageOrdered By: Maribell Hough on 05-01-2025 Nucleated RBC/100 WBC (Bld) [Ratio] 0 % 0-5 [facility] Platelet countOrdered By: Gaurang Hough on 05-01-2025 Platelets (Bld) [#/Vol] 263 10*3/uL 150-450 [facility] Potassium measurement (mass/ volume)Ordered By: Maribell Hough on 05-01-2025 Potassium (Unsp spec) [Mass/Vol] 4.6 mmol/L 3.3-5.1 [facility] RBC Auto (Bld) [#/Vol]Ordere d By: Maribell Hough on 05-01-2025 RBC (Bld) [#/Vol] 5.23 10*6/uL 4.2-5.4 [facility] Random urine creatinine nataliya urement (mass/volume)Ordered By: Maribell Hough on 05-01-2025 Creatinine Unsp time (U) [Mass/Vol] 172.00 mg/dL 28.00-217.00 [facility] Serum creatinine measurement (mass/volume)Ordered By: Maribell Hough on 05-01-2025 Creatinine [Mass/Vol] 1.15 mg/dL 0.70-1.20 [facility] Serum globulin measurementOr dered By: Maribell Hough on 05-01-2025 Globulin (S) [Mass/Vol] 3.2 g/dL 2.2-4.2 [facility] Serum glucose measurement (m ass/volume)Ordered By: Maribell Hough on 05-01-2025 Glucose [Mass/Vol] 111 mg/dL High 70-99 [facility] Serum or plasma alanine stoll otransferase (ALT) measurementOrdered By: Maribell Hough on 05-01-2025 ALT [Catalytic activity/Vol] 15 U/L <35 [facility] Serum or plasma albumin nataliya urement (mass/volume)Ordered By: Maribell Hough on 05-01-2025 Albumin [Mass/Vol] 4.5 g/dL 3.4-4.8 [facility] Serum or plasma albumin/glob ulin mass ratioOrdered By: Maribell Hough on 05-01-2025 Albumin/Globulin [Mass ratio] 1.4 {ratio} 0.9-2.4 [facility] Serum or plasma alkaline ravi sphatase measurementOrdered By: Maribell Hough on 05-01-2025 ALP [Catalytic activity/Vol] 71 U/L 35-104 [facility] Serum or plasma calcium nataliya urement (mass/volume)Ordered By: Maribell Hough on 05-01-2025 Calcium [Mass/Vol] 10.2 mg/dL 7.6-11.0 [facility] Serum or plasma ferritin kimi surement (mass/volume)Ordered By: Maribell Hough on 05-01-2025 Ferritin [Mass/Vol] 102 ng/mL 22-378 [facility] Serum or plasma urea nitroge n measurement (mass/volume)Ordered By: Maribell Hough on 05-01-2025 Urea nitrogen [Mass/Vol] 26 mg/dL High 4-19 [facility] Sodium levelOrdered By: Maribell Hough on 05-01-2025 Sodium [Moles/Vol] 141 mmol/L 133-145 [facility] Total proteinOrdered By: Mansi Hough on 05-01-2025 Protein [Mass/Vol] 7.6 g/dL 5.9-8.4 [facility] Urine albumin measurement [facility] detection limit of 20 mg/L or less (mass/volume)Ordered By: Maribell Hough on 05-01-2025 Albumin DL <= 20 mg/L (U) [Mass/Vol] 28.5 mg/L NO RANGE EST. [facility] White blood cell (WBC) count Ordered By: Maribell Hough on 05-01-2025 WBC (Bld) [#/Vol] 5.7 10*3/uL 4.4-11.0 [facility] Absolute lymphocyte counton 02-03-2025 Lymphocytes Auto (Unsp spec) [#/Vol] 1.67 10*3/uL 0.83-4.51 [facility] Absolute neutrophil counton 02-03-2025 Neutrophils (Bld) [#/Vol] 2.8 10*3/uL 2.0-7.7 [facility] Automated lymphocyte count a s percentage of total leukocyteson 02-03-2025 Lymphocytes/100 WBC Auto (Unsp spec) 32.6 % 19-41 [facility] Basophil percentageon 2024 Basophils/100 WBC (Bld) 0.8 % 0-1 [facility] Bilirubin directon Bilirubin.direct [Mass/Vol] 0.43 mg/dL High 0.00-0.30 [facility] Bilirubin, totalon Bilirubin [Mass/Vol] 1.10 mg/dL 0.00-1.30 [facility] CBC W/Diff, Automatedon 01-08 Absolute Lymph 1.67 X10 3/uL Normal 0.83-4.51 [facility] Comment on above: Performed By: #### L 502.0250, L501.9985, L500.4050, L300.3900 #### [facility] [address] [place], [address] Absolute Neut 2.8 X10 3/uL Normal 2.0-7.7 [facility] Comment on above: Performed By: #### L 502.0250, L501.9985, L500.4050, L300.3900 #### [facility] [address] [place], [address] Basophils/100 WBC (Bld) 0.8 % Normal 0-1 [facility] Comment on above: Performed By: #### L 502.0250, L501.9985, L500.4050, L300.3900 #### [facility] [address] [place], [address] Eosinophils/100 WBC (Bld) 2.9 % Normal 0-5 [facility] Comment on above: Performed By: #### L 502.0250, L501.9985, L500.4050, L300.3900 #### [facility] [address] [place], [address] Erythrocyte distribution width (RBC) [Ratio] 12.2 % Normal 11.6-14.6 [facility] Comment on above: Performed By: #### L 502.0250, L501.9985, L500.4050, L300.3900 #### [facility] [address] [place], [address] Hematocrit (Bld) [Volume fraction] 44.1 % Normal 37-47 [facility] Comment on above: Performed By: #### L 502.0250, L501.9985, L500.4050, L300.3900 #### [facility] [address] [place], [address] Hemoglobin (Bld) [Mass/Vol] 15.0 g/dL Normal 12.0-15.0 [facility] Comment on above: Performed By: #### L 502.0250, L501.9985, L500.4050, L300.3900 #### [facility] [address] [place], [address] IG% 0.200 Normal 0.0-0.9 [facility] Comment on above: Result Comment: IG% - Immature Granulocytes (promyelocytes, myelocytes and metamyelocytes) > 1% indicates that a LEFT SHIFT is Present. Performed By: #### L 502.0250, L501.9985, L500.4050, L300.3900 #### [facility] [address] [place], [address] Lymphocytes/100 WBC (Bld) 32.6 % Normal 19-41 [facility] Comment on above: Performed By: #### L 502.0250, L501.9985, L500.4050, L300.3900 #### [facility] [address] [place], [address] MCH (RBC) [Entitic mass] 30.8 pg Normal 27.0-32.0 [facility] Comment on above: Performed By: #### L 502.0250, L501.9985, L500.4050, L300.3900 #### [facility] [address] [place], [address] MCHC (RBC) [Mass/Vol] 34.0 g/dL Normal 32-36 [facility] Comment on above: Performed By: #### L 502.0250, L501.9985, L500.4050, L300.3900 #### [facility] [address] [place], [address] MCV (RBC) [Entitic vol] 90.6 fL Normal 81-99 [facility] Comment on above: Performed By: #### L 502.0250, L501.9985, L500.4050, L300.3900 #### [facility] [address] [place], [address] Monocytes/100 WBC (Bld) 9.6 % Normal 0-10 [facility] Comment on above: Performed By: #### L 502.0250, L501.9985, L500.4050, L300.3900 #### [facility] [address] [place], [address] Neutrophils/100 WBC (Bld) 53.9 % Normal 47-70 [facility] Comment on above: Performed By: #### L 502.0250, L501.9985, L500.4050, L300.3900 #### [facility] [address] [place], [address] Nucleated RBC (Bld) [#/Vol] 0 10*3/uL Normal 0-5 [facility] Comment on above: Performed By: #### L 502.0250, L501.9985, L500.4050, L300.3900 #### [facility] [address] [place], [address] Platelet mean volume (Bld) [Entitic vol] 9.6 fL Normal 6.2-12.0 [facility] Comment on above: Performed By: #### L 502.0250, L501.9985, L500.4050, L300.3900 #### [facility] [address] [place], [address] Platelets (Bld) [#/Vol] 225 10*3/uL Normal 150-450 [facility] Comment on above: Performed By: #### L 502.0250, L501.9985, L500.4050, L300.3900 #### [facility] [address] [place], [address] RBC (Bld) [#/Vol] 4.87 10*6/uL Normal 4.2-5.4 [facility] Comment on above: Performed By: #### L 502.0250, L501.9985, L500.4050, L300.3900 #### [facility] [address] [place], [address] RDW SD 40.7 fl Normal 35.1-43.9 [facility] Comment on above: Performed By: #### L 502.0250, L501.9985, L500.4050, L300.3900 #### [facility] [address] [place], [address] WBC (Bld) [#/Vol] 5.1 10*3/uL Normal 4.4-11.0 [facility] Comment on above: Performed By: #### L 502.0250, L501.9985, L500.4050, L300.3900 #### [facility] [address] [place], [address] Eosinophil percentageon 03-2 8-202 Eosinophils/100 WBC (Bld) 2.9 % 0-5 [facility] Erythrocyte distribution wid th ratioon 02-03-2025 Erythrocyte distribution width (RBC) [Ratio] 12.2 % 11.6-14.6 [facility] Erythrocyte distribution wid th standard deviationon 02-03-2025 Erythrocyte distribution width (RBC) [Entitic vol] 40.7 fL 35.1-43.9 [facility] Erythrocyte distribution width (RBC) [Ratio] 40.7 fl 35.1-43.9 [facility] Hematocrit Auto (Bld) [Volum e fraction]on 02-03-2025 Hematocrit (Bld) [Volume fraction] 44.1 % 37-47 [facility] Hemoglobin measurementon Hemoglobin (Bld) [Mass/Vol] 15.0 g/dL 12.0-15.0 [facility] Immature granulocytes/100 WB C Auto (Bld)on 02-03-2025 Immature granulocytes/100 WBC (Bld) 0.200 % 0.0-0.9 [facility] Comment on above: IG% - Immature Granu locytes (promyelocytes, myelocytes and metamyelocytes) > 1% indicates that a LEFT SHIFT is Present. Laboratory - Chemistry and C hemistry - challengeon 02-03-2025 AST [Catalytic activity/Vol] 22 U/L <32 [facility] Liver Profileon 02-03-2025 Albumin [Mass/Vol] 4.8 g/dL Normal 3.4-4.8 [facility] Comment on above: Performed By: #### L 502.0250, L501.9985, L500.4050, L300.3900 #### [facility] [address] [place], [address] ALK PHOS 68 U/L Normal 35-104 [facility] Comment on above: Performed By: #### L 502.0250, L501.9985, L500.4050, L300.3900 #### [facility] [address] [place], [address] ALT [Catalytic activity/Vol] 18 U/L Normal <=34 [facility] Comment on above: Performed By: #### L 502.0250, L501.9985, L500.4050, L300.3900 #### [facility] [address] [place], [address] AST [Catalytic activity/Vol] 22 U/L Normal <=31 [facility] Comment on above: Performed By: #### L 502.0250, L501.9985, L500.4050, L300.3900 #### [facility] [address] [place], [address] Bilirubin [Mass/Vol] 1.10 mg/dL Normal 0.00-1.30 [facility] Comment on above: Performed By: #### L 502.0250, L501.9985, L500.4050, L300.3900 #### [facility] [address] [place], [address] Bilirubin.direct [Mass/Vol] 0.43 mg/dL High 0.00-0.30 [facility] Comment on above: Performed By: #### L 502.0250, L501.9985, L500.4050, L300.3900 #### [facility] [address] [place], [address] Globulin (S) [Mass/Vol] 2.7 g/dL Normal 2.2-4.2 [facility] Comment on above: Performed By: #### L 502.0250, L501.9985, L500.4050, L300.3900 #### [facility] [address] [place], [address] T PROT 7.5 g/dL Normal 5.9-8.4 [facility] Comment on above: Performed By: #### L 502.0250, [id number], L500.4050, [id number] #### [facility] [address] [place], [address] Lymphocytes Auto (Unsp spec) [#/Vol]on 02-03-2025 Lymphocytes (Bld) [#/Vol] 1.67 10*3/uL 0.83-4.5 1 [facility] Lymphocytes/100 WBC Auto (Un sp spec)on 02-03-2025 Lymphocytes/100 WBC (Bld) 32.6 % 19-41 [facility] MCV (mean corpuscular volume ) determinationon 02-03-2025 MCV (RBC) [Entitic vol] 90.6 fL 81-99 [facility] Mean corpuscular hemoglobin (MCH) determinationon 02-03-2025 MCH (RBC) [Entitic mass] 30.8 pg 27.0-32.0 [facility] Mean corpuscular hemoglobin concentration (MCHC) determinationon 02-03-2025 MCHC (RBC) [Mass/Vol] 34.0 g/dL 32-36 [facility] Mean platelet volume determi nationon 02-03-2025 Platelet mean volume (Bld) [Entitic vol] 9.6 fL 6.2-12.0 [facility] Monocyte percentageon 2024 Monocytes/100 WBC (Bld) 9.6 % 0-10 [facility] Neutrophil percentageon 01-08 Neutrophils/100 WBC (Bld) 53.9 % 47-70 [facility] Nucleated red blood cell per centageon 02-03-2025 Nucleated RBC/100 WBC (Bld) [Ratio] 0 % 0-5 [facility] Platelet counton 02-03-2025 Platelets (Bld) [#/Vol] 225 10*3/uL 150-450 [facility] RBC Auto (Bld) [#/Vol]on RBC (Bld) [#/Vol] 4.87 10*6/uL 4.2-5.4 [facility] Serum globulin measurementon 02-03-2025 Globulin (S) [Mass/Vol] 2.7 g/dL 2.2-4.2 [facility] Serum or plasma alanine stoll otransferase (ALT) measurementon 02-03-2025 ALT [Catalytic activity/Vol] 18 U/L <35 [facility] Serum or plasma albumin nataliya urement (mass/volume)on 02-03-2025 Albumin [Mass/Vol] 4.8 g/dL 3.4-4.8 [facility] Serum or plasma alkaline ravi sphatase measurementon 02-03-2025 ALP [Catalytic activity/Vol] 68 U/L 35-104 [facility] Total proteinon 02-03-2025 Protein [Mass/Vol] 7.5 g/dL 5.9-8.4 [facility] White blood cell (WBC) count on 02-03-2025 WBC (Bld) [#/Vol] 5.1 10*3/uL 4.4-11.0 [facility] No Panel Informationon 10-26 POC SARS CoV-2 Antigen Negative [facility] Urgent Care Visit Reporton 1 12-27-2023 Urgent Care Visit Report [facility] [address], [address] [place] [address] OFFICE VISIT Date of Service: 10/26/24 MR#: [id number] Acct: [id number] Name: GARCIA MELGOZA Rep #: [id number] : 1945 Provider: LANIE Paez Age/Sex: 79/F Location: [facility] Status: Signed Intake Vital Signs 02/24/24 09:28 10/26/24 08:38 Height 5 ft 2 in BP 150/84 H Blood Pressure Location Rt brachial Position Sitting Respiration 16 Pulse 85 Pulse Source NIBP Temp 98.7 F Temp Source Oral Pulse Oximetry (%) 96 Oxygen Delivery Method room air Intake Visit Reasons: Cough 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, 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 Is patient in pain?: No Allergies No Known Allergies Allergy (Verified 10/26/24 08:38) Medications ???Medication ???Instructions ???Recorded ???Confirmed ???Type celecoxib 200 mg capsule 200 mg PO DAILY 11/17/18 02/24/24 History hydrochlorothiazide 25 mg tablet 25 mg PO DAILY 11/17/18 02/24/24 History lisinopril 10 mg tablet 20 mg PO DAILY 11/17/18 02/24/24 History magnesium oxide 500 mg capsule 500 mg PO BID 11/17/18 02/24/24 History omega-3 fatty acids-fish oil 340 1 ea PO TID 11/17/18 02/24/24 History mg-1,000 mg capsule pyridoxine (vitamin B6) 100 mg 200 mg PO BID 11/17/18 02/24/24 History tablet folic acid 400 mcg tablet 400 mcg PO DAILY 09/21/19 02/24/24 History cholecalciferol (vitamin D3) 25 25 mcg PO BID 04/29/21 02/24/24 History mcg (1,000 unit) tablet (Vitamin D3) glucosamine 750 fk-hiuwuz-vkr 2-C 1 tab PO BID 04/29/21 02/24/24 History 30 mg-D3 1,000 unit-silva 1 mg tablet (Glucosamine-Chondr oitin-MSM + vitD) turmeric root extract 500 mg 500 mg PO DAILY 04/29/21 02/24/24 History capsule tolterodine 4 mg capsule,extended 4 mg PO QHS 01/30/22 02/24/24 History release 24 hr ykverv-xzdohurz-syv lase 36,000 cap PO BID 08/13/22 02/24/24 History 36,000-114,000-180, 000 unit capsule,delay rel (Creon) benzonatate 100 mg capsule 100 mg PO TID PRN cough #20 caps 10/26/24 10/26/24 Rx methylprednisolone 4 mg tablets in See Rx Instructions PO PER PKG DIR 10/26/24 10/26/24 Rx a dose pack (Medrol (Patrice)) #21 tabs Is last menstrual period known: No Post menopausal: Yes Patient : No Have you fallen in the past year?: No Nurse's Note: cough, drainage x 1 week. denies RODGERS, mucus, fever, BA, congestion. 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 Ganglion cyst of finger of right hand Psoriasis Liver disease High cholesterol Gall stones Carpal tunnel syndrome Cataract Allergies Wears glasses Kidney stone Fatty liver Gastric reflux Shortness of breath on exertion Lymphocytic colitis Depression Numbness and tingling Arthritis Back problem Elevated bilirubin Fatigue Osteoarthritis Hypertension Surgical History History of surgical removal of ganglion cyst Hx of colonoscopy History of total right hip replacement ( 02/19/15) Hx of tonsillectomy History of carpal tunnel surgery Hx of colonoscopy Hx of cholecystectomy Family History Mother Arthritis Hypertension Father Heart disease Hypertension Diabetes Angina at rest Brother Pancreatic cancer Diabetes Heart disease Hypertension Cancer skin cancer Skin cancer Brother Diabetes Hypertension Social History Smoking Status: Never smoker second hand exposure: No alcohol intake: never substance use type: does not use caffeine: Yes what type of physical activity do you participate in: none frequency: does not exercise additional social history: Does Not Take Aspirin Does Not Take Ibuprofen HPI HPI 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, drainage Details: GARCIA MELGOZA, is a 79 F who presents to the office today for [facility] for approximately 1 week history of persistent cough w/ clear pnd. No c/o fever, RODGERS, myalgias, congestion/ runny nose, nausea, or diarrhea. Patient notes no complaints of chest pain or shortness of breath or dyspnea on exertion. Several close contacts recently dx???d w/ similar URI complaints. No hqug-hdv-bttpogo taken to assist. No other associated symptoms and no other alleviating/aggrava ting factors. ROS Const Constitutional: No other (As above) Exam Const General: cooperative, healthy appearing and no acute distress Orientation: alert, awake and oriented x3 HENMT Head: normal (more content not included)... Normal [facility] Metabolic Prof velmasesar 09-13-2024 Albumin [Mass/Vol] 3.9 g/dL Normal 3.2-5.0 [facility] Comment on above: Performed By: #### L 502.0250, L501.9985, L500.4050, L300.3900 #### [facility] [address] [place], [address] Albumin/Globulin [Mass ratio] 1.1 {ratio} Normal 0.9-2.4 [facility] Comment on above: Performed By: #### L 502.0250, L501.9985, L500.4050, L300.3900 #### [facility] [address] [place], [address] ALK P 61 U/L Normal 45-117 [facility] Comment on above: Performed By: #### L 502.0250, [id number], L500.4050, [id number] #### [facility] [address] [place], [address] ALT [Catalytic activity/Vol] 23 U/L Normal 13-56 [facility] Comment on above: Performed By: #### L 502.0250, [id number], L500.4050, L300.3900 #### [facility] [address] [place], [address] AST [Catalytic activity/Vol] 18 U/L Normal 15-37 [facility] Comment on above: Performed By: #### L 502.0250, [id number], L500.4050, L300.3900 #### [facility] [address] [place], [address] Bilirubin [Mass/Vol] 1.10 mg/dL High 0.20-1.00 [facility] Comment on above: Result Comment: For patients on eltrombopag therapy, use of Dimension [place] TBIL is not recommended. Performed By: #### L 502.0250, L501.9985, L500.4050, L300.3900 #### [facility] [address] [place], [address] BUN/CRE 30.0 RATIO High 10-20 [facility] Comment on above: Performed By: #### L 502.0250, [id number], L500.4050, L300.3900 #### [facility] [address] [place], [address] CA,Total 9.9 mg/dL Normal 8.5-10.1 [facility] Comment on above: Performed By: #### L 502.0250, [id number], L500.4050, L300.3900 #### [facility] [address] [place], [address] Chloride [Moles/Vol] 103 mmol/L Normal 98-107 [facility] Comment on above: Performed By: #### L 502.0250, L501.9985, L500.4050, L300.3900 #### [facility] [address] [place], [address] CO2 [Moles/Vol] 32.0 mmol/L Normal 21.0-32.0 [facility] Comment on above: Performed By: #### L 502.0250, [id number], L500.4050, L300.3900 #### [facility] [address] [place], [address] Creatinine [Mass/Vol] 0.83 mg/dL Normal 0.55-1.02 [facility] Comment on above: Result Comment: The validity of the calculated GFR GFRAA in patients over 70 years has not been determined. Clinical correlation is essential. Performed By: #### L 502.0250, L501.9985, L500.4050, L300.3900 #### [facility] [address] [place], [address] EST GFR - AA 85 mL/min Normal >60 [facility] Comment on above: Result Comment: Afri can Jamaican GFR Calc Performed By: #### L 502.0250, [id number], L500.4050, L300.3900 #### [facility] [address] [place], [address] GAP 4 Low 5-15 [facility] Comment on above: Performed By: #### L 502.0250, [id number], L500.4050, L300.3900 #### [facility] [address] [place], [address] GFR/1.73 sq M.predicted among non-blacks MDRD (S/P/Bld) [Vol rate/Area] 70 mL/min/{1.73_m2} Normal >60 [facility] Comment on above: Result Comment: Non- GFR Calc Performed By: #### L 502.0250, L501.9985, L500.4050, L300.3900 #### [facility] [address] [place], [address] Globulin (S) [Mass/Vol] 3.6 g/dL Normal 2.2-4.2 [facility] Comment on above: Performed By: #### L 502.0250, [id number], [id number], L300.3900 #### [facility] [address] [place], [address] Glucose [Mass/Vol] 95 mg/dL Normal 74-106 [facility] Comment on above: Performed By: #### L 502.0250, [id number], L500.4050, L300.3900 #### [facility] [address] [place], [address] Potassium [Moles/Vol] 4.0 mmol/L Normal 3.5-5.1 [facility] Comment on above: Performed By: #### L 502.0250, [id number], L500.4050, L300.3900 #### [facility] [address] [place], [address] Sodium [Moles/Vol] 138 mmol/L Normal 136-145 [facility] Comment on above: Performed By: #### L 502.0250, [id number], L500.4050, L300.3900 #### [facility] [address] [place], [address] T PROT 7.5 g/dL Normal 6.4-8.2 [facility] Comment on above: Performed By: #### L 502.0250, [id number], L500.4050, L300.3900 #### [facility] [address] [place], [address] Urea nitrogen [Mass/Vol] 25 mg/dL High 7-18 [facility] Comment on above: Performed By: #### L 502.0250, L501.9985, L500.4050, L300.3900 #### [facility] [address] [place], [address] Hemoglobin A1con 09-13-2024 HbA1c (Bld) [Mass fraction] 5.8 % High 3.8-5.6 [facility] Comment on above: Result Comment: Norm al < 5.7 % Prediabetic 5.7 - 6.4 % Diabetic >or= 6.5 % Please note range changes. Performed By: #### L 502.0250, L501.9985, L500.4050, L300.3900 #### [facility] [address] [place], [address] Microalb:Creat Ratio,Random URon 09-13-2024 Creatinine [Mass/Vol] 62.60 mg/dL Normal NO RANGE EST. [facility] Comment on above: Performed By: #### L 502.0250, L501.9985, L500.4050, L300.3900 #### [facility] [address] [place], [address] MALB:CRE 30.5 mg/g CRE High <30 mg/g CRE [facility] Comment on above: Performed By: #### L 502.0250, L501.9985, L500.4050, L300.3900 #### [facility] [address] [place], [address] MICROALBUMIN,UR 19.1 mg/L Normal NO RANGE EST. [facility] Comment on above: Performed By: #### L 502.0250, L501.9985, L500.4050, L300.3900 #### [facility] [address] [place], [address] Prothrombin Time w/INRon INR Coag (PPP) [Relative time] 1.0 {INR} Normal [facility] Comment on above: Performed By: #### L 502.0250, L501.9985, [id number], [id number] #### [facility] [address] [place], [address] PT Coag (PPP) [Time] 13.2 s Normal 11.7-14.9 [facility] Comment on above: Performed By: #### L 502.0250, L501.9985, [id number], [id number] #### [facility] [address] [place], [address] Absolute lymphocyte counton 07-21-2023 Lymphocytes Auto (Unsp spec) [#/Vol] 1.72 10*3/uL 0.83-4.51 [facility] Basophil percentageon 2022 Basophils/100 WBC (Bld) 0.5 % 0-1 [facility] Bilirubin [Mass/Vol] 1.10 mg/dL 0.20-1.00 [facility] Comment on above: For patients on eltr ombopag therapy, use of Dimension [place] TBIL is not recommended. Chloride [Moles/Vol] 105 mmol/L 98-107 [facility] Eosinophils/100 WBC (Bld) 2.1 % 0-5 [facility] Glucose [Mass/Vol] 107 mg/dL 74-106 [facility] Comment on above: Fasting Glucose resu lt from 100 to 125 mg/dL suggests IMPAIRED HOMEOSTASIS per A.D.A. criteria. Neutrophils (Bld) [#/Vol] 3.3 10*3/uL 2.0-7.7 [facility] Neutrophils/100 WBC (Bld) 57.9 % 47-70 [facility] Potassium [Moles/Vol] 3.7 mmol/L 3.5-5.1 [facility] Protein [Mass/Vol] 7.3 g/dL 6.4-8.2 [facility] Sodium [Moles/Vol] 140 mmol/L 136-145 [facility] WBC (Bld) [#/Vol] 5.6 10*3/uL 4.4-11.0 [facility] Blood erythrocytes count (nu mber/volume)on 07-21-2023 RBC (Bld) [#/Vol] 5.17 10*6/uL 4.2-5.4 [facility] Blood hemoglobin measurement (mass/volume)on 07-21-2023 Hemoglobin (Bld) [Mass/Vol] 15.8 g/dL 12.0-15.0 [facility] Blood lymphocytes/100 leukoc yteson 07-21-2023 Lymphocytes/100 WBC (Bld) 30.6 % 19-41 [facility] Blood monocytes/100 leukocyt eson 07-21-2023 Monocytes/100 WBC (Bld) 8.5 % 0-10 [facility] Blood platelet mean volumeon 07-21-2023 Platelet mean volume (Bld) [Entitic vol] 10.3 fL 6.2-12.0 [facility] Determination of erythrocyte mean corpuscular volume (MCV)on 07-21-2023 MCV (RBC) [Entitic vol] 92.6 fL 81-99 [facility] Hematocrit Auto (Bld) [Volum e fraction]on 07-21-2023 Hematocrit (Bld) [Volume fraction] 47.9 % 37-47 [facility] INR in Blood by Coagulation assayon 07-21-2023 INR Coag (Bld) [Relative time] 1.0 {INR} [facility] - Chemistry and C hemistry - challengeon 07-21-2023 ALP [Catalytic activity/Vol] 51 U/L 45-117 [facility] ALT [Catalytic activity/Vol] 21 U/L 13-56 [facility] CO2 [Moles/Vol] 31.0 mmol/L 21.0-32.0 [facility] Globulin (S) [Mass/Vol] 3.7 g/dL 2.2-4.2 [facility] Urea nitrogen/Creatinine [Mass ratio] 26.2 mg/mg 10-20 [facility] - Coagulationon 0 07-21-2023 PT Coag (PPP) [Time] 12.7 s 11.7-14.9 [facility] - Hematology and Cell countson 07-21-2023 Erythrocyte distribution width (RBC) [Entitic vol] 43.5 fL 35.1-43.9 [facility] Erythrocyte distribution width (RBC) [Ratio] 12.6 % 11.6-14.6 [facility] Immature granulocytes/100 WBC (Bld) 0.400 % 0.0-0.9 [facility] Comment on above: IG% - Immature Granu locytes (promyelocytes, myelocytes and metamyelocytes) > 1% indicates that a LEFT SHIFT is Present. MCH (RBC) [Entitic mass] 30.6 pg 27.0-32.0 [facility] Nucleated RBC/100 WBC (Bld) [Ratio] 0 % 0-5 [facility] MCHC Auto (RBC) [Mass/Vol]on 07-21-2023 MCHC (RBC) [Mass/Vol] 33.0 g/dL 32-36 [facility] No Panel InformationOrdered By: Maribell Hough on 07-21-2023 Urine Microalbumin/Creatinine Ratio 19.9 mg/g CRE <30 [facility] No Panel Informationon 07-21 Estimated GFR (MDRD) Amer 73 mL/min >60 [facility] Comment on above: GFR Calc Estimated GFR (MDRD) Non-Af Amer 60 mL/min >60 [facility] Comment on above: Non- GFR Calc Platelets bldon 07-21-2023 Platelets (Bld) [#/Vol] 228 10*3/uL 150-450 [facility] Serum or plasma albumin nataliya urement (mass/volume)on 07-21-2023 Albumin [Mass/Vol] 3.6 g/dL 3.2-5.0 [facility] Serum or plasma albumin/glob ulin mass ratioon 07-21-2023 Albumin/Globulin [Mass ratio] 1.0 {ratio} 0.9-2.4 [facility] Serum or plasma calcium nataliya urement (mass/volume)on 07-21-2023 Calcium [Mass/Vol] 9.7 mg/dL 8.5-10.1 [facility] Serum or plasma creatinine m easurement (mass/volume)on 07-21-2023 Creatinine [Mass/Vol] 0.96 mg/dL 0.55-1.02 [facility] Comment on above: The validity of the calculated GFR & GFRAA in patients over 70 years has not been determined. Clinical correlation is essential. Serum or plasma urea nitroge n measurement (mass/volume)on 07-21-2023 Urea nitrogen [Mass/Vol] 25 mg/dL 7-18 [facility] Thin prep Papanicolaou smear with manual screeningOrdered By: Maribell Hough on 07-21-2023 Thin prep Papanicolaou smear with manual screening 20.5 mg/L NO RANGE EST. [facility] Thin prep Papanicolaou smear with manual screeningon 07-21-2023 Thin prep Papanicolaou smear with manual screening 14 U/L 15-37 [facility] Thin prep Papanicolaou smear with manual screening 4 5-15 [facility] Urine creatinine measurement (mass/volume)Ordered By: Maribell Hough on 07-21-2023 Creatinine (U) [Mass/Vol] 103.00 mg/dL NO RANGE EST. [facility] Basophil percentageon 2021 Bilirubin [Mass/Vol] 1.30 mg/dL 0.20-1.00 [facility] Work Phone: Comment on above: For patients on eltr ombopag therapy, use of Dimension [place] TBIL is not recommended. Chloride [Moles/Vol] 107 mmol/L 98-107 [facility] Work Phone: Cholesterol [Mass/Vol] 203 mg/dL <200 [facility] Work Phone: Comment on above: <200 mg/dL Desirable 200-240 mg/dL Borderline >240 mg/dL High Risk Glucose [Mass/Vol] 117 mg/dL 74-106 [facility] Work Phone: Comment on above: Fasting Glucose resu lt from 100 to 125 mg/dL suggests IMPAIRED HOMEOSTASIS per A.D.A. criteria. Potassium [Moles/Vol] 3.9 mmol/L 3.5-5.1 [facility] Work Phone: Protein [Mass/Vol] 7.2 g/dL 6.4-8.2 [facility] Work Phone: Sodium [Moles/Vol] 142 mmol/L 136-145 [facility] Work Phone: Triglyceride [Mass/Vol] 122 mg/dL <199 [facility] Work Phone: Comment on above: The drugs N-Acetylcy steine and Metamizole may falsely depress this assay.Serum Triglycerides Reference Interval Normal <150 mg/dL Borderline high 150 - 199 mg/dL High 200 - 499 mg/dL Very High > or = 500 mg/dL WBC (Bld) [#/Vol] 4.4 10*3/uL 4.4-11.0 [facility] Work Phone: Blood erythrocytes count (nu mber/volume)on 07-01-2022 RBC (Bld) [#/Vol] 5.03 10*6/uL 4.2-5.4 [facility] Work Phone: Blood hemoglobin measurement (mass/volume)on 07-01-2022 Hemoglobin (Bld) [Mass/Vol] 15.7 g/dL 12.0-15.0 [facility] Work Phone: Blood platelet mean volumeon 07-01-2022 Platelet mean volume (Bld) [Entitic vol] 10.7 fL 6.2-12.0 [facility] Work Phone: Determination of erythrocyte mean corpuscular volume (MCV)on 07-01-2022 MCV (RBC) [Entitic vol] 91.1 fL 81-99 [facility] Work Phone: Hematocrit Auto (Bld) [Volum e fraction]on 07-01-2022 Hematocrit (Bld) [Volume fraction] 45.8 % 37-47 [facility] Work Phone: Laboratory - Chemistry and C hemistry - challengeon 07-01-2022 ALP [Catalytic activity/Vol] 47 U/L 45-117 [facility] Work Phone: ALT [Catalytic activity/Vol] 22 U/L 13-56 [facility] Work Phone: CO2 [Moles/Vol] 31.0 mmol/L 21.0-32.0 [facility] Work Phone: Globulin (S) [Mass/Vol] 3.5 g/dL 2.2-4.2 [facility] Work Phone: Urea nitrogen/Creatinine [Mass ratio] 24.6 mg/mg 10-20 [facility] Work Phone: Laboratory - Hematology and Cell countson 07-01-2022 Erythrocyte distribution width (RBC) [Entitic vol] 42.4 fL 35.1-43.9 [facility] Work Phone: Erythrocyte distribution width (RBC) [Ratio] 12.8 % 11.6-14.6 [facility] Work Phone: MCH (RBC) [Entitic mass] 31.2 pg 27.0-32.0 [facility] Work Phone: MCHC Auto (RBC) [Mass/Vol]on 07-01-2022 MCHC (RBC) [Mass/Vol] 34.3 g/dL 32-36 [facility] Work Phone: No Panel Informationon 07-01 Estimated GFR (MDRD) Amer 79 mL/min >60 [facility] Work Phone: Comment on above: GFR Calc Estimated GFR (MDRD) Non-Af Amer 65 mL/min >60 [facility] Work Phone: Comment on above: Non- GFR Calc Urine Microalbumin/Creatinine Ratio 27.3 mg/g CRE <30 [facility] Work Phone: Platelets bldon 07-01-2022 Platelets (Bld) [#/Vol] 221 10*3/uL 150-450 [facility] Work Phone: Serum or plasma albumin nataliya urement (mass/volume)on 07-01-2022 Albumin [Mass/Vol] 3.7 g/dL 3.2-5.0 [facility] Work Phone: Serum or plasma albumin/glob ulin mass ratioon 07-01-2022 Albumin/Globulin [Mass ratio] 1.1 {ratio} 0.9-2.4 [facility] Work Phone: Serum or plasma calcium nataliya urement (mass/volume)on 07-01-2022 Calcium [Mass/Vol] 9.5 mg/dL 8.5-10.1 [facility] Work Phone: Serum or plasma cholesterol in HDL measurement (mass/volume)on 07-01-2022 Cholesterol in HDL [Mass/Vol] 70 mg/dL >40 [facility] Work Phone: Comment on above: The drugs N-Acetylcy steine and Metamizole may falsely depress this assay. Reference Range HDL <40 mg/dL Low HDL Cholesterol HDL >or= 60 mg/dL High HDL Cholesterol Serum or plasma cholesterol in VLDL measurement (mass/volume)on 07-01-2022 Cholesterol in VLDL [Mass/Vol] 24 mg/dL 5-40 [facility] Work Phone: Serum or plasma creatinine m easurement (mass/volume)on 07-01-2022 Creatinine [Mass/Vol] 0.89 mg/dL 0.55-1.02 [facility] Work Phone: Comment on above: The validity of the calculated GFR & GFRAA in patients over 70 years has not been determined. Clinical correlation is essential. Serum or plasma low density lipoprotein (LDL) cholesterol measurement (mass/volume)on 07-01-2022 Cholesterol in LDL [Mass/Vol] 109 mg/dL 0-130 [facility] Work Phone: Serum or plasma urea nitroge n measurement (mass/volume)on 07-01-2022 Urea nitrogen [Mass/Vol] 22 mg/dL 7-18 [facility] Work Phone: Thin prep Papanicolaou smear with manual screeningon 07-01-2022 Thin prep Papanicolaou smear with manual screening 18 U/L 15-37 [facility] Work Phone: Thin prep Papanicolaou smear with manual screening 4 5-15 [facility] Work Phone: Thin prep Papanicolaou smear with manual screening 37.1 mg/L NO RANGE EST. [facility] Work Phone: Urine creatinine measurement (mass/volume)on 07-01-2022 Creatinine (U) [Mass/Vol] 136.00 mg/dL NO RANGE EST. [facility] Work Phone: Whole blood hemoglobin A1c/t otal hemoglobin ratio (mass fraction)on 07-01-2022 HbA1c (Bld) [Mass fraction] 5.8 % 3.8-5.6 [facility] Work Phone: Comment on above: Normal < 5.7 % Predi abetic 5.7 - 6.4 % Diabetic >or= 6.5 % Please note range changes. No Panel Informationon 04-12 Stool Calprotectin 317 ug/g 0-120 [facility] Work Phone: Comment on above: Concentration Interp retation Follow-Up<16 - 50 ug/g Normal None>50 -120 ug/g Borderline Re-evaluate in 4-6 weeks >120 ug/g Abnormal Repeat as clinically indicated Stool Pancreatic Elastase 56 >200 [facility] Work Phone: Comment on above: Result Units: ug Selam st./gResults verified by repeat testing Severe Pancreatic Insufficiency: <100 Moderate Pancreatic Insufficiency: 100 - 200 Normal: >200Performed at: - [facility] [id number] Director: Laron Melendez MD, Phone: [phone] Stool pHon 04-12-2022 pH (Stl) 6.5 7.0-7.5 [facility] Work Phone: Comment on above: Performed at: [address] [id number] Director: Laron Melendez MD, Phone: [phone] at: - [facility] [address] [id number] Director: Thong Blunt PhD, Phone: [phone] Absolute lymphocyte counton 12-16-2021 Lymphocytes Auto (Unsp spec) [#/Vol] 1.84 10*3/uL 0.83-4.51 [facility] Work Phone: Basophil percentageon 2021 Basophils/100 WBC (Bld) 0.8 % 0-1 [facility] Work Phone: Bilirubin [Mass/Vol] 1.00 mg/dL 0.20-1.00 [facility] Work Phone: Comment on above: For patients on eltr ombopag therapy, use of Dimension [place] TBIL is not recommended. Chloride [Moles/Vol] 105 mmol/L 98-107 [facility] Work Phone: Cholesterol [Mass/Vol] 217 mg/dL <200 [facility] Work Phone: Comment on above: <200 mg/dL Desirable 200-240 mg/dL Borderline >240 mg/dL High Risk Eosinophils/100 WBC (Bld) 5.1 % 0-5 [facility] Work Phone: Glucose [Mass/Vol] 118 mg/dL 74-106 [facility] Work Phone: Comment on above: Fasting Glucose resu lt from 100 to 125 mg/dL suggests IMPAIRED HOMEOSTASIS per A.D.A. criteria. Neutrophils (Bld) [#/Vol] 2.5 10*3/uL 2.0-7.7 [facility] Work Phone: Neutrophils/100 WBC (Bld) 50.1 % 47-70 [facility] Work Phone: Potassium [Moles/Vol] 4.0 mmol/L 3.5-5.1 [facility] Work Phone: Protein [Mass/Vol] 7.4 g/dL 6.4-8.2 [facility] Work Phone: Sodium [Moles/Vol] 139 mmol/L 136-145 [facility] Work Phone: Triglyceride [Mass/Vol] 111 mg/dL [facility] Work Phone: Comment on above: The drugs N-Acetylcy steine and Metamizole may falsely depress this assay.Serum Triglycerides Reference Interval Normal <150 mg/dL Borderline high 150 - 199 mg/dL High 200 - 499 mg/dL Very High > or = 500 mg/dL WBC (Bld) [#/Vol] 5.1 10*3/uL 4.4-11.0 [facility] Work Phone: Blood erythrocytes count (nu mber/volume)on 12-16-2021 RBC (Bld) [#/Vol] 5.12 10*6/uL 4.2-5.4 [facility] Work Phone: Blood hemoglobin measurement (mass/volume)on 12-16-2021 Hemoglobin (Bld) [Mass/Vol] 15.3 g/dL 12.0-15.0 [facility] Work Phone: Blood lymphocytes/100 leukoc yteson 12-16-2021 Lymphocytes/100 WBC (Bld) 36.3 % 19-41 [facility] Work Phone: Blood monocytes/100 leukocyt eson 12-16-2021 Monocytes/100 WBC (Bld) 7.3 % 0-10 [facility] Work Phone: Blood platelet mean volumeon 12-16-2021 Platelet mean volume (Bld) [Entitic vol] 10.4 fL 6.2-12.0 [facility] Work Phone: Determination of erythrocyte mean corpuscular volume (MCV)on 12-16-2021 MCV (RBC) [Entitic vol] 91.4 fL 81-99 [facility] Work Phone: Hematocrit Auto (Bld) [Volum e fraction]on 12-16-2021 Hematocrit (Bld) [Volume fraction] 46.8 % 37-47 [facility] Work Phone: Laboratory - Chemistry and C hemistry - challengeon 12-16-2021 ALP [Catalytic activity/Vol] 48 U/L 45-117 [facility] Work Phone: ALT [Catalytic activity/Vol] 24 U/L 13-56 [facility] Work Phone: CO2 [Moles/Vol] 30.0 mmol/L 21.0-32.0 [facility] Work Phone: Globulin (S) [Mass/Vol] 3.7 g/dL 2.2-4.2 [facility] Work Phone: Urea nitrogen/Creatinine [Mass ratio] 22.9 mg/mg 10-20 [facility] Work Phone: Laboratory - Hematology and Cell countson 12-16-2021 Erythrocyte distribution width (RBC) [Entitic vol] 42.6 fL 35.1-43.9 [facility] Work Phone: Erythrocyte distribution width (RBC) [Ratio] 12.7 % 11.6-14.6 [facility] Work Phone: Immature granulocytes/100 WBC (Bld) 0.400 % 0.0-0.9 [facility] Work Phone: Comment on above: IG% - Immature Granu locytes (promyelocytes, myelocytes and metamyelocytes) > 1% indicates that a LEFT SHIFT is Present. MCH (RBC) [Entitic mass] 29.9 pg 27.0-32.0 [facility] Work Phone: Nucleated RBC/100 WBC (Bld) [Ratio] 0 % 0-5 [facility] Work Phone: MCHC Auto (RBC) [Mass/Vol]on 12-16-2021 MCHC (RBC) [Mass/Vol] 32.7 g/dL 32-36 [facility] Work Phone: No Panel Informationon 12-16 Estimated GFR (MDRD) Amer 66 mL/min >60 [facility] Work Phone: Comment on above: GFR Calc Estimated GFR (MDRD) Non-Af Amer 54 mL/min >60 [facility] Work Phone: Comment on above: Non- GFR Calc Thyroid Stimulating Hormone (TSH) 3.65 uIU/mL 0.358-3.74 [facility] Work Phone: Urine Microalbumin/Creatinine Ratio 59.4 mg/g CRE <30 [facility] Work Phone: Platelets bldon 12-16-2021 Platelets (Bld) [#/Vol] 224 10*3/uL 150-450 [facility] Work Phone: Serum or plasma C reactive p rotein measurement (mass/volume)on 12-16-2021 CRP [Mass/Vol] mg/L 0.0-3.0 [facility] Work Phone: Comment on above: C-Reactive Protein ( CRP) provides useful information for thediagnosis, therapy and monitoring of inflammatory processesand associated diseases. For the evaluation of Relative Riskfor Cardiovascular Disease, a High Sensitivity CRP (HSCRP)should be ordered. Serum or plasma albumin nataliya urement (mass/volume)on 12-16-2021 Albumin [Mass/Vol] 3.7 g/dL 3.2-5.0 [facility] Work Phone: Serum or plasma albumin/glob ulin mass ratioon 12-16-2021 Albumin/Globulin [Mass ratio] 1.0 {ratio} 0.9-2.4 [facility] Work Phone: Serum or plasma calcium nataliya urement (mass/volume)on 12-16-2021 Calcium [Mass/Vol] 9.2 mg/dL 8.5-10.1 [facility] Work Phone: Serum or plasma cholesterol in HDL measurement (mass/volume)on 12-16-2021 Cholesterol in HDL [Mass/Vol] 71 mg/dL [facility] Work Phone: Comment on above: The drugs N-Acetylcy steine and Metamizole may falsely depress this assay. Reference Range HDL <40 mg/dL Low HDL Cholesterol HDL >or= 60 mg/dL High HDL Cholesterol Serum or plasma cholesterol in VLDL measurement (mass/volume)on 12-16-2021 Cholesterol in VLDL [Mass/Vol] 22 mg/dL 5-40 [facility] Work Phone: Serum or plasma creatinine m easurement (mass/volume)on 12-16-2021 Creatinine [Mass/Vol] 1.05 mg/dL 0.55-1.02 [facility] Work Phone: Comment on above: The validity of the calculated GFR & GFRAA in patients over 70 years has not been determined. Clinical correlation is essential. Serum or plasma low density lipoprotein (LDL) cholesterol measurement (mass/volume)on 12-16-2021 Cholesterol in LDL [Mass/Vol] 124 mg/dL 0-130 [facility] Work Phone: Serum or plasma urea nitroge n measurement (mass/volume)on 12-16-2021 Urea nitrogen [Mass/Vol] 24 mg/dL 7-18 [facility] Work Phone: Thin prep Papanicolaou smear with manual screeningon 12-16-2021 Thin prep Papanicolaou smear with manual screening 17 U/L 15-37 [facility] Work Phone: Thin prep Papanicolaou smear with manual screening 4 5-15 [facility] Work Phone: Thin prep Papanicolaou smear with manual screening 68.3 mg/L NO RANGE EST. [facility] Work Phone: Urine creatinine measurement (mass/volume)on 12-16-2021 Creatinine (U) [Mass/Vol] 115.00 mg/dL NO RANGE EST. [facility] Work Phone: Whole blood hemoglobin A1c/t otal hemoglobin ratio (mass fraction)on 12-16-2021 HbA1c (Bld) [Mass fraction] 5.8 % 3.8-5.6 [facility] Work Phone: Comment on above: Normal < 5.7 % Predi abetic 5.7 - 6.4 % Diabetic >or= 6.5 % Please note range changes. Vital Signs Date Time Vital Sign Value Performing Clinician Faci lity 08-01-2025 10:24-0400 Body height 157.[address] Maribell Hough MD Work Phone: [facility] 08-01-2025 10:24-0400 Body mass index (BMI) [Ratio] 33.8 kg/m2 Dr. Maribell Hough MD Work Phone: [facility] 08-01-2025 10:24-0400 Body temperature 98.6 [degF] Dr. Maribell Hough MD Work Phone: [facility] 08-01-2025 10:24-0400 Body weight 83.[address] Maribell Hough MD Work Phone: [facility] 08-01-2025 10:24-0400 Diastolic blood pressure 86 mm[Hg] Dr. Maribell Hough MD Work Phone: [facility] 08-01-2025 10:24-0400 Heart rate 84 /min Dr. Maribell Hough MD Work Phone: [facility] 08-01-2025 10:24-0400 SaO2% (BldA) [Mass fraction] 98 % Dr. Maribell Hough MD Work Phone: [facility] 08-01-2025 10:24-0400 Systolic blood pressure 150 mm[Hg] Dr. Maribell Hough MD Work Phone: [facility] 10-26-2024 08:38-0500 Body temperature 98.7 [degF] Dr. Maribell Hough MD Work Phone: [facility] 10-26-2024 08:38-0500 Diastolic blood pressure 84 mm[Hg] Dr. Maribell Hough MD Work Phone: [facility] 10-26-2024 08:38-0500 Heart rate 85 /min Dr. Maribell Hough MD Work Phone: [facility] 10-26-2024 08:38-0500 Respiratory rate 16 /min Dr. Maribell Hough MD Work Phone: [facility] 10-26-2024 08:38-0500 SaO2% (BldA) [Mass fraction] 96 % Dr. Maribell Hough MD Work Phone: [facility] 10-26-2024 08:38-0500 Systolic blood pressure 150 mm[Hg] Dr. Maribell Hough MD Work Phone: [facility] 11-19-2022 08:42-0500 Body height 160.[address] Maribell Hough Work Phone: [facility] Work Phone: 09-02-2022 13:35-0400 Body temperature 97.6 [degF] Dr. Maribell Hough Work Phone: [facility] Work Phone: 09-02-2022 13:35-0400 Heart rate 69 /min Dr. Maribell Hough Work Phone: [facility] Work Phone: 09-02-2022 13:35-0400 Respiratory rate 16 /min Dr. Maribell Hough Work Phone: [facility] Work Phone: 09-02-2022 13:35-0400 SaO2% (BldA) [Mass fraction] 98 % Dr. Maribell Hough Work Phone: [facility] Work Phone: 08-26-2022 10:06-0400 Body temperature 98 [degF] Dr. Maribell Hough Work Phone: [facility] Work Phone: 08-26-2022 10:06-0400 Heart rate 67 /min Dr. Maribell Hough Work Phone: [facility] Work Phone: 08-26-2022 10:06-0400 Respiratory rate 16 /min Dr. Maribell Hough Work Phone: [facility] Work Phone: 08-26-2022 10:06-0400 SaO2% (BldA) [Mass fraction] 98 % Dr. Maribell Hough Work Phone: [facility] Work Phone: 08-20-2022 10:45-0400 Body temperature 97.9 [degF] Dr. Maribell Hough Work Phone: [facility] Work Phone: 08-20-2022 10:45-0400 Heart rate 56 /min Dr. Maribell Hough Work Phone: [facility] Work Phone: 08-20-2022 10:45-0400 Respiratory rate 16 /min Dr. Maribell Hough Work Phone: [facility] Work Phone: 08-20-2022 10:45-0400 SaO2% (BldA) [Mass fraction] 97 % Dr. Maribell Hough Work Phone: [facility] Work Phone: 08-20-2022 09:05-0400 Diastolic blood pressure 54 mm[Hg] Dr. Maribell Hough Work Phone: [facility] Work Phone: 08-20-2022 09:05-0400 Systolic blood pressure 121 mm[Hg] Dr. Maribell Hough Work Phone: [facility] Work Phone: 08-20-2022 06:31-0400 Body height 160.[address] Maribell Hough Work Phone: [facility] Work Phone: 08-20-2022 06:31-0400 Body mass index (BMI) [Ratio] 31.6 kg/m2 Dr. Maribell Hough Work Phone: [facility] Work Phone: 08-20-2022 06:31-0400 Body weight [address] Maribell Hough Work Phone: [facility] Work Phone: 04-12-2022 08:59-0400 Body height 160.[address] Maribell Hough Work Phone: [facility] Work Phone: 02-04-2022 09:04-0400 Body height 160.[address] Maribell Hough Work Phone: [facility] Work Phone: 02-04-2022 09:04-0400 Body weight 87.[address] Maribell Hough Work Phone: [facility] Work Phone: 12-24-2021 13:21-0500 Body mass index (BMI) [Ratio] 34 kg/m2 Dr. Maribell Hough Work Phone: [facility] Work Phone: 12-24-2021 13:21-0500 Body temperature 98 [degF] Dr. Maribell Hough Work Phone: [facility] Work Phone: 12-24-2021 13:21-0500 Body weight 87.[address] Maribell Hough Work Phone: [facility] Work Phone: 12-24-2021 13:21-0500 Diastolic blood pressure 90 mm[Hg] Dr. Maribell Hough Work Phone: [facility] Work Phone: 12-24-2021 13:21-0500 Heart rate 88 /min Dr. Maribell Hough Work Phone: [facility] Work Phone: 12-24-2021 13:21-0500 Respiratory rate 16 /min Dr. Maribell Hough Work Phone: [facility] Work Phone: 12-24-2021 13:21-0500 SaO2% (BldA) [Mass fraction] 97 % Dr. Maribell Hough Work Phone: [facility] Work Phone: 12-24-2021 13:21-0500 Systolic blood pressure 154 mm[Hg] Dr. Maribell Hough Work Phone: [facility] Work Phone: Encounters Encounter Date Encounter Type Care Provider Facility Start: 08-16-2025 End: 08-16-2025 ambulatory Maribell Hough Facility:[facility] Start: 08-01-2025 End: 08-01-2025 Patient encounter procedure Tao Espinoza [place] Work Phone: Start: 08-01-2025 End: 08-01-[address] Maribell Hough MD Work Phone: -[facility] Start: 05-01-2025 End: 05-01-[address] Maribell Hough MD Work Phone: -[facility] Start: 05-01-2025 End: 05-01-[address] Maribell Hough MD -[facility] Start: 05-01-2025 End: 05-01-2025 ambulatory Maribell Hough Facility:[facility] Start: 02-03-2025 End: 02-03-[address] Maribell Hough MD Work Phone: [facility] Work Phone: Start: 02-03-2025 End: 02-03-[address] Maribell Hough MD Work Phone: -[facility] Work Phone: Start: 02-03-2025 End: 02-03-2025 ambulatory DAVID OBRIEN Facility:[facility] Start: 10-26-2024 End: 10-26-2024 Patient encounter procedure Tao Espinoza [place] -[facility] Work Phone: Start: 10-26-2024 End: 10-26-2024 ambulatory Maribell Hough Facility:[facility] Start: 09-13-2024 End: 09-13-2024 ambulatory Maribell Hough Facility:[facility] Start: 07-21-2023 End: 07-21-2023 ambulatory [facility] Work Phone: Start: 07-21-2023 End: 07-21-2023 Patient encounter procedure [facility] Work Phone: Start: 11-19-2022 End: 11-19-[address] Maribell Hough Work Phone: [facility] Work Phone: Start: 11-19-2022 End: 11-19-[address] Maribell Hough Work Phone: [facility] Start: 09-02-2022 End: 09-02-[address] Maribell Hough Work Phone: [facility] Start: 08-26-2022 End: 08-26-[address] Maribell Hough Work Phone: [facility] Start: 08-20-2022 Non-patient / Non-visit Dr. Gaurang Hough Work Phone: [facility] Start: 08-20-2022 End: 08-20-2022 Admission to same day surgery center Dr. Maribell Hough Work Phone: [facility] Start: 08-20-2022 End: 08-20-[address] Maribell Hough Work Phone: [facility] Work Phone: Start: 08-19-2022 Non-patient / Non-visit Dr. Gaurang Hough Work Phone: [facility] Start: 08-04-2022 End: 08-04-[address] Maribell Hough Work Phone: [facility] Start: 07-01-2022 End: 07-01-2022 ambulatory [facility] Work Phone: Start: 07-01-2022 End: 07-01-2022 Patient encounter procedure [facility] Start: 04-12-2022 End: 04-12-[address] [facility] Start: 2022 End: [address] Maribell Hough Work Phone: [facility] Start: 12-24-2021 End: 12-24-[address] Maribell Hough [facility] Phone[facility] Start: 12-24-2021 End: 12-24-[address] Maribell Hough Work Phone: [facility] Start: 12-16-2021 End: 12-16-[address] [facility] Hough [facility] Procedures Date Procedure Procedure Detail Performing Clinician Start: 05-01-2025 Urine microalbumin/creatinine ratio measurement Dr. Maribell Hough MD Work Phone: Start: 11-19-2022 Dual energy X-ray absorptiometry Dr. Maribell Hough Work Phone: Start: 11-19-2022 Screening mammography Zena Hough Work Phone: Start: 08-20-2022 Excision, Lesion,Ski n w/ Skin Flap (Right) Dr. Maribell Hough Work Phone: Start: 08-04-[address] Maribell Hough Work Phone: Start: 08-04-[address] Maribell Hough Work Phone: Start: 12-24-2021 Diagnostic radiograp hy of finger Dr. Maribell Hough Work Phone: H/O: surgery History of surgi micah removal of ganglion cyst Dr. Maribell Hough Work Phone: Comment on above: excision 6 mm ulcera daily mucous cyst radial aspect right index finger near eponychial fold with dorsal advancement skin flap reconstruction (6 cm2) - 08/20/22 History of cholecystectomy Hx of cholecystectomy Dr. Maribell Hough Work Phone: History of decompres cole of median nerve History of carpal tunnel surgery Dr. Maribell Hough Work Phone: Comment on above: bilateral History of tonsillectomy Hx of tonsillect joe Dr. Maribell Hough Work Phone: Plan of Treatment Date Care Activity Detail Author Start: 08-20-2022 Adjt tis trns/reargm t f/c/c/m/n/a/g/h/f 10sqcm/< TIS TRNFR F/C/C/M/N/A/G/H/F [facility] Work Phone: Start: 08-20-2022 Anes nerve muscle td n fascia&bursa forearm wrist ANESTH LOWER ARM SURGERY [facility] Work Phone: Start: 08-20-2022 Exc lesion tdn shth/ jt capsl hand/fngr REMOVE TENDON SHEATH LESION [facility] Work Phone: Start: 08-20-2022 Patient discharge [facility] Work Phone: Patient referral [facility] Work Phone: Immunizations Immunization Date Immunization Notes Care Provider Fa cilijosé 02-05-2021 Covid (Pfizer) Dr. Maribell waggoner Work Phone: [facility] 01-15-2021 Covid (Pfizer) Dr. Maribell waggoner Work Phone: [facility] 11-17-2018 tetanus toxoid, redu bhavna diphtheria toxoid, and acellular pertussis vaccine, adsorbed Dr. Maribell Hough Work Phone: [facility] Payers Date Payer Category Payer Self-pay [id number] 2014 Private Health Insurance [id number] 2011 Medicare [id number] Medicare [id number] Unknown [id number] Unknown [id number] Unknown [id number] Unknown [id number] 2.16.8 [id number] Unknown [id number] 2.16.8 [id number] Unknown [id number] 2.16.8 [id number] Social History Date Type Detail Facility Start: 01-30-2022 End: 09-02-2022 Tobacco smoking status NHIS Unknown if ever smoked [facility] Start: 1945 Sex Assigned At Female [facility] Start: 02-24-2024 Tobacco smoking stat us NHIS Never smoked tobacco (finding) [facility] Start: 02-07-2025 Sex Female (finding) [facility] Sex Female [facility] Goals Date Patient Goal Desired Activity /State Mental Status Date Assessment Result Facility 08-20-2022 Cognitive function Voice/Name [facility] Work Phone: Progress note 08-01-2025 Note Date & Type Note Facility 08-01-2025 Progress note [facility] Evaluation note Note Date & Type Note Facility Evaluation note Diagnosis Onset Date 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 [facility] Work Phone: Evaluation note Note Date & Type Note Facility Evaluation note No assessment information availa ble [facility] Work Phone: Evaluation note Note Date & Type Note Facility Evaluation note Diagnosis Onset Date 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 Ganglion cyst of finger of right hand chronic Heberden's nodes of both hands [facility] Work Phone: Hospital Discharge instructions Note Date & Type Note Facility Hospital Discharge instructions Additional Instructions Implant Used?: No [facility] Work Phone: Progress note Note Date & Type Note Facility Progress note Note Date/Time August 01, 2025 10:46am [facility] [address], [address] [place] [address] OFFICE VISIT Date of Service: 08/01/25 MR#: [id number] Acct: [id number] Name: GARCIA MELGOZA Rep #: [id number] : 1945 Provider: LANIE Paez Age/Sex: 80/F Location: [email or web address] Status: Signed Intake Vital Signs 02/24/24 09:28 08/01/25 10:24 Height 5 ft 2 in 5 ft 2 in Weight: 185 lb BMI 33.8 BP 150/86 H Blood Pressure Location Lt brachial Position Sitting Pulse 84 Pulse Source Monitor Temp 98.6 F Temp Source Oral Pulse Oximetry (%) 98 Oxygen Delivery Method room air Intake Visit Reasons: CONGESTION, COUGH Chief Complaint: Cough, Congestion Accompanied by: Self Allergies No Known Allergies Allergy (Verified 08/01/25 10:22) Medications ?Medication ?Instructions ?Recorded ?Confirmed ?Type hydrochlorothiazide 25 mg tablet 25 mg PO DAILY 08/01/25 History lisinopril 10 mg tablet 20 mg PO DAILY 11/17/1807/11 History magnesium oxide 500 mg capsule 500 mg PO BID 11/17/18 08/01/25 History omega-3 fatty acids-fish oil 340 1 ea PO TID 11/17/18 08/01/25 History mg-1,000 mg capsule pyridoxine (vitamin B6) 100 mg 200 mg PO BID 11/17/18 08/01/25 History tablet folic acid 400 mcg tablet 400 mcg PO DAILY 09/21/19 History cholecalciferol (vitamin D3) 25 25 mcg PO BID 04/29/21 08/01/25 History mcg (1,000 unit) tablet (Vitamin D3) glucosamine 750 rk-mgrmlf-kwn 2-C 1 tab PO BID 1 08/01/25 History 30 mg-D3 1,000 unit-silva 1 mg tablet (Ojbkovzrrcl-Ppjqbbpkmuq-PGR + vitD) turmeric root extract 500 mg 500 mg PO DAILY 04/29/21 08/01/25 History capsule tolterodine 4 mg capsule,extended 4 mg PO QHS 01/30/22 08/01/25 History release 24 hr nzzvuj-plrsjdvj-cvppmir 36,000 cap PO BID 08/13/22 0 08/01/25 History 36,000-114,000-180,000 unit capsule,delay rel (Creon) amoxicillin 875 mg tablet 875 mg PO BID #20 tabs 08/0108/01/25 Rx Have you fallen in the past year?: No Nurse's Note: Cough, congestion, sneezing. Started before the fair was going on, but cough andcongestion stayed. 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 Ganglion cyst of finger of right hand Psoriasis Liver disease High cholesterol Gall stones Carpal tunnel syndrome Cataract Allergies Wears glasses Kidney stone Fatty liver Gastric reflux Shortness of breath on exertion Lymphocytic colitis Depression Numbness and tingling Arthritis Back problem Elevated bilirubin Fatigue Osteoarthritis Hypertension Surgical History History of surgical removal of ganglion cyst Hx of colonoscopy History of total right hip replacement (~02/19/15) Hx of tonsillectomy History of carpal tunnel surgery Hx of colonoscopy Hx of cholecystectomy Family History Mother Arthritis Hypertension Father Heart disease Hypertension Diabetes Angina at rest Brother Pancreatic cancer Diabetes Heart disease Hypertension Cancer skin cancer Skin cancer Brother Diabetes Hypertension Social History Smoking Status: Never smoker second hand exposure: No alcohol intake: never substance use type: does not use caffeine: Yes what type of physical activity do you participate in: none frequency: does not exercise additional social history: Does Not Take Aspirin Does Not Take Ibuprofen HPI HPI Chief Complaint: Cough, Congestion Details: GARCIA MELGOZA, is a 80 F who presents to the [facility] today [facility] for approximately 3-week history of progressively worsening forehead pressure/congestion with purulent postnasal drip, cough, and sore throat. No complaints of fever, chills, myalgias, fatigue, runny nose, or nausea/vomiting/diarrhea. No complaints of chest pain/shortness of breath/dyspnea on exertion. No close contacts with similar complaints. No other associated symptoms and no other alleviating/aggravating factors. ROS Const Constitutional: No other (as above) Exam Const General: cooperative, healthy appearing and no acute distress Orientation: alert, awake [facility] Head: normal to inspection Ears: hearing grossly normal bilaterally, external ears normal, TM's normal bilaterally and EAC's normal Nose: external nose normal, nares normal, septum normal and no nasal discharge Face and sinus: normal facial exam, sinuses tender (bilateral frontal) and facesymmetric Mouth: oral mucosae normal, lip normal, tongue normal and oropharynx normal Throat: posterior oropharynx normal, tonsils normal, uvula midline and postnasal drainage (scant amount purulent) Eyes General: appearance normal, both eyes and all related structures Neck Neck: normal visual inspection, full ROM, no meningeal signs, supple and lymphadenopathy (Bilateral anterior cervical lymph node swelling/tender to palpation) Neck mass: No Thyroid: thyroid normal Chest Chest palpation & inspection: normal inspection of the chest Resp Effort & Inspection: normal respiratory effort and able to speak in complete sentences Auscultation: Bilateral: Clear to Auscultation Cardio Palpation: normal PMI Rate: regular rate Rhythm: regular rhythm Heart Sounds: S1 normal, S2 normal Pulses: radial pulses present GI Inspection: normal to inspection Skin General: no rashes or lesions noted Neuro General: patient alert, patient awake Cognition: normal cognition Speech: speech normal Psych Appearance: grossly normal Mental Status: mental status grossly normal Mood: congruent mood Affect: normal affect Speech and Movement: speech and movement normal Attitude: cooperative Diagnoses Acute frontal sinusitis, unspecified J01.10 Assessment and Plan Assessment and Plan (1) Acute frontal sinusitis, unspecified: Status: Acute Plan: Amoxicillin as prescribed today. Supportive measures as instructed today; Work/school excuse offered. Follow-up with PCP in 3 to 5 days should symptoms not improve, sooner should symptoms worsen or any other concerns develop. Patient states acknowledging understanding all the above. Coding Level of Care Code Off vis,est,level 3 Assessment and Plan Assessment and Plan Medications: New amoxicillin 875 mg PO BID 20 tabs 0RF Clinical Quality Measures Falls Risk Screening/Assistive Devices Have you fallen in the past year?: No 08/01/25 1048 <Electronically signed by Tao DELA CRUZ> Date _ Tao DELA CRUZ Cosigner Signature: Date (if applicable) CC: ~ [facility] Work Phone: Reason for referral (narrative) Note Date & Type Note Facility Reason for referral (narrative) No reason for referral information available [facility] Work Phone: Chief Complaint and Reason for Visit Chief Complaint Consult EXCISION CYST, RT FINGER, Reason for Visit Acquired deformity o f nail of finger Ganglion cyst of finger of right hand Heberden's nodes of both hands Chief Complaint ELEVATED BILLIRUBIN excision ulcerated mucus cyst index finger excision ulcerated mucus cyst index finger Chief Complaint ELEVATED BILLIRUBIN excision ulcerated mucus cyst index finger excision ulcerated mucus cyst index finger excision ulcerated mucus cyst index finger POST OP CK POST OP CK SCREENING/OSTEOPOROSIS Reason for Visit Acquired deformity o f nail of finger Ganglion cyst of finger of right hand 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 Ganglion cyst of finger of right hand 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 Ganglion cyst of finger of right hand Heberden's nodes of both hands Chief Complaint E ORDER FOR MARIBELL SMI TH Chief Complaint Admit Date Cough October 26, 2024 8:28am Lymphocytic colitis February 03, 2025 11: 09am Chief Complaint Admit Date Lymphocytic colitis February 03, 2025 11: 09am Chief Complaint Admit Date CONGESTION, COUGH August 01, 2025 10:20am Family History No Family History Records Found Relationship Condition Age at Onset Recorded Date/T nichelle mother Arthritis Unknown Hypertension Unknown father Cardiac disease Unknown Diabetes mellitus Unknown Angina at rest Unknown brother Malignant neoplasm of pancreas Unknown Cardiac disease Unknown Malignant neoplasm Unknown Malignant neoplasm of skin Unknown brother Diabetes mellitus Unknown Advance Directives No Advanced Directives Records Found Advance Directive Response Recorded Date/ Time Advance Directives Yes February 16, 015 12:44pm Living Will Yes January 30, 2022 10:31am Power of Structural Technician Yes January 30 10:31am Advance Directive Response Recorded Date/ Time Name of Medical Power of Structural Technician DAUGHTER August 13, 2022 3:16pm Advance Directives Yes February 16, 015 12:44pm Living Will Yes August 13 3:16pm Power of Structural Technician Yes August 13 022 3:16pm Advance Directive Response Recorded Date/ Time Name of Medical Power of Structural Technician DAUGHTER August 13, 2022 2:16pm Advance Directives Yes February 16, 015 11:44am Living Will Yes August 13 2:16pm Power of Structural Technician Yes August 13, 022 2:16pm Advance Directive Response Recorded Date/ Time Advance Directives Yes February 16, 015 12:44pm Living Will Yes October 5th, 202 2 3:16pm Power of Structural Technician Yes August 13 2 022 3:16pm Advance Directive Response Recorded Date/ Time Advance Directives Yes February 16 015 12:44pm Summary Purpose Additional Source Comments Goals (unrecognized section and content) Goals may be documented in a n alternate sectionGoals may be documented in an alternate sectionGoals may be documented in an alternate sectionGoals may be documented in an alternate sectionGoals may be documented in an alternate section Care Teams (unrecognized sec tion and content) Team Status: Active Member Role Status Dates Dr. Maribell Hough MD Family Provider Active Dr. Maribell Hough MD Primary Care Provider Active Team Status: Inactive Member Role Status Dates Dr. Maribell Hough MD Primary Care Provider, Other [place] Active BLAISE MARLEY Attending Provider Active Team Status: Inactive Member Role Status Dates Dr. Maribell Hough MD Primary Care Provider Active Start: October 26, 2024 End: October 26, 2024 Dr. Maribell Hough MD Referring Provider Active St art: October 26, 2024 End: October 26, 2024 Tao DELA CRUZ, PA Attending Provider Active Start: October 26, 2024 End: October 26, 2024 Team Status: Inactive Member Role Status Dates Dr. Maribell Hough MD Primary Care Provider Active Start: February 03, 2025 End: February 03, 2025 LUIGI GARCIA Attending Provider Active Start: February 03, 2025 End: February 03, 2025 LUIGI GARCIA Referring Provider Active Start: February 03, 2025 End: February 03, 2025 Team Status: Active Member Role/Relationship Status Dates Dr. Maribell Hough MD Family Provider Active Dr. Maribell Hough MD Primary Care Provider Active Team Status: Inactive Member Role/Relationship Status Dates Dr. Maribell Hough MD Primary Care Provider Active Start: February 03, 2025 End: February 03, 2025 LUIGI GARCIA Attending Provider Active Start: February 03, 2025 End: February 03, 2025 LUIGI GARCIA Referring Provider Active Start: February 03, 2025 End: February 03, 2025 Team Status: Inactive Member Role/Relationship Status Dates Dr. Maribell Hough MD Primary Care Provider Active Start: May 01, 2025 End: May 01, 2025 Dr. Maribell Hough MD Attending Provider Active St art: May 01, 2025 End: May 01, 2025 Team Status: Active Member Role/Relationship Status Dates Dr. Maribell Hough MD Primary care physician Active Team Status: Inactive Member Role/Relationship Status Dates Dr. Maribell Hough MD Primary care physician Active Start: May 01, 2025 End: May 01, 2025 Dr. Maribell Hough MD Attending physician Active S tart: May 01, 2025 End: May 01, 2025 Team Status: Inactive Member Role/Relationship Status Dates Dr. Maribell Hough MD Primary care physician Active Start: August 01, 2025 End: August 01, 2025 Dr. Maribell Hough MD Referring Provider Active St art: August 01, 2025 End: August 01, 2025 Tao DELA CRUZ, PA Attending physician Active Start: August 01, 2025 End: August 01, 2025 INFORMATION SOURCE (unrecogn ized section and content) DATE CREATED AUTHOR 09/08/2025 [facility] FOR RECORDS PERTAINING TO PATIENTS WHO ARE OR HAVE BEEN ENROLLED IN A CHEMICAL DEPENDENCY/SUBSTANCEABUSE PROGRAM, SOME INFORMATION MAY BE OMITTED. This clinical summary was aggregated from multiple sources. Caution should be exercised in using it in the provision of clinical care. This summary normalizes information from multiple sources, and as a consequence, information in this document may materially change the coding, format and clinical context of patient data. In addition, data may be omitted in some cases. CLINICAL DECISIONS SHOULD BE BASED ON THE PRIMARY CLINICAL RECORDS. [facility] [employer] [facility]. provides no warranty or guarantee of the accuracy or completeness of information in this document.
== END | disposition home or self-care (01) ==
LOC: OPBD 15:05
PROVIDERS: PCP Family Medicine; Referring Provider Nurse Practitioner Family; Visit Provider Nurse Practitioner Family
DX: Z12.31 Encounter for screening mammogram for malignant neoplasm of breast (principal); Z78.0 Asymptomatic menopausal state
CPT/HCPCS: 77063; 77067; 77080

== ENCOUNTER → 2025-10-20 | Outpatient (CLI) | payer MEDICARE, SELFPAY ==
--- OUTSIDE RECORDS SUMMARY | 2025-10-20 08:19 | XMS RPT_ITS | CCD ---
Author Organization [facility] Care Team Providers Care Tiler Name Role Phone Dr. Maribell Hough Primary Care Provider Dr. Maribell Hough Referring Provider [phone] [...] Physician Gianluca MALONE, Dr. Monroe Attending Physician [phone] Dr. Maribell Hough MD Referring Provider [phone] Tao Cisse Attending Physician [phone] Maribell Hough Referring Unavailable Maribell Hough Primary Care Unavailable Tao Cisse Attending Unavailable Maribell Hough Primary Care Unavailable Maribell Hough Referring Unavailable Tao Cisse Attending Unavailable Maribell Hough Primary Care Unavailable McMorrow ELECTROENCEPHALOGRAPH TECHNOLOGIST, Laurent Referring Unavailable McMorrow ELECTROENCEPHALOGRAPH TECHNOLOGIST, Laurent Attending Unavailable Maribell Hough Attending Unavailable Maribell Hough Primary Care Unavailable DAVID OBRIEN Attending Unavailable Maribell Hough Primary Care Unavailable DAVID OBRIEN Referring [...] 2025 12:00am Complies with drug therapy amylase 738528 unt / lipase 39790 unt / protease 114256 unt delayed release oral capsule (6 sources) Start: 08-13-2022 take [id number] capsules by mouth twice daily Jqnsgq-Hzawtcuf-Dcxa ase (Creon) 36,000-114,000- 180,000 unit capsule,delayed release(DR/EC) Active 16657 NMA PO TWICE A DAY August 13, [...] 21, 2019 1:00am Complies with drug therapy Tphfcrnn-Qyxpt-Ine 2-C-D3-Silva (Fjuwadze-Hxoknb-Pko With Vit D) 750-30-1,000-1 cl-fc-xtwr-mg Tablet (9 sources) Start: 04-29-2021 take 1 tablet by mouth once daily Msulhnlk-Hziju-Ktr 2-C-D3-Silva (Ufiqmxor-Nixcaw-Uig With Vit D) 750-30-1,000-1 aw-ap-nmhz-mg Tablet Active 1 TABLET PO DAILY April 29, 2021 2:55pm Start: 04-29-2021 Glucosam-Chond -Msm 2-C-D3-Silva (Kfacvodo-Qdfwcf-Kdu With Vit D) 750-30-1,000-1 rh-wp-xnnn-mg Tablet Active 1 {tbl} PO TWICE A DAY April 29, 2021 12:00am Complies with drug therapy Start: 04-29-2021 Glucosam-Chond -Msm 2-C-D3-Silva (Yrhsyyxm-Xdauvw-Mid With Vit D) 750-30-1,000-1 zs-ur-wkex-mg Tablet Active 1 {tbl} PO TWICE A DAY April 29, 2021 12:00am Start: 04-29-2021 take 1 tablet by brad twice daily Gggcewid-Trlht-Kaa 2-C-D3-Silva (Pzduruzl-Gufntl-Hkr With Vit D) 750-30-1,000-1 ys-kd-aexc-mg Tablet Active 1 TABLET PO TWICE A DAY April 28, 2021 11:00pm Start: 04-29-2021 take 1 tablet by brad twice daily Cxbnvewn-Cvila-Ceh 2-C-D3-Silva (Ibpteuop-Huwwge-Gpf With Vit D) 750-30-1,000-1 fp-vv-pjqk-mg Tablet Active 1 TABLET PO TWICE A DAY April 29, 2021 12:00am Start: 04-29-2021 take 1 tablet by brad once daily Dayfrcyu-Mxqsz-Zsi 2-C-D3-Silva (Bemysjid-Nmzusz-Juq With Vit D) 750-30-1,000-1 gv-nf-rxtw-mg Tablet Active 1 TABLET PO DAILY April [...] 17, 2018 1:00am Complies with drug therapy [place]-3 Fatty Acids-Fish Oil (6 sources) Start: 11-17-2018 [place]-3 Fatty Acids-Fish Oil Active 1 EACH PO THREE TIMES A DAY November 17, 2018 8:04pm Start: 11-17-2018 [place]-3 Fatty Acids-Fish Oil Active 1 EACH PO THREE TIMES A DAY November 17, 2018 12:00am Start: 11-17-2018 [place]-3 Fatty Acids-Fish Oil Active 1 EACH PO THREE TIMES A DAY November 17, 2018 1:00am [place]-3 Fatty Acids-Fish Oil 1 EACH capsule (3 sources) Start: 11-17-2018 [place]-3 Fatty Acids-Fish Oil 1 EACH capsule Active 1 NMA PO THREE TIMES A DAY November 17, 2018 1:00am Complies with drug therapy Start: 11-17-2018 [place]-3 Fatty Acids-Fish Oil 1 EACH capsule Active [...] DNA Spec Ql JAMESON+probe Reference Range: Negative [employer] GeneXpert: polymerase chain reaction (PCR) 027 [id number] NAP1-B1 Presumptive Negative *for epidemiolologic???u se C. Diff PCR Negative- No toxigenic C. Diff Detected Normal [facility] Comment on above: Performed By: #### M 100.6796 #### [facility] [address] [place], [address] Urgent Care Visit Reporton 0 08-01-2025 Urgent Care Visit Report [facility] [address], [address] [place] [address] OFFICE VISIT Date of Service: 08/01/25 MR#: [id number] Acct: [id number] Name: GARCIA MELGOZA Rep #: [id number] : 1945 Provider: LANIE Paez Age/Sex: 80/F Location: [facility] Status: Signed Intake Vital Signs 02/24/24 09:28 [...] (1,000 unit) tablet (Vitamin D3) glucosamine 750 mw-neievp-jwj 2-C 1 tab PO BID 04/29/21 08/01/25 Hi story 30 mg-D3 1,000 unit-silva 1 mg tablet (Glucosamine-Chondr oitin-MSM + vitD) turmeric root extract 500 mg 500 mg PO DAILY 04/29/21 08/01/25 History capsule tolterodine 4 mg capsule,extended 4 mg PO QHS 01/30/22 08/01/25 His tory release 24 hr ftjtbk-tyegityd-esk lase 36,000 cap PO BID 08/13/22 5 History 36,000-114,000-180, 000 unit capsule,delay rel (Creon) amoxicillin 875 mg tablet 875 mg PO BID #20 tabs 08/01/25 Rx Have you fallen in the past year?: No Nurse's Note: Cough, congestion, sneezing. Started before the fair was going on, but cough and congestion stayed. [facility] Medical History (Updated 07/27/24 @ 08:46 by [...] and sinus: (more content not included)... Normal [facility] Absolute lymphocyte countOrd ered By: Maribell Hough on 05-01-2025 Lymphocytes Auto (Unsp spec) [#/Vol] 1.83 10*3/uL 0.83-4.51 [facility] Absolute neutrophil countOrd ered By: Maribell Hough on 05-01-2025 Neutrophils (Bld) [#/Vol] 3.1 10*3/uL 2.0-7.7 [facility] Anion gap in Serum or Plasma Ordered By: Maribell Hough on 05-01-2025 Anion gap [Moles/Vol] 12 mmol/L 5-15 [facility] Automated lymphocyte count a s percentage of total leukocytesOrdered By: Maribell Hough on 05-01-2025 Lymphocytes/100 WBC Auto (Unsp spec) 32.0 % 19-41 [facility] BUN/creatinine ratioOrdered By: Maribell Hough on 05-01-2025 Urea nitrogen/Creatinine [Mass ratio] 23.0 mg/mg High 10-20 [facility] Basophil percentageOrdered B y: Maribell Hough on 05-01-2025 Basophils/100 WBC (Bld) 0.5 % 0-1 [facility] Bilirubin, totalOrdered By: Maribell Hough on 05-01-2025 Bilirubin [Mass/Vol] 0.90 mg/dL 0.00-1.30 [facility] CBC W/Diff, Automatedon 06-2 -2024 Absolute Lymph 1.83 X10 3/uL Normal 0.83-4.51 [facility] Comment on above: Performed By: #### L 100.0100, L502.0250, L501.5200, L500.4050, L503.6550 #### [facility] [address] [place], [address] Absolute Neut 3.1 X10 3/uL Normal 2.0-7.7 [facility] Comment on above: Performed By: #### L 100.0100, L502.0250, L501.5200, L500.4050, L503.6550 #### [facility] [address] [place], [address] Basophils/100 WBC (Bld) 0.5 % Normal 0-1 [facility] Comment on above: Performed By: #### L 100.0100, L502.0250, L501.5200, L500.4050, L503.6550 #### [facility] [address] [place], [address] Eosinophils/100 WBC (Bld) 1.9 % Normal 0-5 [facility] Comment on above: Performed By: #### L 100.0100, L502.0250, L501.5200, L500.4050, L503.6550 #### [facility] [address] [place], [address] Erythrocyte distribution width (RBC) [Ratio] 12.3 % Normal 11.6-14.6 [facility] Comment on above: Performed By: #### L 100.0100, L502.0250, L501.5200, L500.4050, L503.6550 #### [facility] [address] [place], [address] Hematocrit (Bld) [Volume fraction] 47.5 % High 37-47 [facility] Comment on above: Performed By: #### L 100.0100, L502.0250, L501.5200, L500.4050, L503.6550 #### [facility] [address] [place], [address] Hemoglobin (Bld) [Mass/Vol] 15.8 g/dL High 12.0-15.0 [facility] Comment on above: Performed By: #### L 100.0100, L502.0250, L501.5200, L500.4050, L503.6550 #### [facility] [address] [place], [address] IG% 0.500 Normal 0.0-0.9 [facility] Comment on above: Result Comment: IG% - Immature Granulocytes (promyelocytes, myelocytes and metamyelocytes) > 1% indicates that a LEFT SHIFT is Present. Performed By: #### L 100.0100, L502.0250, L501.5200, L500.4050, L503.6550 #### [facility] [address] [place], [address] Lymphocytes/100 WBC (Bld) 32.0 % Normal 19-41 [facility] Comment on above: Performed By: #### L 100.0100, L502.0250, L501.5200, L500.4050, L503.6550 #### [facility] [address] [place], [address] MCH (RBC) [Entitic mass] 30.2 pg Normal 27.0-32.0 [facility] Comment on above: Performed By: #### L 100.0100, L502.0250, L501.5200, L500.4050, L503.6550 #### [facility] [address] [place], [address] MCHC (RBC) [Mass/Vol] 33.3 g/dL Normal 32-36 [facility] Comment on above: Performed By: #### L 100.0100, L502.0250, L501.5200, L500.4050, L503.6550 #### [facility] [address] [place], [address] MCV (RBC) [Entitic vol] 90.8 fL Normal 81-99 [facility] Comment on above: Performed By: #### L 100.0100, L502.0250, L501.5200, L500.4050, L503.6550 #### [facility] [address] [place], [address] Monocytes/100 WBC (Bld) 11.0 % High 0-10 [facility] Comment on above: Performed By: #### L 100.0100, L502.0250, L501.5200, L500.4050, L503.6550 #### [facility] [address] [place], [address] Neutrophils/100 WBC (Bld) 54.1 % Normal 47-70 [facility] Comment on above: Performed By: #### L 100.0100, L502.0250, L501.5200, L500.4050, L503.6550 #### [facility] [address] [place], [address] Nucleated RBC (Bld) [#/Vol] 0 10*3/uL Normal 0-5 [facility] Comment on above: Performed By: #### L 100.0100, L502.0250, L501.5200, L500.4050, L503.6550 #### [facility] [address] [place], [address] Platelet mean volume (Bld) [Entitic vol] 9.9 fL Normal 6.2-12.0 [facility] Comment on above: Performed By: #### L 100.0100, L502.0250, L501.5200, L500.4050, L503.6550 #### [facility] [address] [place], [address] Platelets (Bld) [#/Vol] 263 10*3/uL Normal 150-450 [facility] Comment on above: Performed By: #### L 100.0100, L502.0250, L501.5200, L500.4050, L503.6550 #### [facility] [address] [place], [address] RBC (Bld) [#/Vol] 5.23 10*6/uL Normal 4.2-5.4 [facility] Comment on above: Performed By: #### L 100.0100, L502.0250, L501.5200, L500.4050, L503.6550 #### [facility] [address] [place], [address] RDW SD 41.0 fl Normal 35.1-43.9 [facility] Comment on above: Performed By: #### L 100.0100, L502.0250, L501.5200, L500.4050, L503.6550 #### [facility] [address] [place], [address] WBC (Bld) [#/Vol] 5.7 10*3/uL Normal 4.4-11.0 [facility] Comment on above: Performed By: #### L 100.0100, L502.0250, L501.5200, L500.4050, L503.6550 #### [facility] [address] [place], [address] Carbon dioxide, total [Moles /volume] in Central venous bloodOrdered By: Maribell Hough on 05-01-2025 CO2 [Moles/Vol] 27.5 mmol/L 21.0-32.0 [facility] Chloride assayOrdered By: Gaurang Hough on 05-01-2025 Chloride [Moles/Vol] 101 mmol/L 98-108 [facility] Comprehensive Metabolic Prof ilon 05-01-2025 Albumin [Mass/Vol] 4.5 g/dL Normal 3.4-4.8 [facility] Comment on above: Performed By: #### L 100.0100, L502.0250, L501.5200, L500.4050, L503.6550 #### [facility] [address] [place], [address] Albumin/Globulin [Mass ratio] 1.4 {ratio} Normal 0.9-2.4 [facility] Comment on above: Performed By: #### L 100.0100, L502.0250, L501.5200, L500.4050, L503.6550 #### [facility] [address] [place], [address] ALK PHOS 71 U/L Normal 35-104 [facility] Comment on above: Performed By: #### L 100.0100, L502.0250, L501.5200, L500.4050, L503.6550 #### [facility] [address] [place], [address] ALT [Catalytic activity/Vol] 15 U/L Normal <=34 [facility] Comment on above: Performed By: #### L 100.0100, L502.0250, L501.5200, L500.4050, L503.6550 #### [facility] [address] [place], [address] AST [Catalytic activity/Vol] 23 U/L Normal <=31 [facility] Comment on above: Performed By: #### L 100.0100, L502.0250, L501.5200, L500.4050, L503.6550 #### [facility] [address] [place], [address] Bilirubin [Mass/Vol] 0.90 mg/dL Normal 0.00-1.30 [facility] Comment on above: Performed By: #### L 100.0100, L502.0250, L501.5200, L500.4050, L503.6550 #### [facility] [address] [place], [address] BUN/CRE 23.0 RATIO High 10-20 [facility] Comment on above: Performed By: #### L 100.0100, L502.0250, L501.5200, L500.4050, L503.6550 #### [facility] [address] [place], [address] Calcium [Mass/Vol] 10.2 mg/dL Normal 7.6-11.0 [facility] Comment on above: Performed By: #### L 100.0100, L502.0250, L501.5200, L500.4050, L503.6550 #### [facility] [address] [place], [address] Chloride [Moles/Vol] 101 mmol/L Normal 98-108 [facility] Comment on above: Performed By: #### L 100.0100, L502.0250, L501.5200, L500.4050, L503.6550 #### [facility] [address] [place], [address] CO2 [Moles/Vol] 27.5 mmol/L Normal 21.0-32.0 [facility] Comment on above: Performed By: #### L 100.0100, L502.0250, L501.5200, L500.4050, L503.6550 #### [facility] [address] [place], [address] Creatinine [Mass/Vol] 1.15 mg/dL Normal 0.70-1.20 [facility] Comment on above: Performed By: #### L 100.0100, L502.0250, L501.5200, L500.4050, L503.6550 #### [facility] [address] [place], [address] GAP 12 Normal 5-15 [facility] Comment on above: Performed By: #### L 100.0100, L502.0250, L501.5200, L500.4050, L503.6550 #### [facility] [address] [place], [address] GFR/1.73 sq M.predicted among non-blacks MDRD (S/P/Bld) [Vol rate/Area] 48 mL/min/{1.73_m2} Low >60 [facility] Comment on above: Result Comment: mL/m in/1.73m2 CKD-EPI Creatinine Equation (2020) Performed By: #### L 100.0100, L502.0250, L501.5200, L500.4050, L503.6550 #### [facility] [address] [place], [address] Globulin (S) [Mass/Vol] 3.2 g/dL Normal 2.2-4.2 [facility] Comment on above: Performed By: #### L 100.0100, L502.0250, L501.5200, L500.4050, L503.6550 #### [facility] [address] [place], [address] Glucose [Mass/Vol] 111 mg/dL High 70-99 [facility] Comment on above: Performed By: #### L 100.0100, L502.0250, L501.5200, L500.4050, L503.6550 #### [facility] [address] [place], [address] Potassium [Moles/Vol] 4.6 mmol/L Normal 3.3-5.1 [facility] Comment on above: Performed By: #### L 100.0100, L502.0250, L501.5200, L500.4050, L503.6550 #### [facility] [address] [place], [address] Sodium [Moles/Vol] 141 mmol/L Normal 133-145 [facility] Comment on above: Performed By: #### L 100.0100, L502.0250, L501.5200, L500.4050, L503.6550 #### [facility] [address] [place], [address] T PROT 7.6 g/dL Normal 5.9-8.4 [facility] Comment on above: Performed By: #### L 100.0100, L502.0250, L501.5200, L500.4050, L503.6550 #### [facility] [address] [place], [address] Urea nitrogen [Mass/Vol] 26 mg/dL High 4-19 [facility] Comment on above: Performed By: #### L 100.0100, L502.0250, L501.5200, L500.4050, L503.6550 #### [facility] [address] [place], [address] Eosinophil percentageOrdered By: Maribell Hough on 05-01-2025 Eosinophils/100 WBC (Bld) 1.9 % 0-5 [facility] Erythrocyte distribution wid th ratioOrdered By: Maribell Hough on 05-01-2025 Erythrocyte distribution width (RBC) [Ratio] 12.3 % 11.6-14.6 [facility] Erythrocyte distribution wid th standard deviationOrdered By: Maribell Hough on 05-01-2025 Erythrocyte distribution width (RBC) [Ratio] 41.0 fl 35.1-43.9 [facility] Ferritinon 05-01-2025 Ferritin [Mass/Vol] 102 ng/mL Normal 22-378 [facility] Comment on above: Performed By: #### L 502.0250, L501.9985, L500.4050, L300.3900 #### [facility] [address] [place], [place], [address] Glomerular filtration rate ( GFR) estimation/1.73 sq m using serum, plasma, or whole bOrdered By: Maribell Hough on 05-01-2025 GFR/1.73 sq M.predicted among non-blacks MDRD (S/P/Bld) [Vol rate/Area] 48 mL/min/{1.73_m2} Low >60 [facility] Comment on above: mL/min/1.73m2 CKD-EP I Creatinine Equation (2020) Hematocrit Auto (Bld) [Volum e fraction]Ordered By: Maribell Hough on 05-01-2025 Hematocrit (Bld) [Volume fraction] 47.5 % High 37-47 [facility] Hemoglobin measurementOrdere d By: Maribell Hough on 05-01-2025 Hemoglobin (Bld) [Mass/Vol] 15.8 g/dL High 12.0-15.0 [facility] Immature granulocytes/100 WB C Auto (Bld)Ordered By: Maribell Hough on 05-01-2025 Immature granulocytes/100 WBC (Bld) 0.500 % 0.0-0.9 [facility] Comment on above: IG% - Immature Granu locytes (promyelocytes, myelocytes and metamyelocytes) > 1% indicates that a LEFT SHIFT is Present. Laboratory - Chemistry and C hemistry - challengeOrdered By: Maribell Hough on 05-01-2025 AST [Catalytic activity/Vol] 23 U/L <32 [facility] MCV (mean corpuscular volume ) determinationOrdered By: Maribell Hough on 05-01-2025 MCV (RBC) [Entitic vol] 90.8 fL 81-99 [facility] Magnesiumon 05-01-2025 Magnesium [Mass/Vol] 2.7 mg/dL High 1.5-2.2 [facility] Comment on above: Performed By: #### L 100.0100, L502.0250, L501.5200, L500.4050, L503.6550 #### [facility] [address] [place], [address] Magnesium measurement (mass/ volume)Ordered By: Maribell Hough on 05-01-2025 Magnesium (Unsp spec) [Mass/Vol] 2.7 mg/dL High 1.5-2.2 [facility] Mean corpuscular hemoglobin (MCH) determinationOrdered By: Maribell Hough on 05-01-2025 MCH (RBC) [Entitic mass] 30.2 pg 27.0-32.0 [facility] Mean corpuscular hemoglobin concentration (MCHC) determinationOrdered By: Maribell Hough on 05-01-2025 MCHC (RBC) [Mass/Vol] 33.3 g/dL 32-36 [facility] Mean platelet volume determi nationOrdered By: Maribell Hough on 05-01-2025 Platelet mean volume (Bld) [Entitic vol] 9.9 fL 6.2-12.0 [facility] Microalb:Creat Ratio,Random URon 05-01-2025 Creatinine [Mass/Vol] 172.00 mg/dL Normal 28.00-217.00 [facility] Comment on above: Performed By: #### L 502.0250, L501.9985, L500.4050, L300.3900 #### [facility] [address] [place], [address] MALB:CREAT 16.6 mg/g CRE Normal [facility] Comment on above: Performed By: #### L 502.0250, L501.9985, L500.4050, L300.3900 #### [facility] [address] [place], [address] MICROALBUMIN,UR 28.5 mg/L Normal NO RANGE EST. [facility] Comment on above: Performed By: #### L 502.0250, L501.9985, L500.4050, L300.3900 #### [facility] [address] [place], [address] Monocyte percentageOrdered B y: Maribell Hough on 05-01-2025 Monocytes/100 WBC (Bld) 11.0 % High 0-10 [facility] Neutrophil percentageOrdered By: Maribell Hough on 05-01-2025 Neutrophils/100 WBC (Bld) 54.1 % 47-70 [facility] Nucleated red blood cell per centageOrdered By: Maribell Hough on 05-01-2025 Nucleated RBC/100 WBC (Bld) [Ratio] 0 % 0-5 [facility] Platelet countOrdered By: Gaurang Hough on 05-01-2025 Platelets (Bld) [#/Vol] 263 10*3/uL 150-450 [facility] Potassium measurement (mass/ volume)Ordered By: Maribell Hough on 05-01-2025 Potassium (Unsp spec) [Mass/Vol] 4.6 mmol/L 3.3-5.1 [facility] RBC Auto (Bld) [#/Vol]Ordere d By: Maribell Hough on 05-01-2025 RBC (Bld) [#/Vol] 5.23 10*6/uL 4.2-5.4 [facility] Random urine creatinine nataliya urement (mass/volume)Ordered By: Maribell Hough on 05-01-2025 Creatinine Unsp time (U) [Mass/Vol] 172.00 mg/dL 28.00-217.00 [facility] Serum creatinine measurement (mass/volume)Ordered By: Maribell Hough on 05-01-2025 Creatinine [Mass/Vol] 1.15 mg/dL 0.70-1.20 [facility] Serum globulin measurementOr dered By: Maribell Hough on 05-01-2025 Globulin (S) [Mass/Vol] 3.2 g/dL 2.2-4.2 [facility] Serum glucose measurement (m ass/volume)Ordered By: Maribell Hough on 05-01-2025 Glucose [Mass/Vol] 111 mg/dL High 70-99 [facility] Serum or plasma alanine stoll otransferase (ALT) measurementOrdered By: Maribell Hough on 05-01-2025 ALT [Catalytic activity/Vol] 15 U/L <35 [facility] Serum or plasma albumin nataliya urement (mass/volume)Ordered By: Maribell Hough on 05-01-2025 Albumin [Mass/Vol] 4.5 g/dL 3.4-4.8 [facility] Serum or plasma albumin/glob ulin mass ratioOrdered By: Maribell Hough on 05-01-2025 Albumin/Globulin [Mass ratio] 1.4 {ratio} 0.9-2.4 [facility] Serum or plasma alkaline ravi sphatase measurementOrdered By: Maribell Hough on 05-01-2025 ALP [Catalytic activity/Vol] 71 U/L 35-104 [facility] Serum or plasma calcium nataliya urement (mass/volume)Ordered By: Maribell Hough on 05-01-2025 Calcium [Mass/Vol] 10.2 mg/dL 7.6-11.0 [facility] Serum or plasma ferritin kimi surement (mass/volume)Ordered By: Maribell Hough on 05-01-2025 Ferritin [Mass/Vol] 102 ng/mL 22-378 [facility] Serum or plasma urea nitroge n measurement (mass/volume)Ordered By: Maribell Hough on 05-01-2025 Urea nitrogen [Mass/Vol] 26 mg/dL High 4-19 [facility] Sodium levelOrdered By: Maribell Hough on 05-01-2025 Sodium [Moles/Vol] 141 mmol/L 133-145 [facility] Total proteinOrdered By: Mansi Hough on 05-01-2025 Protein [Mass/Vol] 7.6 g/dL 5.9-8.4 [facility] Urine albumin measurement [facility] detection limit of 20 mg/L or less (mass/volume)Ordered By: Maribell Hough on 05-01-2025 Albumin DL <= 20 mg/L (U) [Mass/Vol] 28.5 mg/L NO RANGE EST. [facility] White blood cell (WBC) count Ordered By: Maribell Hough on 05-01-2025 WBC (Bld) [#/Vol] 5.7 10*3/uL 4.4-11.0 [facility] Absolute lymphocyte counton 02-03-2025 Lymphocytes Auto (Unsp spec) [#/Vol] 1.67 10*3/uL 0.83-4.51 [facility] Absolute neutrophil counton 02-03-2025 Neutrophils (Bld) [#/Vol] 2.8 10*3/uL 2.0-7.7 [facility] Automated lymphocyte count a s percentage of total leukocyteson 02-03-2025 Lymphocytes/100 WBC Auto (Unsp spec) 32.6 % 19-41 [facility] Basophil percentageon 2024 Basophils/100 WBC (Bld) 0.8 % 0-1 [facility] Bilirubin directon Bilirubin.direct [Mass/Vol] 0.43 mg/dL High 0.00-0.30 [facility] Bilirubin, totalon Bilirubin [Mass/Vol] 1.10 mg/dL 0.00-1.30 [facility] CBC W/Diff, Automatedon 01-08 Absolute Lymph 1.67 X10 3/uL Normal 0.83-4.51 [facility] Comment on above: Performed By: #### L 502.0250, L501.9985, L500.4050, L300.3900 #### [facility] [address] [place], [address] Absolute Neut 2.8 X10 3/uL Normal 2.0-7.7 [facility] Comment on above: Performed By: #### L 502.0250, L501.9985, L500.4050, L300.3900 #### [facility] [address] [place], [address] Basophils/100 WBC (Bld) 0.8 % Normal 0-1 [facility] Comment on above: Performed By: #### L 502.0250, L501.9985, L500.4050, L300.3900 #### [facility] [address] [place], [address] Eosinophils/100 WBC (Bld) 2.9 % Normal 0-5 [facility] Comment on above: Performed By: #### L 502.0250, L501.9985, L500.4050, L300.3900 #### [facility] [address] [place], [address] Erythrocyte distribution width (RBC) [Ratio] 12.2 % Normal 11.6-14.6 [facility] Comment on above: Performed By: #### L 502.0250, L501.9985, L500.4050, [id number] #### [facility] [address] [place], [address] Hematocrit (Bld) [Volume fraction] 44.1 % Normal 37-47 [facility] Comment on above: Performed By: #### L 502.0250, L501.9985, L500.4050, [id number] #### [facility] [address] [place], [address] Hemoglobin (Bld) [Mass/Vol] 15.0 g/dL Normal 12.0-15.0 [facility] Comment on above: Performed By: #### L 502.0250, L501.9985, L500.4050, [id number] #### [facility] [address] [place], [address] IG% 0.200 Normal 0.0-0.9 [facility] Comment on above: Result Comment: IG% - Immature Granulocytes (promyelocytes, myelocytes and metamyelocytes) > 1% indicates that a LEFT SHIFT is Present. Performed By: #### L 502.0250, L501.9985, L500.4050, [id number] #### [facility] [address] [place], [address] Lymphocytes/100 WBC (Bld) 32.6 % Normal 19-41 [facility] Comment on above: Performed By: #### L 502.0250, [id number], L500.4050, [id number] #### [facility] [address] [place], [address] MCH (RBC) [Entitic mass] 30.8 pg Normal 27.0-32.0 [facility] Comment on above: Performed By: #### L 502.0250, L501.9985, L500.4050, [id number] #### [facility] [address] [place], [address] MCHC (RBC) [Mass/Vol] 34.0 g/dL Normal 32-36 [facility] Comment on above: Performed By: #### L 502.0250, L501.9985, L500.4050, [id number] #### [facility] [address] [place], [address] MCV (RBC) [Entitic vol] 90.6 fL Normal 81-99 [facility] Comment on above: Performed By: #### L 502.0250, L501.9985, L500.4050, [id number] #### [facility] [address] [place], [address] Monocytes/100 WBC (Bld) 9.6 % Normal 0-10 [facility] Comment on above: Performed By: #### L 502.0250, L501.9985, L500.4050, [id number] #### [facility] [address] [place], [address] Neutrophils/100 WBC (Bld) 53.9 % Normal 47-70 [facility] Comment on above: Performed By: #### L 502.0250, L501.9985, L500.4050, [id number] #### [facility] [address] [place], [address] Nucleated RBC (Bld) [#/Vol] 0 10*3/uL Normal 0-5 [facility] Comment on above: Performed By: #### L 502.0250, L501.9985, L500.4050, [id number] #### [facility] [address] [place], [address] Platelet mean volume (Bld) [Entitic vol] 9.6 fL Normal 6.2-12.0 [facility] Comment on above: Performed By: #### L 502.0250, L501.9985, L500.4050, [id number] #### [facility] [address] [place], [address] Platelets (Bld) [#/Vol] 225 10*3/uL Normal 150-450 [facility] Comment on above: Performed By: #### L 502.0250, L501.9985, L500.4050, [id number] #### [facility] [address] [place], [address] RBC (Bld) [#/Vol] 4.87 10*6/uL Normal 4.2-5.4 [facility] Comment on above: Performed By: #### L 502.0250, L501.9985, L500.4050, [id number] #### [facility] [address] [place], [address] RDW SD 40.7 fl Normal 35.1-43.9 [facility] Comment on above: Performed By: #### L 502.0250, L501.9985, L500.4050, [id number] #### [facility] [address] [place], [address] WBC (Bld) [#/Vol] 5.1 10*3/uL Normal 4.4-11.0 [facility] Comment on above: Performed By: #### L 502.0250, L501.9985, L500.4050, [id number] #### [facility] [address] [place], [address] Eosinophil percentageon 03-2 8-202 Eosinophils/100 WBC (Bld) 2.9 % 0-5 [facility] Erythrocyte distribution wid th ratioon 02-03-2025 Erythrocyte distribution width (RBC) [Ratio] 12.2 % 11.6-14.6 [facility] Erythrocyte distribution wid th standard deviationon 02-03-2025 Erythrocyte distribution width (RBC) [Entitic vol] 40.7 fL 35.1-43.9 [facility] Erythrocyte distribution width (RBC) [Ratio] 40.7 fl 35.1-43.9 [facility] Hematocrit Auto (Bld) [Volum e fraction]on 02-03-2025 Hematocrit (Bld) [Volume fraction] 44.1 % 37-47 [facility] Hemoglobin measurementon Hemoglobin (Bld) [Mass/Vol] 15.0 g/dL 12.0-15.0 [facility] Immature granulocytes/100 WB C Auto (Bld)on 02-03-2025 Immature granulocytes/100 WBC (Bld) 0.200 % 0.0-0.9 [facility] Comment on above: IG% - Immature Granu locytes (promyelocytes, myelocytes and metamyelocytes) > 1% indicates that a LEFT SHIFT is Present. Laboratory - Chemistry and C hemistry - challengeon 02-03-2025 AST [Catalytic activity/Vol] 22 U/L <32 [facility] Liver Profileon 02-03-2025 Albumin [Mass/Vol] 4.8 g/dL Normal 3.4-4.8 [facility] Comment on above: Performed By: #### L 502.0250, L501.9985, L500.4050, [id number] #### [facility] [address] [place], [address] ALK PHOS 68 U/L Normal 35-104 [facility] Comment on above: Performed By: #### L 502.0250, L501.9985, L500.4050, [id number] #### [facility] [address] [place], [address] ALT [Catalytic activity/Vol] 18 U/L Normal <=34 [facility] Comment on above: Performed By: #### L 502.0250, L501.9985, L500.4050, [id number] #### [facility] [address] [place], [address] AST [Catalytic activity/Vol] 22 U/L Normal <=31 [facility] Comment on above: Performed By: #### L 502.0250, L501.9985, L500.4050, [id number] #### [facility] [address] [place], [address] Bilirubin [Mass/Vol] 1.10 mg/dL Normal 0.00-1.30 [facility] Comment on above: Performed By: #### L 502.0250, L501.9985, L500.4050, L300.3900 #### [facility] [address] [place], [address] Bilirubin.direct [Mass/Vol] 0.43 mg/dL High 0.00-0.30 [facility] Comment on above: Performed By: #### L 502.0250, L501.9985, L500.4050, L300.3900 #### [facility] [address] [place], [address] Globulin (S) [Mass/Vol] 2.7 g/dL Normal 2.2-4.2 [facility] Comment on above: Performed By: #### L 502.0250, L501.9985, L500.4050, L300.3900 #### [facility] [address] [place], [address] T PROT 7.5 g/dL Normal 5.9-8.4 [facility] Comment on above: Performed By: #### L 502.0250, L501.9985, L500.4050, [id number] #### [facility] [address] [place], [address] Lymphocytes Auto (Unsp spec) [#/Vol]on 02-03-2025 Lymphocytes (Bld) [#/Vol] 1.67 10*3/uL 0.83-4.5 1 [facility] Lymphocytes/100 WBC Auto (Un sp spec)on 02-03-2025 Lymphocytes/100 WBC (Bld) 32.6 % 19-41 [facility] MCV (mean corpuscular volume ) determinationon 02-03-2025 MCV (RBC) [Entitic vol] 90.6 fL 81-99 [facility] Mean corpuscular hemoglobin (MCH) determinationon 02-03-2025 MCH (RBC) [Entitic mass] 30.8 pg 27.0-32.0 [facility] Mean corpuscular hemoglobin concentration (MCHC) determinationon 02-03-2025 MCHC (RBC) [Mass/Vol] 34.0 g/dL 32-36 [facility] Mean platelet volume determi nationon 02-03-2025 Platelet mean volume (Bld) [Entitic vol] 9.6 fL 6.2-12.0 [facility] Monocyte percentageon 2024 Monocytes/100 WBC (Bld) 9.6 % 0-10 [facility] Neutrophil percentageon 01-08 Neutrophils/100 WBC (Bld) 53.9 % 47-70 [facility] Nucleated red blood cell per centageon 02-03-2025 Nucleated RBC/100 WBC (Bld) [Ratio] 0 % 0-5 [facility] Platelet counton 02-03-2025 Platelets (Bld) [#/Vol] 225 10*3/uL 150-450 [facility] RBC Auto (Bld) [#/Vol]on RBC (Bld) [#/Vol] 4.87 10*6/uL 4.2-5.4 [facility] Serum globulin measurementon 02-03-2025 Globulin (S) [Mass/Vol] 2.7 g/dL 2.2-4.2 [facility] Serum or plasma alanine stoll otransferase (ALT) measurementon 02-03-2025 ALT [Catalytic activity/Vol] 18 U/L <35 [facility] Serum or plasma albumin nataliya urement (mass/volume)on 02-03-2025 Albumin [Mass/Vol] 4.8 g/dL 3.4-4.8 [facility] Serum or plasma alkaline ravi sphatase measurementon 02-03-2025 ALP [Catalytic activity/Vol] 68 U/L 35-104 [facility] Total proteinon 02-03-2025 Protein [Mass/Vol] 7.5 g/dL 5.9-8.4 [facility] White blood cell (WBC) count on 02-03-2025 WBC (Bld) [#/Vol] 5.1 10*3/uL 4.4-11.0 [facility] No Panel Informationon 10-26 POC SARS CoV-2 Antigen Negative [facility] Urgent Care Visit Reporton 1 12-27-2023 Urgent Care Visit Report [facility] [address], [address] [place] [address] OFFICE VISIT Date of Service: 10/26/24 MR#: [id number] Acct: [id number] Name: GARCIA MELGOZA Rep #: [id number] : 1945 Provider: LANIE Paez Age/Sex: 79/F Location: [facility] Status: Signed Intake Vital Signs 02/24/24 09:28 10/26/24 08:38 Height 5 ft 2 in BP 150/84 H Blood Pressure Location Rt brachial Position Sitting Respiration 16 Pulse 85 Pulse Source NIBP Temp 98.7 F Temp Source Oral Pulse Oximetry (%) 96 Oxygen Delivery Method room air Intake Visit Reasons: Cough 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, drainage 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 denies RODGERS, mucus, fever, BA, congestion. [facility] Medical History (Updated 07/27/24 @ 08:46 by [...] recently dx???d w/ similar URI complaints. No gypk-imd-ixhxeyf taken to assist. No other associated symptoms and no other alleviating/aggrava ting factors. ROS Const Constitutional: No other (As above) Exam Const General: cooperative, healthy appearing and no acute distress Orientation: alert, awake and oriented x3 HENMT Head: normal (more content not included)... Normal [facility] Comprehensive Metabolic Prof velmasesar 09-13-2024 Albumin [Mass/Vol] 3.9 g/dL Normal 3.2-5.0 [facility] Comment on above: Performed By: #### L 502.0250, L501.9985, L500.4050, L300.3900 #### [facility] [address] [place], [address] Albumin/Globulin [Mass ratio] 1.1 {ratio} Normal 0.9-2.4 [facility] Comment on above: Performed By: #### L 502.0250, L501.9985, L500.4050, L300.3900 #### [facility] [address] [place], [address] ALK P 61 U/L Normal 45-117 [facility] Comment on above: Performed By: #### L 502.0250, L501.9985, L500.4050, [id number] #### [facility] [address] [place], [address] ALT [Catalytic activity/Vol] 23 U/L Normal 13-56 [facility] Comment on above: Performed By: #### L 502.0250, L501.9985, L500.4050, L300.3900 #### [facility] [address] [place], [address] AST [Catalytic activity/Vol] 18 U/L Normal 15-37 [facility] Comment on above: Performed By: #### L 502.0250, L501.9985, L500.4050, L300.3900 #### [facility] [address] [place], [address] Bilirubin [Mass/Vol] 1.10 mg/dL High 0.20-1.00 [facility] Comment on above: Result Comment: For patients on eltrombopag therapy, use of [place]ension [place] TBIL is not recommended. Performed By: #### L 502.0250, L501.9985, L500.4050, L300.3900 #### [facility] [address] [place], [address] BUN/CRE 30.0 RATIO High 10-20 [facility] Comment on above: Performed By: #### L 502.0250, L501.9985, L500.4050, L300.3900 #### [facility] [address] [place], [address] CA,Total 9.9 mg/dL Normal 8.5-10.1 [facility] Comment on above: Performed By: #### L 502.0250, L501.9985, L500.4050, L300.3900 #### [facility] [address] [place], [address] Chloride [Moles/Vol] 103 mmol/L Normal 98-107 [facility] Comment on above: Performed By: #### L 502.0250, L501.9985, L500.4050, L300.3900 #### [facility] [address] [place], [address] CO2 [Moles/Vol] 32.0 mmol/L Normal 21.0-32.0 [facility] Comment on above: Performed By: #### L 502.0250, L501.9985, L500.4050, L300.3900 #### [facility] [address] [place], [address] Creatinine [Mass/Vol] 0.83 mg/dL Normal 0.55-1.02 [facility] Comment on above: Result Comment: The validity of the calculated GFR GFRAA in patients over 70 years has not been determined. Clinical correlation is essential. Performed By: #### L 502.0250, L501.9985, L500.4050, L300.3900 #### [facility] [address] [place], [address] EST GFR - AA 85 mL/min Normal >60 [facility] Comment on above: Result Comment: Afri can Vincentian GFR Calc Performed By: #### L 502.0250, L501.9985, L500.4050, L300.3900 #### [facility] [address] [place], [address] GAP 4 Low 5-15 [facility] Comment on above: Performed By: #### L 502.0250, L501.9985, L500.4050, L300.3900 #### [facility] [address] [place], [address] GFR/1.73 sq M.predicted among non-blacks MDRD (S/P/Bld) [Vol rate/Area] 70 mL/min/{1.73_m2} Normal >60 [facility] Comment on above: Result Comment: Non- GFR Calc Performed By: #### L 502.0250, L501.9985, L500.4050, L300.3900 #### [facility] [address] [place], [address] Globulin (S) [Mass/Vol] 3.6 g/dL Normal 2.2-4.2 [facility] Comment on above: Performed By: #### L 502.0250, L501.9985, L500.4050, L300.3900 #### [facility] [address] [place], [address] Glucose [Mass/Vol] 95 mg/dL Normal 74-106 [facility] Comment on above: Performed By: #### L 502.0250, L501.9985, L500.4050, L300.3900 #### [facility] [address] [place], [address] Potassium [Moles/Vol] 4.0 mmol/L Normal 3.5-5.1 [facility] Comment on above: Performed By: #### L 502.0250, L501.9985, L500.4050, L300.3900 #### [facility] [address] [place], [address] Sodium [Moles/Vol] 138 mmol/L Normal 136-145 [facility] Comment on above: Performed By: #### L 502.0250, L501.9985, L500.4050, L300.3900 #### [facility] [address] [place], [address] T PROT 7.5 g/dL Normal 6.4-8.2 [facility] Comment on above: Performed By: #### L 502.0250, L501.9985, L500.4050, L300.3900 #### [facility] [address] [place], [address] Urea nitrogen [Mass/Vol] 25 mg/dL High 7-18 [facility] Comment on above: Performed By: #### L 502.0250, L501.9985, L500.4050, [id number] #### [facility] [address] [place], [address] Hemoglobin A1con 09-13-2024 HbA1c (Bld) [Mass fraction] 5.8 % High 3.8-5.6 [facility] Comment on above: Result Comment: Norm al < 5.7 % Prediabetic 5.7 - 6.4 % Diabetic >or= 6.5 % Please note range changes. Performed By: #### L 502.0250, L501.9985, L500.4050, L300.3900 #### [facility] [address] [place], [address] Microalb:Creat Ratio,Random URon 09-13-2024 Creatinine [Mass/Vol] 62.60 mg/dL Normal NO RANGE EST. [facility] Comment on above: Performed By: #### L 502.0250, L501.9985, L500.4050, L300.3900 #### [facility] [address] [place], [address] MALB:CRE 30.5 mg/g CRE High <30 mg/g CRE [facility] Comment on above: Performed By: #### L 502.0250, L501.9985, L500.4050, L300.3900 #### [facility] [address] [place], [address] MICROALBUMIN,UR 19.1 mg/L Normal NO RANGE EST. [facility] Comment on above: Performed By: #### L 502.0250, L501.9985, L500.4050, L300.3900 #### [facility] [address] [place], [address] Prothrombin Time w/INRon INR Coag (PPP) [Relative time] 1.0 {INR} Normal [facility] Comment on above: Performed By: #### L 502.0250, L501.9985, L500.4050, L300.3900 #### [facility] [address] [place], [address] PT Coag (PPP) [Time] 13.2 s Normal 11.7-14.9 [facility] Comment on above: Performed By: #### L 502.0250, L501.9985, L500.4050, L300.3900 #### [facility] [address] [place], [address] Absolute lymphocyte counton 07-21-2023 Lymphocytes Auto (Unsp spec) [#/Vol] 1.72 10*3/uL 0.83-4.51 [facility] Basophil percentageon 2022 Basophils/100 WBC (Bld) 0.5 % 0-1 [facility] Bilirubin [Mass/Vol] 1.10 mg/dL 0.20-1.00 [facility] Comment on above: For patients on eltr ombopag therapy, use of [place] TBIL is not recommended. Chloride [Moles/Vol] 105 mmol/L 98-107 [facility] Eosinophils/100 WBC (Bld) 2.1 % 0-5 [facility] Glucose [Mass/Vol] 107 mg/dL 74-106 [facility] Comment on above: Fasting Glucose resu lt from 100 to 125 mg/dL suggests IMPAIRED HOMEOSTASIS per A.D.A. criteria. Neutrophils (Bld) [#/Vol] 3.3 10*3/uL 2.0-7.7 [facility] Neutrophils/100 WBC (Bld) 57.9 % 47-70 [facility] Potassium [Moles/Vol] 3.7 mmol/L 3.5-5.1 [facility] Protein [Mass/Vol] 7.3 g/dL 6.4-8.2 [facility] Sodium [Moles/Vol] 140 mmol/L 136-145 [facility] WBC (Bld) [#/Vol] 5.6 10*3/uL 4.4-11.0 [facility] Blood erythrocytes count (nu mber/volume)on 07-21-2023 RBC (Bld) [#/Vol] 5.17 10*6/uL 4.2-5.4 [facility] Blood hemoglobin measurement (mass/volume)on 07-21-2023 Hemoglobin (Bld) [Mass/Vol] 15.8 g/dL 12.0-15.0 [facility] Blood lymphocytes/100 leukoc yteson 07-21-2023 Lymphocytes/100 WBC (Bld) 30.6 % 19-41 [facility] Blood monocytes/100 leukocyt eson 07-21-2023 Monocytes/100 WBC (Bld) 8.5 % 0-10 [facility] Blood platelet mean volumeon 07-21-2023 Platelet mean volume (Bld) [Entitic vol] 10.3 fL 6.2-12.0 [facility] Determination of erythrocyte mean corpuscular volume (MCV)on 07-21-2023 MCV (RBC) [Entitic vol] 92.6 fL 81-99 [facility] Hematocrit Auto (Bld) [Volum e fraction]on 07-21-2023 Hematocrit (Bld) [Volume fraction] 47.9 % 37-47 [facility] INR in Blood by Coagulation assayon 07-21-2023 INR Coag (Bld) [Relative time] 1.0 {INR} [facility] - Chemistry and C hemistry - challengeon 07-21-2023 ALP [Catalytic activity/Vol] 51 U/L 45-117 [facility] ALT [Catalytic activity/Vol] 21 U/L 13-56 [facility] CO2 [Moles/Vol] 31.0 mmol/L 21.0-32.0 [facility] Globulin (S) [Mass/Vol] 3.7 g/dL 2.2-4.2 [facility] Urea nitrogen/Creatinine [Mass ratio] 26.2 mg/mg 10-20 [facility] - Coagulationon 0 07-21-2023 PT Coag (PPP) [Time] 12.7 s 11.7-14.9 [facility] - Hematology and Cell countson 07-21-2023 Erythrocyte distribution width (RBC) [Entitic vol] 43.5 fL 35.1-43.9 [facility] Erythrocyte distribution width (RBC) [Ratio] 12.6 % 11.6-14.6 [facility] Immature granulocytes/100 WBC (Bld) 0.400 % 0.0-0.9 [facility] Comment on above: IG% - Immature Granu locytes (promyelocytes, myelocytes and metamyelocytes) > 1% indicates that a LEFT SHIFT is Present. MCH (RBC) [Entitic mass] 30.6 pg 27.0-32.0 [facility] Nucleated RBC/100 WBC (Bld) [Ratio] 0 % 0-5 [facility] MCHC Auto (RBC) [Mass/Vol]on 07-21-2023 MCHC (RBC) [Mass/Vol] 33.0 g/dL 32-36 [facility] No Panel InformationOrdered By: Maribell Hough on 07-21-2023 Urine Microalbumin/Creatinine Ratio 19.9 mg/g CRE <30 [facility] No Panel Informationon 07-21 Estimated GFR (MDRD) Amer 73 mL/min >60 [facility] Comment on above: GFR Calc Estimated GFR (MDRD) Non-Af Amer 60 mL/min >60 [facility] Comment on above: Non- GFR Calc Platelets bldon 07-21-2023 Platelets (Bld) [#/Vol] 228 10*3/uL 150-450 [facility] Serum or plasma albumin nataliya urement (mass/volume)on 07-21-2023 Albumin [Mass/Vol] 3.6 g/dL 3.2-5.0 [facility] Serum or plasma albumin/glob ulin mass ratioon 07-21-2023 Albumin/Globulin [Mass ratio] 1.0 {ratio} 0.9-2.4 [facility] Serum or plasma calcium nataliya urement (mass/volume)on 07-21-2023 Calcium [Mass/Vol] 9.7 mg/dL 8.5-10.1 [facility] Serum or plasma creatinine m easurement (mass/volume)on 07-21-2023 Creatinine [Mass/Vol] 0.96 mg/dL 0.55-1.02 [facility] Comment on above: The validity of the calculated GFR & GFRAA in patients over 70 years has not been determined. Clinical correlation is essential. Serum or plasma urea nitroge n measurement (mass/volume)on 07-21-2023 Urea nitrogen [Mass/Vol] 25 mg/dL 7-18 [facility] Thin prep Papanicolaou smear with manual screeningOrdered By: Maribell Hough on 07-21-2023 Thin prep Papanicolaou smear with manual screening 20.5 mg/L NO RANGE EST. [facility] Thin prep Papanicolaou smear with manual screeningon 07-21-2023 Thin prep Papanicolaou smear with manual screening 14 U/L 15-37 [facility] Thin prep Papanicolaou smear with manual screening 4 5-15 [facility] Urine creatinine measurement (mass/volume)Ordered By: Maribell Hough on 07-21-2023 Creatinine (U) [Mass/Vol] 103.00 mg/dL NO RANGE EST. [facility] Basophil percentageon 2021 Bilirubin [Mass/Vol] 1.30 mg/dL 0.20-1.00 [facility] Work Phone: Comment on above: For patients on eltr ombopag therapy, use of [place]ension [place] TBIL is not recommended. Chloride [Moles/Vol] 107 mmol/L 98-107 [facility] Work Phone: Cholesterol [Mass/Vol] 203 mg/dL <200 [facility] Work Phone: Comment on above: <200 mg/dL Desirable 200-240 mg/dL Borderline >240 mg/dL High Risk Glucose [Mass/Vol] 117 mg/dL 74-106 [facility] Work Phone: Comment on above: Fasting Glucose resu lt from 100 to 125 mg/dL suggests IMPAIRED HOMEOSTASIS per A.D.A. criteria. Potassium [Moles/Vol] 3.9 mmol/L 3.5-5.1 [facility] Work Phone: Protein [Mass/Vol] 7.2 g/dL 6.4-8.2 [facility] Work Phone: Sodium [Moles/Vol] 142 mmol/L 136-145 [facility] Work Phone: Triglyceride [Mass/Vol] 122 mg/dL <199 [facility] Work Phone: Comment on above: The drugs N-Acetylcy steine and Metamizole may falsely depress this assay.Serum Triglycerides Reference Interval Normal <150 mg/dL Borderline high 150 - 199 mg/dL High 200 - 499 mg/dL Very High > or = 500 mg/dL WBC (Bld) [#/Vol] 4.4 10*3/uL 4.4-11.0 [facility] Work Phone: Blood erythrocytes count (nu mber/volume)on 07-01-2022 RBC (Bld) [#/Vol] 5.03 10*6/uL 4.2-5.4 [facility] Work Phone: Blood hemoglobin measurement (mass/volume)on 07-01-2022 Hemoglobin (Bld) [Mass/Vol] 15.7 g/dL 12.0-15.0 [facility] Work Phone: Blood platelet mean volumeon 07-01-2022 Platelet mean volume (Bld) [Entitic vol] 10.7 fL 6.2-12.0 [facility] Work Phone: Determination of erythrocyte mean corpuscular volume (MCV)on 07-01-2022 MCV (RBC) [Entitic vol] 91.1 fL 81-99 [facility] Work Phone: Hematocrit Auto (Bld) [Volum e fraction]on 07-01-2022 Hematocrit (Bld) [Volume fraction] 45.8 % 37-47 [facility] Work Phone: Laboratory - Chemistry and C hemistry - challengeon 07-01-2022 ALP [Catalytic activity/Vol] 47 U/L 45-117 [facility] Work Phone: ALT [Catalytic activity/Vol] 22 U/L 13-56 [facility] Work Phone: CO2 [Moles/Vol] 31.0 mmol/L 21.0-32.0 [facility] Work Phone: Globulin (S) [Mass/Vol] 3.5 g/dL 2.2-4.2 [facility] Work Phone: Urea nitrogen/Creatinine [Mass ratio] 24.6 mg/mg 10-20 [facility] Work Phone: Laboratory - Hematology and Cell countson 07-01-2022 Erythrocyte distribution width (RBC) [Entitic vol] 42.4 fL 35.1-43.9 [facility] Work Phone: Erythrocyte distribution width (RBC) [Ratio] 12.8 % 11.6-14.6 [facility] Work Phone: MCH (RBC) [Entitic mass] 31.2 pg 27.0-32.0 [facility] Work Phone: MCHC Auto (RBC) [Mass/Vol]on 07-01-2022 MCHC (RBC) [Mass/Vol] 34.3 g/dL 32-36 [facility] Work Phone: No Panel Informationon 07-01 Estimated GFR (MDRD) Amer 79 mL/min >60 [facility] Work Phone: Comment on above: GFR Calc Estimated GFR (MDRD) Non-Af Amer 65 mL/min >60 [facility] Work Phone: Comment on above: Non- GFR Calc Urine Microalbumin/Creatinine Ratio 27.3 mg/g CRE <30 [facility] Work Phone: Platelets bldon 07-01-2022 Platelets (Bld) [#/Vol] 221 10*3/uL 150-450 [facility] Work Phone: Serum or plasma albumin nataliya urement (mass/volume)on 07-01-2022 Albumin [Mass/Vol] 3.7 g/dL 3.2-5.0 [facility] Work Phone: Serum or plasma albumin/glob ulin mass ratioon 07-01-2022 Albumin/Globulin [Mass ratio] 1.1 {ratio} 0.9-2.4 [facility] Work Phone: Serum or plasma calcium nataliya urement (mass/volume)on 07-01-2022 Calcium [Mass/Vol] 9.5 mg/dL 8.5-10.1 [facility] Work Phone: Serum or plasma cholesterol in HDL measurement (mass/volume)on 07-01-2022 Cholesterol in HDL [Mass/Vol] 70 mg/dL >40 [facility] Work Phone: Comment on above: The drugs N-Acetylcy steine and Metamizole may falsely depress this assay. Reference Range HDL <40 mg/dL Low HDL Cholesterol HDL >or= 60 mg/dL High HDL Cholesterol Serum or plasma cholesterol in VLDL measurement (mass/volume)on 07-01-2022 Cholesterol in VLDL [Mass/Vol] 24 mg/dL 5-40 [facility] Work Phone: Serum or plasma creatinine m easurement (mass/volume)on 07-01-2022 Creatinine [Mass/Vol] 0.89 mg/dL 0.55-1.02 [facility] Work Phone: Comment on above: The validity of the calculated GFR & GFRAA in patients over 70 years has not been determined. Clinical correlation is essential. Serum or plasma low density lipoprotein (LDL) cholesterol measurement (mass/volume)on 07-01-2022 Cholesterol in LDL [Mass/Vol] 109 mg/dL 0-130 [facility] Work Phone: Serum or plasma urea nitroge n measurement (mass/volume)on 07-01-2022 Urea nitrogen [Mass/Vol] 22 mg/dL 7-18 [facility] Work Phone: Thin prep Papanicolaou smear with manual screeningon 07-01-2022 Thin prep Papanicolaou smear with manual screening 18 U/L 15-37 [facility] Work Phone: Thin prep Papanicolaou smear with manual screening 4 5-15 [facility] Work Phone: Thin prep Papanicolaou smear with manual screening 37.1 mg/L NO RANGE EST. [facility] Work Phone: Urine creatinine measurement (mass/volume)on 07-01-2022 Creatinine (U) [Mass/Vol] 136.00 mg/dL NO RANGE EST. [facility] Work Phone: Whole blood hemoglobin A1c/t otal hemoglobin ratio (mass fraction)on 07-01-2022 HbA1c (Bld) [Mass fraction] 5.8 % 3.8-5.6 [facility] Work Phone: Comment on above: Normal < 5.7 % Predi abetic 5.7 - 6.4 % Diabetic >or= 6.5 % Please note range changes. No Panel Informationon 04-12 Stool Calprotectin 317 ug/g 0-120 [facility] Work Phone: Comment on above: Concentration Interp retation Follow-Up<16 - 50 ug/g Normal None>50 -120 ug/g Borderline Re-evaluate in 4-6 weeks >120 ug/g Abnormal Repeat as clinically indicated Stool Pancreatic Elastase 56 >200 [facility] Work Phone: Comment on above: Result Units: ug [address] st./gResults verified by repeat testing Severe Pancreatic Insufficiency: <100 Moderate Pancreatic Insufficiency: 100 - 200 Normal: >200Performed at: - [facility] [id number] Director: Laron Melendez MD, Phone: [phone] Stool pHon 04-12-2022 pH (Stl) 6.5 7.0-7.5 [facility] Work Phone: Comment on above: Performed at: [address] [id number] Director: Laron Melendez MD, Phone: [phone] at: - [facility] [address] [id number] Director: Thong Blunt PhD, Phone: [phone] Absolute lymphocyte counton 12-16-2021 Lymphocytes Auto (Unsp spec) [#/Vol] 1.84 10*3/uL 0.83-4.51 [facility] Work Phone: Basophil percentageon 2021 Basophils/100 WBC (Bld) 0.8 % 0-1 [facility] Work Phone: Bilirubin [Mass/Vol] 1.00 mg/dL 0.20-1.00 [facility] Work Phone: Comment on above: For patients on eltr ombopag therapy, use of [place]ension [place] TBIL is not recommended. Chloride [Moles/Vol] 105 mmol/L 98-107 [facility] Work Phone: Cholesterol [Mass/Vol] 217 mg/dL <200 [facility] Work Phone: Comment on above: <200 mg/dL Desirable 200-240 mg/dL Borderline >240 mg/dL High Risk Eosinophils/100 WBC (Bld) 5.1 % 0-5 [facility] Work Phone: Glucose [Mass/Vol] 118 mg/dL 74-106 [facility] Work Phone: Comment on above: Fasting Glucose resu lt from 100 to 125 mg/dL suggests IMPAIRED HOMEOSTASIS per A.D.A. criteria. Neutrophils (Bld) [#/Vol] 2.5 10*3/uL 2.0-7.7 [facility] Work Phone: Neutrophils/100 WBC (Bld) 50.1 % 47-70 [facility] Work Phone: Potassium [Moles/Vol] 4.0 mmol/L 3.5-5.1 [facility] Work Phone: Protein [Mass/Vol] 7.4 g/dL 6.4-8.2 [facility] Work Phone: Sodium [Moles/Vol] 139 mmol/L 136-145 [facility] Work Phone: Triglyceride [Mass/Vol] 111 mg/dL [facility] Work Phone: Comment on above: The drugs N-Acetylcy steine and Metamizole may falsely depress this assay.Serum Triglycerides Reference Interval Normal <150 mg/dL Borderline high 150 - 199 mg/dL High 200 - 499 mg/dL Very High > or = 500 mg/dL WBC (Bld) [#/Vol] 5.1 10*3/uL 4.4-11.0 [facility] Work Phone: Blood erythrocytes count (nu mber/volume)on 12-16-2021 RBC (Bld) [#/Vol] 5.12 10*6/uL 4.2-5.4 [facility] Work Phone: Blood hemoglobin measurement (mass/volume)on 12-16-2021 Hemoglobin (Bld) [Mass/Vol] 15.3 g/dL 12.0-15.0 [facility] Work Phone: Blood lymphocytes/100 leukoc yteson 12-16-2021 Lymphocytes/100 WBC (Bld) 36.3 % 19-41 [facility] Work Phone: Blood monocytes/100 leukocyt eson 12-16-2021 Monocytes/100 WBC (Bld) 7.3 % 0-10 [facility] Work Phone: Blood platelet mean volumeon 12-16-2021 Platelet mean volume (Bld) [Entitic vol] 10.4 fL 6.2-12.0 [facility] Work Phone: Determination of erythrocyte mean corpuscular volume (MCV)on 12-16-2021 MCV (RBC) [Entitic vol] 91.4 fL 81-99 [facility] Work Phone: Hematocrit Auto (Bld) [Volum e fraction]on 12-16-2021 Hematocrit (Bld) [Volume fraction] 46.8 % 37-47 [facility] Work Phone: Laboratory - Chemistry and C hemistry - challengeon 12-16-2021 ALP [Catalytic activity/Vol] 48 U/L 45-117 [facility] Work Phone: ALT [Catalytic activity/Vol] 24 U/L 13-56 [facility] Work Phone: CO2 [Moles/Vol] 30.0 mmol/L 21.0-32.0 [facility] Work Phone: Globulin (S) [Mass/Vol] 3.7 g/dL 2.2-4.2 [facility] Work Phone: Urea nitrogen/Creatinine [Mass ratio] 22.9 mg/mg 10-20 [facility] Work Phone: Laboratory - Hematology and Cell countson 12-16-2021 Erythrocyte distribution width (RBC) [Entitic vol] 42.6 fL 35.1-43.9 [facility]: Erythrocyte distribution width (RBC) [Ratio] 12.7 % 11.6-14.6 [facility] Work Phone: Immature granulocytes/100 WBC (Bld) 0.400 % 0.0-0.9 [facility] Work Phone: Comment on above: IG% - Immature Granu locytes (promyelocytes, myelocytes and metamyelocytes) > 1% indicates that a LEFT SHIFT is Present. MCH (RBC) [Entitic mass] 29.9 pg 27.0-32.0 [facility] Work Phone: Nucleated RBC/100 WBC (Bld) [Ratio] 0 % 0-5 [facility] Work Phone: MCHC Auto (RBC) [Mass/Vol]on 12-16-2021 MCHC (RBC) [Mass/Vol] 32.7 g/dL 32-36 [facility] Work Phone: No Panel Informationon 12-16 Estimated GFR (MDRD) Amer 66 mL/min >60 [facility] Work Phone: Comment on above: GFR Calc Estimated GFR (MDRD) Non-Af Amer 54 mL/min >60 [facility] Work Phone: Comment on above: Non- GFR Calc Thyroid Stimulating Hormone (TSH) 3.65 uIU/mL 0.358-3.74 [facility] Work Phone: Urine Microalbumin/Creatinine Ratio 59.4 mg/g CRE <30 [facility] Work Phone: Platelets bldon 12-16-2021 Platelets (Bld) [#/Vol] 224 10*3/uL 150-450 [facility] Work Phone: Serum or plasma C reactive p rotein measurement (mass/volume)on 12-16-2021 CRP [Mass/Vol] mg/L 0.0-3.0 [facility] Work Phone: Comment on above: C-Reactive Protein ( CRP) provides useful information for thediagnosis, therapy and monitoring of inflammatory processesand associated diseases. For the evaluation of Relative Riskfor Cardiovascular Disease, a High Sensitivity CRP (HSCRP)should be ordered. Serum or plasma albumin nataliya urement (mass/volume)on 12-16-2021 Albumin [Mass/Vol] 3.7 g/dL 3.2-5.0 [facility] Work Phone: Serum or plasma albumin/glob ulin mass ratioon 12-16-2021 Albumin/Globulin [Mass ratio] 1.0 {ratio} 0.9-2.4 [facility] Work Phone: Serum or plasma calcium nataliya urement (mass/volume)on 12-16-2021 Calcium [Mass/Vol] 9.2 mg/dL 8.5-10.1 [facility] Work Phone: Serum or plasma cholesterol in HDL measurement (mass/volume)on 12-16-2021 Cholesterol in HDL [Mass/Vol] 71 mg/dL [facility] Work Phone: Comment on above: The drugs N-Acetylcy steine and Metamizole may falsely depress this assay. Reference Range HDL <40 mg/dL Low HDL Cholesterol HDL >or= 60 mg/dL High HDL Cholesterol Serum or plasma cholesterol in VLDL measurement (mass/volume)on 12-16-2021 Cholesterol in VLDL [Mass/Vol] 22 mg/dL 5-40 [facility] Work Phone: Serum or plasma creatinine m easurement (mass/volume)on 12-16-2021 Creatinine [Mass/Vol] 1.05 mg/dL 0.55-1.02 [facility] Work Phone: Comment on above: The validity of the calculated GFR & GFRAA in patients over 70 years has not been determined. Clinical correlation is essential. Serum or plasma low density lipoprotein (LDL) cholesterol measurement (mass/volume)on 12-16-2021 Cholesterol in LDL [Mass/Vol] 124 mg/dL 0-130 [facility] Work Phone: Serum or plasma urea nitroge n measurement (mass/volume)on 12-16-2021 Urea nitrogen [Mass/Vol] 24 mg/dL 7-18 [facility] Work Phone: Thin prep Papanicolaou smear with manual screeningon 12-16-2021 Thin prep Papanicolaou smear with manual screening 17 U/L 15-37 [facility] Work Phone: Thin prep Papanicolaou smear with manual screening 4 5-15 [facility] Work Phone: Thin prep Papanicolaou smear with manual screening 68.3 mg/L NO RANGE EST. [facility] Work Phone: Urine creatinine measurement (mass/volume)on 12-16-2021 Creatinine (U) [Mass/Vol] 115.00 mg/dL NO RANGE EST. [facility] Work Phone: Whole blood hemoglobin A1c/t otal hemoglobin ratio (mass fraction)on 12-16-2021 HbA1c (Bld) [Mass fraction] 5.8 % 3.8-5.6 [facility] Work Phone: Comment on above: Normal < 5.7 % Predi abetic 5.7 - 6.4 % Diabetic >or= 6.5 % Please note range changes. Vital Signs Date Time Vital Sign Value Performing Clinician Faci lity 08-01-2025 10:24-0400 Body height 157.[address] Maribell Hough MD Work Phone: [facility] 08-01-2025 10:24-0400 Body mass index (BMI) [Ratio] 33.8 kg/m2 Dr. Maribell Hough MD Work Phone: [facility] 08-01-2025 10:24-0400 Body temperature 98.6 [degF] Dr. Maribell Hough MD Work Phone: [facility] 08-01-2025 10:24-0400 Body weight 83.[address] Maribell Hough MD Work Phone: [facility] 08-01-2025 10:24-0400 Diastolic blood pressure 86 mm[Hg] Dr. Maribell Hough MD Work Phone: [facility] 08-01-2025 10:24-0400 Heart rate 84 /min Dr. Maribell Hough MD Work Phone: [facility] 08-01-2025 10:24-0400 SaO2% (BldA) [Mass fraction] 98 % Dr. Maribell Hough MD Work Phone: [facility] 08-01-2025 10:24-0400 Systolic blood pressure 150 mm[Hg] Dr. Maribell Hough MD Work Phone: [facility] 10-26-2024 08:38-0500 Body temperature 98.7 [degF] Dr. Maribell Hough MD Work Phone: [facility] 10-26-2024 08:38-0500 Diastolic blood pressure 84 mm[Hg] Dr. Maribell Hough MD Work Phone: [facility] 10-26-2024 08:38-0500 Heart rate 85 /min Dr. Maribell Hough MD Work Phone: [facility] 10-26-2024 08:38-0500 Respiratory rate 16 /min Dr. Maribell Hough MD Work Phone: [facility] 10-26-2024 08:38-0500 SaO2% (BldA) [Mass fraction] 96 % Dr. Maribell Hough MD Work Phone: [facility] 10-26-2024 08:38-0500 Systolic blood pressure 150 mm[Hg] Dr. Maribell Hough MD Work Phone: [facility] 11-19-2022 08:42-0500 Body height 160.[address] Maribell Hough Work Phone: [facility] Work Phone: 09-02-2022 13:35-0400 Body temperature 97.6 [degF] Dr. Maribell Hough Work Phone: [facility] Work Phone: 09-02-2022 13:35-0400 Heart rate 69 /min Dr. Maribell Hough Work Phone: [facility] Work Phone: 09-02-2022 13:35-0400 Respiratory rate 16 /min Dr. aMribell Hough Work Phone: [facility] Work Phone: 09-02-2022 13:35-0400 SaO2% (BldA) [Mass fraction] 98 % Dr. Maribell Hough Work Phone: [facility] Work Phone: 08-26-2022 10:06-0400 Body temperature 98 [degF] Dr. Maribell Hough Work Phone: [facility] Work Phone: 08-26-2022 10:06-0400 Heart rate 67 /min Dr. Maribell Hough Work Phone: [facility] Work Phone: 08-26-2022 10:06-0400 Respiratory rate 16 /min Dr. Maribell Hough Work Phone: [facility] Work Phone: 08-26-2022 10:06-0400 SaO2% (BldA) [Mass fraction] 98 % Dr. Maribell Hough Work Phone: [facility] Work Phone: 08-20-2022 10:45-0400 Body temperature 97.9 [degF] Dr. Maribell Hough Work Phone: [facility] Work Phone: 08-20-2022 10:45-0400 Heart rate 56 /min Dr. Maribell Hough Work Phone: [facility] Work Phone: 08-20-2022 10:45-0400 Respiratory rate 16 /min Dr. Maribell Hough Work Phone: [facility] Work Phone: 08-20-2022 10:45-0400 SaO2% (BldA) [Mass fraction] 97 % Dr. Maribell Hough Work Phone: [facility] Work Phone: 08-20-2022 09:05-0400 Diastolic blood pressure 54 mm[Hg] Dr. Maribell Hough Work Phone: [facility] Work Phone: 08-20-2022 09:05-0400 Systolic blood pressure 121 mm[Hg] Dr. Maribell Hough Work Phone: [facility] Work Phone: 08-20-2022 06:31-0400 Body height 160.[address] Maribell Hough Work Phone: [facility] Work Phone: 08-20-2022 06:31-0400 Body mass index (BMI) [Ratio] 31.6 kg/m2 Dr. Maribell Hough Work Phone: [facility] Work Phone: 08-20-2022 06:31-0400 Body weight [address] Maribell Hough Work Phone: [facility] Work Phone: 04-12-2022 08:59-0400 Body height 160.[address] Maribell Hough Work Phone: [facility] Work Phone: 02-04-2022 09:04-0400 Body height 160.[address] Maribell Hough Work Phone: [facility] Work Phone: 02-04-2022 09:04-0400 Body weight 87.[address] Maribell Hough Work Phone: [facility] Work Phone: 12-24-2021 13:21-0500 Body mass index (BMI) [Ratio] 34 kg/m2 Dr. Maribell Hough Work Phone: [facility] Work Phone: 12-24-2021 13:21-0500 Body temperature 98 [degF] Dr. Maribell Hough Work Phone: [facility] Work Phone: 12-24-2021 13:21-0500 Body weight 87.[address] Maribell Hough Work Phone: [facility] Work Phone: 12-24-2021 13:21-0500 Diastolic blood pressure 90 mm[Hg] Dr. Maribell Hough Work Phone: [facility] Work Phone: 12-24-2021 13:21-0500 Heart rate 88 /min Dr. Maribell Hough Work Phone: [facility] Work Phone: 12-24-2021 13:21-0500 Respiratory rate 16 /min Dr. Maribell Hough Work Phone: [facility] Work Phone: 12-24-2021 13:21-0500 SaO2% (BldA) [Mass fraction] 97 % Dr. Maribell Hough Work Phone: [facility] Work Phone: 12-24-2021 13:21-0500 Systolic blood pressure 154 mm[Hg] Dr. Maribell Hough Work Phone: [facility] Work Phone: Encounters Encounter Date Encounter Type Care Provider Facility Start: 08-16-2025 End: 08-16-2025 ambulatory Maribell Hough Facility:[facility] Start: 08-01-2025 End: 08-01-2025 Patient encounter procedure aTo Espinoza [place] -[facility] Work Phone: Start: 08-01-2025 End: 08-01-[address] Maribell Hough MD Work Phone: -[facility] Start: 05-01-2025 End: 05-01-[address] Maribell Hough MD Work Phone: -[facility] Start: 05-01-2025 End: 05-01-[address] Maribell Hough MD -[facility] Start: 05-01-2025 End: 05-01-2025 ambulatory Maribell Hough Facility:[facility] Start: 02-03-2025 End: 02-03-[address] Maribell Hough MD Work Phone: [facility] Work Phone: Start: 02-03-2025 End: 02-03-[address] Marbiell Hough MD Work Phone: -[facility] Work Phone: Start: 02-03-2025 End: 02-03-2025 ambulatory DAVID OBRIEN Facility:[facility] Start: 10-26-2024 End: 10-26-2024 Patient encounter procedure Tao Espinoza [place] -[facility] Work Phone: Start: 10-26-2024 End: 10-26-2024 ambulatory Maribell Hough Facility:[facility] Start: 09-13-2024 End: 09-13-2024 ambulatory Maribell Hough Facility:[facility] Start: 07-21-2023 End: 07-21-2023 ambulatory [facility] Work Phone: Start: 07-21-2023 End: 07-21-2023 Patient encounter procedure [facility] Work Phone: Start: 11-19-2022 End: 11-19-[address] Maribell Hough Work Phone: [facility] Work Phone: Start: 11-19-2022 End: 11-19-[address] Maribell Hough Work Phone: [facility] Start: 09-02-2022 End: 09-02-[address] Maribell Hough Work Phone: [facility] Start: 08-26-2022 End: 08-26-[address] Maribell Hough Work Phone: [facility] Start: 08-20-2022 Non-patient / Non-visit Dr. Gaurang Hough Work Phone: [facility] Start: 08-20-2022 End: 08-20-2022 Admission to same day surgery center Dr. Maribell Hoguh Work Phone: [facility] Start: 08-20-2022 End: 08-20-[address] Maribell Hough Work Phone: [facility] Work Phone: Start: 08-19-2022 Non-patient / Non-visit Dr. Gaurang Hough Work Phone: [facility] Start: 08-04-2022 End: 08-04-[address] Maribell Hough Work Phone: [facility], [facility] Start: 07-01-2022 End: 07-01-2022 ambulatory [facility] Work Phone: Start: 07-01-2022 End: 07-01-2022 Patient encounter procedure [facility] Start: 04-12-2022 End: 04-12-[address] [facility] Start: 2022 End: [address] Maribell Hough Work Phone: [facility] Start: 12-24-2021 End: 12-24-[address] [facility]ough [facility] Start: 12-24-2021 End: 12-24-[address] Maribell Hough Work Phone: [facility] Start: 12-16-2021 End: 12-16-[address] [facility] Procedures Date Procedure Procedure Detail Performing Clinician [...] trns/reargm t f/c/c/m/n/a/g/h/f 10sqcm/< TIS TRNFR F/C/C/M/N/A/G/H/F [facility] Work Phone: Start: 08-20-2022 Anes nerve muscle td n fascia&bursa forearm wrist ANESTH LOWER ARM SURGERY [facility] Work Phone: Start: 08-20-2022 Exc lesion tdn shth/ jt capsl hand/fngr REMOVE TENDON SHEATH LESION [facility] Work Phone: Start: 08-20-2022 Patient discharge [facility] Work Phone: Patient referral [facility] Work Phone: Immunizations Immunization Date Immunization Notes Care Provider Fa cilijosé 02-05-2021 Covid (Pfizer) Dr. Maribell waggoner Work Phone: [facility] 01-15-2021 Covid (Pfizer) Dr. Maribell waggoner Work Phone: [facility] 11-17-2018 tetanus toxoid, redu bhavna diphtheria toxoid, and acellular pertussis vaccine, adsorbed Dr. Maribell Hough Work Phone: [facility] Payers Date Payer Category Payer Self-pay [id number] 2014 Private Health Insurance [id number] 2011 Medicare [id number] Medicare [id number] Unknown [id number] Unknown [id number] Unknown [id number] [id number] Unknown [id number] [id number] [id number] Unknown [id number] [id number] Unknown [id number] 2.16.8 [id number] Social History Date Type Detail Facility Start: 01-30-2022 End: 09-02-2022 Tobacco smoking status NHIS Unknown if ever smoked [facility] Start: 1945 Sex Assigned At Female [facility] Start: 02-24-2024 Tobacco smoking stat us NHIS Never smoked tobacco (finding) [facility] Start: 02-07-2025 Sex Female (finding) [facility] Sex Female [facility] Goals Date Patient Goal Desired Activity /State Mental Status Date Assessment Result Facility 08-20-2022 Cognitive function Voice/Name [facility] Work Phone: Progress note 08-01-2025 Note Date & Type Note Facility 08-01-2025 Progress note [facility] Evaluation note Note Date & Type Note Facility Evaluation note Diagnosis Onset Date 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 [facility] Work Phone: Evaluation note Note Date & Type Note Facility Evaluation note No assessment information availa ble [facility] Work Phone: Evaluation note Note Date & [...] hand chronic Heberden's nodes of both hands [facility] Work Phone: Hospital Discharge instructions Note Date & Type Note Facility Hospital Discharge instructions Additional Instructions Implant Used?: No [facility] Work Phone: Progress note Note Date & Type Note Facility Progress note Note Date/Time August 01, 2025 10:46am [facility] [address], [address] [place] [address] OFFICE VISIT Date of Service: 08/01/25 MR#: [id number] Acct: [id number] Name: GARCIA MELGOZA Rep #: [id number] : 1945 Provider: LANIE Paez Age/Sex: 80/F Location: [facility] Status: Signed Intake Vital Signs 02/24/24 09:28 [...] (1,000 unit) tablet (Vitamin D3) glucosamine 750 kn-hgtjsx-ihh 2-C 1 tab PO BID 1 08/01/25 History 30 mg-D3 1,000 unit-silva 1 mg tablet (Taaenjnnwqo-Barbluhjliv-NOL + vitD) turmeric root extract 500 mg 500 mg PO DAILY 04/29/21 08/01/25 History capsule tolterodine 4 mg capsule,extended 4 mg PO QHS 01/30/22 08/01/25 History release 24 hr itmkjb-exnufzvq-agwqlcx 36,000 cap PO BID 08/13/22 0 08/01/25 History 36,000-114,000-180,000 unit capsule,delay rel (Creon) amoxicillin 875 mg tablet 875 mg PO BID #20 tabs 08/0108/01/25 Rx Have you fallen in the past year?: No Nurse's Note: Cough, congestion, sneezing. Started before the fair was going on, but cough andcongestion stayed. [facility] Medical History (Updated 07/27/24 @ 08:46 by [...] and no acute distress Orientation: alert, awake [facility] Head: normal to inspection Ears: hearing grossly [...] Cosigner Signature: Date (if applicable) CC: ~ [facility] Work Phone: Reason for referral (narrative) Note Date & Type Note Facility Reason for referral (narrative) No reason for referral information available [facility] Work Phone: Chief Complaint and Reason for [...] Yes January 30, 2022 10:31am Power of Assorter Laundry Yes January 30 10:31am Advance Directive Response Recorded Date/ Time Name of Medical Power of Assorter Laundry DAUGHTER August 13, 2022 3:16pm Advance Directives Yes February 16, 015 12:44pm Living Will Yes August 13 3:16pm Power of Assorter Laundry Yes August 13 022 3:16pm Advance Directive Response Recorded Date/ Time Name of Medical Power of Assorter Laundry DAUGHTER August 13, 2022 2:16pm Advance Directives Yes February 16, 015 11:44am Living Will Yes August 13 2:16pm Power of Assorter Laundry Yes August 13, 022 2:16pm Advance Directive Response Recorded Date/ Time Advance Directives Yes February 16, 015 12:44pm Living Will Yes October 5th, 202 2 3:16pm Power of Assorter Laundry Yes August 13 2 022 3:16pm Advance [...] section and content) DATE CREATED AUTHOR 09/08/2025 [facility] FOR RECORDS PERTAINING TO PATIENTS WHO ARE [...] BE BASED ON THE PRIMARY CLINICAL RECORDS. [facility] [employer] [facility]. provides no warranty or guarantee of the accuracy or completeness of information in this document.
[2025-10-26 02:07] LABS: Calprotectin, Stool 134 ug/g (0-120)
== END | disposition home or self-care (01) ==
LOC: MTLAB 07:58
PROVIDERS: PCP Family Medicine; Referring Provider Student in an Organized Health Care Education/Training Program; Visit Provider Student in an Organized Health Care Education/Training Program
DX: R19.5 Other fecal abnormalities (principal); K58.9 Irritable bowel syndrome, unspecified; R19.7 Diarrhea, unspecified
CPT/HCPCS: 83993; 87177; 87209; 87329; 87493; 87506